=== PATIENT | female | born 1985 | race American Indian/Alaskan Native ===

== ENCOUNTER 2021-08-30 17:06 | Inpatient (IN) | payer OTHER ==
[2021-08-30] MEDS ORDERED: SODIUM CHLORIDE 0.9% 1000 ML 1,000 ML IV ONE (17:28)
[2021-08-30 18:22] LABS: Alanine Aminotransferase 30 units/L (7-56); Albumin 4.8 g/dL (3.9-5); BUN/Creatinine Ratio 15; Blood Urea Nitrogen 34 mg/dL (7-17); Calcium 10.5 mg/dL (8.4-10.2); Hemolysis Index 34
[2021-08-30] MEDS ORDERED: INSULIN REGULAR, HUMAN 100 UNITS/1 ML IV ONE (18:31)
[2021-08-30 19:04] LABS: INR 1.05 (0.87-1.13); Monocytes # (Auto) 1.7 K/mm3 (0.0-0.8); Monocytes % (Auto) 10.2 % (0.0-7.3)
--- NOTE | 2021-08-30 19:10 | Cat Scan Report ---
CT BRAIN: 08/30/2021 INDICATION / CLINICAL INFORMATION: Altered Mental Status. COMPARISON: None available. FINDINGS: BRAIN/INTRACRANIAL STRUCTURES: Unenhanced CT images of the brain were obtained. There is no evidence of acute abnormality. Ventricles and sulci are prominent in size for a patient o f this age, consistent with some diffuse cerebral atrophy. There is no evidence of acute ischemic injury, hemorrhage, or mass. There are no abnormal extra-axial fluid collections. EXTRACRANIAL STRUCTURES: Unremarkable. IMPRESSION: No acute abnormality. Diffuse cerebral atrophy. All CT scans at this location are performed using dose reduction to ALARA by means of automated expos ure control. Signer Name: Gurinder Wyatt MD Signed: 08/30/2021 7:06 PM Workstation Name: [id number]
[2021-08-30 19:11] LABS: Basophils % (Auto) 0.3 % (0.0-1.8); Hematocrit 48.2 % (30.3-42.9); Hemoglobin 12.3 gm/dl (10.1-14.3); Lymphocytes % (Auto) 5.9 % (13.4-35.0); Mean Corpuscular HGB Conc 26 % (30-34); Mean Corpuscular Volume 101 fl (79-97); Platelet Count 386 K/mm3 (140-440); Red Blood Count 4.79 M/mm3 (3.65-5.03); Red Cell Distribution Width 18.2 % (13.2-15.2)
--- NOTE | 2021-08-30 19:34 | Emergency Department Report ---
ED Altered Mental Status HPI - General Chief Complaint: Altered Mental Status Stated Complaint: AMS Time Seen by Provider: 08/30/21 17:22 Source: EMS Mode of arrival: Stretcher Limitations: Altered Mental Status - History of Present Illness Initial Comments: PT ARRIVING FROM HOME, FAMILY CALLED FOR AMS. "BEEN OFF SINCE THIS MORNING". URINATED SELF. BGL READ "HIGH" FOR EMS. 18L [place] Complaint: altered mental status, confusion, decreased responsiveness -: hour(s) Severity: severe Consistency of Symptoms: getting worse Context: diabetes Associated Symptoms: denies other symptoms - Related Data Allergies Allergy/AdvReac Type Severity Reaction Status Date / Time No Known Allergies Allergy Verified 08/30/21 17:10 ED Review of Systems ROS: Stated complaint: AMS Other details as noted in HPI Comment: Unobtainable due to pts medical conditions ED Past Medical Hx - Past Medical History Hx Hypertension: Yes Hx Diabetes: Yes ED Physical Exam - General Limitations: Altered Mental Status General appearance: lethargic, obese - Head Head exam: Present: atraumatic, normocephalic - Eye Eye exam: Present: normal appearance - ENT ENT exam: Present: mucous membranes moist - Neck Neck exam: Present: normal inspection - Respiratory Respiratory exam: Present: normal lung sounds bilaterally. Absent: respiratory distress - Cardiovascular Cardiovascular Exam: Present: normal rhythm, tachycardia. Absent: systolic murmur, diastolic murmur, rubs, gallop - GI/Abdominal GI/Abdominal exam: Present: soft, normal bowel sounds - Extremities Exam Extremities exam: Present: normal inspection - Back Exam Back exam: Present: normal inspection - Neurological Exam Neurological exam: Present: altered - Expanded Neurological Exam Expanded Patient oriented to: Absent: person, place, time - Psychiatric Psychiatric exam: Present: normal affect, normal mood - Skin Skin exam: Present: warm, dry, intact, normal color. Absent: rash ED Course Vital Signs 08/30/21 08/30/21 08/30/21 17:07 17:38 17:42 Temperature 98 F Pulse Rate 104 H 108 H Respiratory 20 30 H Rate Blood Pressure 135/74 [Left] O2 Sat by Pulse 96 97 Oximetry - Reevaluation(s) Reevaluation #1: 08/30/21 19:31 work up showed high BS 1955 , fluids given ct head negative , insulin bolus and drip given DKA protocol - Lab Data Result diagrams: 08/30/21 17:40 08/30/21 18:45 Lab Results 08/30/21 08/30/21 08/30/21 Range/Units 17:26 17:40 17:40 WBC 16.3 H (4.5-11.0) K/mm3 RBC 4.79 (3.65-5.03) M/mm3 Hgb 12.3 (10.1-14.3) gm/dl Hct 48.2 H (30.3-42.9) % MCV 101 H (79-97) fl MCH 26 L (28-32) pg MCHC 26 L (30-34) % RDW 18.2 H (13.2-15.2) % Plt Count 386 (140-440) K/mm3 Lymph % (Auto) 5.9 L (13.4-35.0) % [place] % (Auto) 10.2 H (0.0-7.3) % Eos % (Auto) 0.0 (0.0-4.3) % Baso % (Auto) 0.3 (0.0-1.8) % Lymph # (Auto) 1.0 L (1.2-5.4) K/mm3 [place] # (Auto) 1.7 H (0.0-0.8) K/mm3 Eos # (Auto) 0.0 (0.0-0.4) K/mm3 Baso # (Auto) 0.0 (0.0-0.1) K/mm3 Seg Neutrophils % 83.6 H (40.0-70.0) % Seg Neutrophils # 13.6 H (1.8-7.7) K/mm3 PT 14.9 (12.2-14.9) Sec. INR 1.05 (0.87-1.13) Sodium (137-145) mmol/L Potassium (3.6-5.0) mmol/L Chloride (98-107) mmol/L Carbon Dioxide (22-30) mmol/L Anion Gap mmol/L BUN (7-17) mg/dL Creatinine (0.6-1.2) mg/dL Estimated GFR ml/min BUN/Creatinine Ratio % Glucose (65-100) mg/dL POC Glucose > 600 H (70-105) mg/dL Ketones Quantitative (Negative) Lactic Acid (0.7-2.0) mmol/L Calcium (8.4-10.2) mg/dL Phosphorus (2.5-4.5) mg/dL Magnesium (1.7-2.3) mg/dL Total Bilirubin (0.1-1.2) mg/dL AST (5-40) units/L ALT (7-56) units/L Alkaline Phosphatase (35-129) units/L Ammonia (25-60) umol/L Total Creatine Kinase (30-135) units/L Troponin T (0.00-0.029) ng/mL Total Protein (6.3-8.2) g/dL Albumin (3.9-5) g/dL Albumin/Globulin Ratio % Salicylates (2.8-20.0) mg/dL Acetaminophen (10.0-30.0) ug/mL Plasma/Serum Alcohol (0-0.07) % 08/30/21 08/30/21 08/30/21 Range/Units 17:40 17:40 17:40 WBC (4.5-11.0) K/mm3 RBC (3.65-5.03) M/mm3 Hgb (10.1-14.3) gm/dl Hct (30.3-42.9) % MCV (79-97) fl MCH (28-32) pg MCHC (30-34) % RDW (13.2-15.2) % Plt Count (140-440) K/mm3 Lymph % (Auto) (13.4-35.0) % [place] % (Auto) (0.0-7.3) % Eos % (Auto) (0.0-4.3) % Baso % (Auto) (0.0-1.8) % Lymph # (Auto) (1.2-5.4) K/mm3 [place] # (Auto) (0.0-0.8) K/mm3 Eos # (Auto) (0.0-0.4) K/mm3 Baso # (Auto) (0.0-0.1) K/mm3 Seg Neutrophils % (40.0-70.0) % Seg Neutrophils # (1.8-7.7) K/mm3 PT (12.2-14.9) Sec. INR (0.87-1.13) Sodium 129 L (137-145) mmol/L Potassium 5.5 H (3.6-5.0) mmol/L Chloride 87.6 L (98-107) mmol/L Carbon Dioxide 16 L (22-30) mmol/L Anion Gap 31 mmol/L BUN 34 H (7-17) mg/dL Creatinine 2.3 H (0.6-1.2) mg/dL Estimated GFR 29 ml/min BUN/Creatinine Ratio 15 % Glucose 1955 H* (65-100) mg/dL POC Glucose (70-105) mg/dL Ketones Quantitative (Negative) Lactic Acid 4.20 H* (0.7-2.0) mmol/L Calcium 10.5 H (8.4-10.2) mg/dL Phosphorus (2.5-4.5) mg/dL Magnesium (1.7-2.3) mg/dL Total Bilirubin 0.30 (0.1-1.2) mg/dL AST 17 (5-40) units/L ALT 30 (7-56) units/L Alkaline Phosphatase 274 H (35-129) units/L Ammonia (25-60) umol/L Total Creatine Kinase (30-135) units/L Troponin T < 0.010 (0.00-0.029) ng/mL Total Protein 9.0 H (6.3-8.2) g/dL Albumin 4.8 (3.9-5) g/dL Albumin/Globulin Ratio 1.1 % Salicylates < 0.3 L (2.8-20.0) mg/dL Acetaminophen (10.0-30.0) ug/mL Plasma/Serum Alcohol (0-0.07) % 08/30/21 08/30/21 08/30/21 Range/Units 17:40 17:40 17:40 WBC (4.5-11.0) K/mm3 RBC (3.65-5.03) M/mm3 Hgb (10.1-14.3) gm/dl Hct (30.3-42.9) % MCV (79-97) fl MCH (28-32) pg MCHC (30-34) % RDW (13.2-15.2) % Plt Count (140-440) K/mm3 Lymph % (Auto) (13.4-35.0) % [place] % (Auto) (0.0-7.3) % Eos % (Auto) (0.0-4.3) % Baso % (Auto) (0.0-1.8) % Lymph # (Auto) (1.2-5.4) K/mm3 [place] # (Auto) (0.0-0.8) K/mm3 Eos # (Auto) (0.0-0.4) K/mm3 Baso # (Auto) (0.0-0.1) K/mm3 Seg Neutrophils % (40.0-70.0) % Seg Neutrophils # (1.8-7.7) K/mm3 PT (12.2-14.9) Sec. INR (0.87-1.13) Sodium (137-145) mmol/L Potassium (3.6-5.0) mmol/L Chloride (98-107) mmol/L Carbon Dioxide (22-30) mmol/L Anion Gap mmol/L BUN (7-17) mg/dL Creatinine (0.6-1.2) mg/dL Estimated GFR ml/min BUN/Creatinine Ratio % Glucose (65-100) mg/dL POC Glucose (70-105) mg/dL Ketones Quantitative (Negative) Lactic Acid (0.7-2.0) mmol/L Calcium (8.4-10.2) mg/dL Phosphorus (2.5-4.5) mg/dL Magnesium (1.7-2.3) mg/dL Total Bilirubin (0.1-1.2) mg/dL AST (5-40) units/L ALT (7-56) units/L Alkaline Phosphatase (35-129) units/L Ammonia 18.0 L (25-60) umol/L Total Creatine Kinase (30-135) units/L Troponin T (0.00-0.029) ng/mL Total Protein (6.3-8.2) g/dL Albumin (3.9-5) g/dL Albumin/Globulin Ratio % Salicylates (2.8-20.0) mg/dL Acetaminophen 5.0 L (10.0-30.0) ug/mL Plasma/Serum Alcohol < 0.01 (0-0.07) % 08/30/21 08/30/21 08/30/21 Range/Units 17:40 17:40 18:45 WBC (4.5-11.0) K/mm3 RBC (3.65-5.03) M/mm3 Hgb (10.1-14.3) gm/dl Hct (30.3-42.9) % MCV (79-97) fl MCH (28-32) pg MCHC (30-34) % RDW (13.2-15.2) % Plt Count (140-440) K/mm3 Lymph % (Auto) (13.4-35.0) % [place] % (Auto) (0.0-7.3) % Eos % (Auto) (0.0-4.3) % Baso % (Auto) (0.0-1.8) % Lymph # (Auto) (1.2-5.4) K/mm3 [place] # (Auto) (0.0-0.8) K/mm3 Eos # (Auto) (0.0-0.4) K/mm3 Baso # (Auto) (0.0-0.1) K/mm3 Seg Neutrophils % (40.0-70.0) % Seg Neutrophils # (1.8-7.7) K/mm3 PT (12.2-14.9) Sec. INR (0.87-1.13) Sodium 134 L (137-145) mmol/L Potassium 4.6 (3.6-5.0) mmol/L Chloride 92.3 L (98-107) mmol/L Carbon Dioxide 14 L (22-30) mmol/L Anion Gap 32 mmol/L BUN 34 H (7-17) mg/dL Creatinine 2.0 H (0.6-1.2) mg/dL Estimated GFR 35 ml/min BUN/Creatinine Ratio 17 % Glucose 1848 H* (65-100) mg/dL POC Glucose (70-105) mg/dL Ketones Quantitative Small (Negative) Lactic Acid (0.7-2.0) mmol/L Calcium 10.0 (8.4-10.2) mg/dL Phosphorus 3.30 (2.5-4.5) mg/dL Magnesium 3.60 H (1.7-2.3) mg/dL Total Bilirubin (0.1-1.2) mg/dL AST (5-40) units/L ALT (7-56) units/L Alkaline Phosphatase (35-129) units/L Ammonia (25-60) umol/L Total Creatine Kinase 203 H (30-135) units/L Troponin T (0.00-0.029) ng/mL Total Protein (6.3-8.2) g/dL Albumin (3.9-5) g/dL Albumin/Globulin Ratio % Salicylates (2.8-20.0) mg/dL Acetaminophen (10.0-30.0) ug/mL Plasma/Serum Alcohol (0-0.07) % - EKG Data EKG shows normal: sinus rhythm Rate: tachycardia Critical Care Time: Yes Critical care time in (mins) excluding proc time.: 65 Critical care attestation.: If time is entered above; I have spent that time in minutes in the direct care of this critically ill patient, excluding procedure time. ED Disposition Clinical Impression: Altered mental status, DKA (diabetic ketoacidosis), MARITZA (acute kidney injury), Hyperglycemia Disposition: 09 ADMITTED INPATIENT Is pt being admited?: Yes Does the pt Need Aspirin: No Condition: Critical Instructions: Diabetic Ketoacidosis (ED) Referrals: PRIMARY CARE, [Primary Care Provider] - 3-5 Days
[2021-08-30] MEDS: INSULIN REGULAR, HUMAN 100 UNITS in SODIUM CHLORIDE 0.9% 99 ML IV SCH (19:42)
--- NOTE | 2021-08-30 20:27 | XRay Report ---
CHEST 1 VIEW 08/30/2021 7:08 PM INDICATION / CLINICAL INFORMATION: Dyspnea. COMPARISON: None available. FINDINGS: SUPPORT DEVICES: None. HEART / MEDIASTINUM: No significant abnormality. LUNGS / PLEURA: There is patchy airspace opacity in the medial right lung base which could represent atelectasis or pneumonia. There are low lung volumes bilaterally. No pneumothorax. ADDITIONAL FINDINGS: No significant additional findings. IMPRESSION: 1. There are low lung volumes bilaterally. There is mild airspace opacity in the medial right lung ba se which could represent atelectasis or pneumonia. Signer Name: Rudy Wilcox MD Signed: 08/30/2021 8:23 PM Workstation Name: [email or web address]
[2021-08-30] MEDS ORDERED: oxyCODONE /ACETAMINOPHEN 5-325MG TAB PO PRN (20:51)
[2021-08-30] MEDS ORDERED: HYDROmorphone 1 MG/1 ML INJ IV PRN (20:51)
[2021-08-30] MEDS ORDERED: ONDANSETRON 4 MG/2 ML INJ IV PRN (20:51)
[2021-08-30] MEDS ORDERED: ACETAMINOPHEN 325 MG TAB PO PRN (20:51)
--- NOTE | 2021-08-30 20:51 | History and Physical Report ---
History of Present Illness Date of examination: 08/30/21 Date of admission: August 30, 2021 Chief complaint: Altered sensorium since morning History of present illness: Patient brought in by EMS for altered sensorium since morning. Patient had urinary incontinence at home. Blood glucose level was read as high by EMS. Patient has a history of diabetes but has been very noncompliant and was never on insulin. Patient is lethargic and unable to give more history. Data collected from the family says that patient was never on insulin and was noncompliant about taking any medicine. Patient apparently has diabetes and hypertension but no follow-up with PCPs. Not taking any medications. No fever or chills. Polyuria and polydipsia present. Patient is morbidly obese. ED course: Patient's blood glucose level was around 1840 and patient being admitted for DKA and electrolyte abnormalities - Past Medical History --Hypertension: Yes --Diabetes: Yes -past surgical history --unavailable -social history --unavailable -family history --Htn Review of Systems ROS: Constitutional no weight loss or weight gain no fever or chills HEENT no sore throat no post nasal drip no diplopia Neck no neck stiffness no lymph gland enlargement Chest and lungs no shortness of breath cough or wheezing CVS no chest pain no diaphoresis no palpitations GI no nausea no vomiting no diarrhea Genitourinary system polyuria present Musculoskeletal system no muscle pains no joint pains [employer] altered sensorium and lethargic Skin no rash no itching Psychiatric no depression no homicidal or suicidal tendencies Hematologic no lymphedema or bruising Endocrine polydipsia and polyphagia present, also polyuria present Medications and Allergies Allergies Allergy/AdvReac Type Severity Reaction Status Date / Time No Known Allergies Allergy Verified 08/30/21 17:10 Active Meds: Active Medications Insulin Human Regular 100 (units/ Sodium Chloride) 100 mls @ 1 mls/hr IV TITR SEAN; Protocol Last Admin: 08/30/21 19:42 Dose: 8 units/hr, 8 mls/hr Exam - Constitutional Vitals: Temp Pulse Resp BP Pulse Ox 97.6 F 112 H 30 H 107/72 99 08/30/21 19:15 08/30/21 19:15 08/30/21 19:15 08/30/21 19:15 08/30/21 19:15 General appearance: Present: mild distress, well-nourished, obese (Morbidly obese with BMI of 44.4) - EENT Eyes: Present: PERRL ENT: hearing intact, clear oral mucosa - Neck Neck: Present: supple, normal ROM - Respiratory Respiratory effort: normal Respiratory: bilateral: CTA - Cardiovascular Heart rate: 98 Rhythm: regular Heart Sounds: Present: S1 & S2. Absent: rub, click - Extremities Extremities: no ischemia, pulses intact, pulses symmetrical, No edema Peripheral Pulses: within normal limits - Abdominal General gastrointestinal: Present: soft, non-tender, non-distended, normal bowel sounds Female genitourinary: Present: normal - Rectal Rectal Exam: deferred - Integumentary Integumentary: Present: clear, warm, dry - Musculoskeletal Musculoskeletal: generalized weakness - Psychiatric Psychiatric: other (Patient with altered sensorium and lethargic) - Neurologic Neurologic: moves all extremities, other (Lethargic) - Allied Health Allied health notes reviewed: nursing, social work, case management HEART Score - HEART Score EKG: Normal Age: < 45 Risk factors: 1-2 risk factors Troponin: Troponin T < 0.010 ng/mL (0.00-0.029) 08/30/21 17:40 Troponin: < normal limit - Critical Actions Critical Actions: 0-3 pts:0.9-1.7%risk of adverse cardiac event.Candidate for discharge Results - Labs CBC & Chem 7: 08/30/21 17:40 08/31/21 03:20 Labs: Laboratory Last Values WBC 16.3 K/mm3 (4.5-11.0) H 08/30/21 17:40 RBC 4.79 M/mm3 (3.65-5.03) 08/30/21 17:40 Hgb 12.3 gm/dl (10.1-14.3) 08/30/21 17:40 Hct 48.2 % (30.3-42.9) H 08/30/21 17:40 MCV 101 fl (79-97) H 08/30/21 17:40 MCH 26 pg (28-32) L 08/30/21 17:40 MCHC 26 % (30-34) L 08/30/21 17:40 RDW 18.2 % (13.2-15.2) H 08/30/21 17:40 Plt Count 386 K/mm3 (140-440) 08/30/21 17:40 Lymph % (Auto) 5.9 % (13.4-35.0) L 08/30/21 17:40 [place] % (Auto) 10.2 % (0.0-7.3) H 08/30/21 17:40 Eos % (Auto) 0.0 % (0.0-4.3) 08/30/21 17:40 Baso % (Auto) 0.3 % (0.0-1.8) 08/30/21 17:40 Lymph # (Auto) 1.0 K/mm3 (1.2-5.4) L 08/30/21 17:40 [place] # (Auto) 1.7 K/mm3 (0.0-0.8) H 08/30/21 17:40 Eos # (Auto) 0.0 K/mm3 (0.0-0.4) 08/30/21 17:40 Baso # (Auto) 0.0 K/mm3 (0.0-0.1) 08/30/21 17:40 Seg Neutrophils % 83.6 % (40.0-70.0) H 08/30/21 17:40 Seg Neutrophils # 13.6 K/mm3 (1.8-7.7) H 08/30/21 17:40 PT 14.9 Sec. (12.2-14.9) 08/30/21 17:40 INR 1.05 (0.87-1.13) 08/30/21 17:40 Sodium 134 mmol/L (137-145) L 08/30/21 18:45 Potassium 4.6 mmol/L (3.6-5.0) 08/30/21 18:45 Chloride 92.3 mmol/L (98-107) L 08/30/21 18:45 Carbon Dioxide 14 mmol/L (22-30) L 08/30/21 18:45 Anion Gap 32 mmol/L 08/30/21 18:45 BUN 34 mg/dL (7-17) H 08/30/21 18:45 Creatinine 2.0 mg/dL (0.6-1.2) H 08/30/21 18:45 Estimated GFR 35 ml/min 08/30/21 18:45 BUN/Creatinine Ratio 17 % 08/30/21 18:45 Glucose 1848 mg/dL (65-100) H* 08/30/21 18:45 POC Glucose > 600 mg/dL (70-105) H 08/30/21 17:26 Ketones Quantitative Small (Negative) 08/30/21 17:40 Lactic Acid 4.20 mmol/L (0.7-2.0) H* 08/30/21 17:40 Calcium 10.0 mg/dL (8.4-10.2) 08/30/21 18:45 Phosphorus 3.30 mg/dL (2.5-4.5) 08/30/21 18:45 Magnesium 3.60 mg/dL (1.7-2.3) H 08/30/21 18:45 Total Bilirubin 0.30 mg/dL (0.1-1.2) 08/30/21 17:40 AST 17 units/L (5-40) 08/30/21 17:40 ALT 30 units/L (7-56) 08/30/21 17:40 Alkaline Phosphatase 274 units/L (35-129) H 08/30/21 17:40 Ammonia 18.0 umol/L (25-60) L 08/30/21 17:40 Total Creatine Kinase 203 units/L (30-135) H 08/30/21 17:40 Troponin T < 0.010 ng/mL (0.00-0.029) 08/30/21 17:40 Total Protein 9.0 g/dL (6.3-8.2) H 08/30/21 17:40 Albumin 4.8 g/dL (3.9-5) 08/30/21 17:40 Albumin/Globulin Ratio 1.1 % 08/30/21 17:40 Salicylates < 0.3 mg/dL (2.8-20.0) L 08/30/21 17:40 Acetaminophen 5.0 ug/mL (10.0-30.0) L 08/30/21 17:40 Plasma/Serum Alcohol < 0.01 % (0-0.07) 08/30/21 17:40 Short CBC 08/30/21 Range/Units 17:40 WBC 16.3 H (4.5-11.0) K/mm3 Hgb 12.3 (10.1-14.3) gm/dl Hct 48.2 H (30.3-42.9) % Plt Count 386 (140-440) K/mm3 [facility] 08/30/21 08/30/21 08/30/21 17:40 18:45 20:24 Sodium 129 L 134 L 136 L Potassium 5.5 H 4.6 4.4 Chloride 87.6 L 92.3 L 98.0 Carbon Dioxide 16 L 14 L 10 L BUN 34 H 34 H 35 H Creatinine 2.3 H 2.0 H 2.2 H Glucose 1955 H* 1848 H* 1720 H* Calcium 10.5 H 10.0 9.4 08/30/21 08/31/21 08/31/21 23:45 01:23 03:20 Sodium 142 143 Potassium 3.9 4.1 Chloride 103.7 105.8 Carbon Dioxide 17 L D 17 L BUN 39 H 39 H Creatinine 2.6 H 2.8 H Glucose 1518 H* 1421 H* 1181 H* Calcium 9.8 9.7 Cardiac Enzymes 08/30/21 08/30/21 Range/Units 17:40 17:40 Total Creatine Kinase 203 H (30-135) units/L Troponin T < 0.010 (0.00-0.029) ng/mL Liver Function 08/30/21 Range/Units 17:40 Total Bilirubin 0.30 (0.1-1.2) mg/dL AST 17 (5-40) units/L ALT 30 (7-56) units/L Alkaline Phosphatase 274 H (35-129) units/L Albumin 4.8 (3.9-5) g/dL Urine 08/30/21 Range/Units 22:56 Urine Color Straw (Yellow) Urine pH 6.0 (5.0-7.0) Ur Specific [place] 1.029 (1.003-1.030) Urine Protein 30 mg/dl (Negative) mg/dL Urine Glucose (UA) >=500 (Negative) mg/dL Short CBC 08/30/21 Range/Units 17:40 WBC 16.3 H (4.5-11.0) K/mm3 Hgb 12.3 (10.1-14.3) gm/dl Hct 48.2 H (30.3-42.9) % Plt Count 386 (140-440) K/mm3 [facility] 08/30/21 08/30/21 08/30/21 17:40 18:45 20:24 Sodium 129 L 134 L 136 L Potassium 5.5 H 4.6 4.4 Chloride 87.6 L 92.3 L 98.0 Carbon Dioxide 16 L 14 L 10 L BUN 34 H 34 H 35 H Creatinine 2.3 H 2.0 H 2.2 H Glucose 1955 H* 1848 H* 1720 H* Calcium 10.5 H 10.0 9.4 08/30/21 08/31/21 08/31/21 23:45 01:23 03:20 Sodium 142 143 Potassium 3.9 4.1 Chloride 103.7 105.8 Carbon Dioxide 17 L D 17 L BUN 39 H 39 H Creatinine 2.6 H 2.8 H Glucose 1518 H* 1421 H* 1181 H* Calcium 9.8 9.7 Cardiac Enzymes 08/30/21 08/30/21 Range/Units 17:40 17:40 Total Creatine Kinase 203 H (30-135) units/L Troponin T < 0.010 (0.00-0.029) ng/mL Liver Function 08/30/21 Range/Units 17:40 Total Bilirubin 0.30 (0.1-1.2) mg/dL AST 17 (5-40) units/L ALT 30 (7-56) units/L Alkaline Phosphatase 274 H (35-129) units/L Albumin 4.8 (3.9-5) g/dL Urine 08/30/21 Range/Units 22:56 Urine Color Straw (Yellow) Urine pH 6.0 (5.0-7.0) Ur Specific [place] 1.029 (1.003-1.030) Urine Protein 30 mg/dl (Negative) mg/dL Urine Glucose (UA) >=500 (Negative) mg/dL - Imaging and Cardiology Imaging and Cardiology: Head CT No acute abnormality Diffuse cerebral atrophy Chest x-ray Low lung volumes bilaterally Mild airspace opacity in the medial right lung base which could represent atelectasis or pneumonia Assessment and Plan Assessment and plan: Critical care statement The high probability OF a clinically significant sudden or life-threatening deterioration of the cardiorespiratory system and endocrine system required my full and direct attention, intervention and postoperative management. The aggregate critical care time was 40 minutes. The time is in addition to time spent performing reported procedures but includes the followin: Data review and interpretation 2: Patient assessment and monitoring of vital signs 3: Documentation 4:: Medication orders and management Advance Directives: Yes (Full code) VTE prophylaxis?: Chemical Plan of care discussed with patient/family: Yes - Patient Problems (1) Acute metabolic encephalopathy Current Visit: Yes Status: Acute Plan to address problem: Secondary to hyperosmolar state Patient is lethargic and confused Should improve with correction of blood glucose levels No acute findings on head CT except cerebral atrophy which may be overread (2) Hyperosmolar non-ketotic state in patient with type 2 diabetes mellitus Current Visit: Yes Status: Acute Plan to address problem: Urine ketones only 20 More in favor of hyperosmolar nonketotic state Noncompliant with oral hypoglycemics Not on insulin DKA protocol initiated IV fluids and IV insulin Anion gap is 32 and bicarb is 14 (3) Systemic inflammatory response syndrome Current Visit: Yes Status: Acute Plan to address problem: White count is elevated with 16,300 WBCs and lactic acid of 5.1 In favor of systemic inflammatory response syndrome (4) Pneumonia Current Visit: Yes Status: Acute Qualifiers: Pneumonia type: due to unspecified organism Plan to address problem: Doubtful opacity on the right lower lung Treat empirically with IV ceftriaxone and IV Zithromax White count is elevated (5) Metabolic acidosis Current Visit: Yes Status: Acute Plan to address problem: Secondary to severe hyperglycemia and hyperosmolar state IV insulin and IV fluids for now Anion gap is 32 and bicarb is 14 Sodium bicarb as necessary (6) Hyponatremia Current Visit: Yes Status: Acute Plan to address problem: Should correct with correction of blood glucose levels (7) MARITZA (acute kidney injury) Current Visit: Yes Status: Acute Plan to address problem: Nephrology consult if necessary More in favor of dehydration and volume depletion Vasomotor nephropathy IV fluids for now (8) Morbid obesity due to excess calories Current Visit: Yes Status: Chronic Plan to address problem: Patient to be given referral to bariatric surgery department in the hospital--- Dr. Fine at the time of discharge (9) DVT prophylaxis Current Visit: Yes Status: Acute Plan to address problem: On anticoagulation and GI prophylaxis (10) Advance care planning Current Visit: Yes Status: Acute Plan to address problem: Family counseled regarding noncompliance. Disease education conducted care plan discussion diagnosis discussed prognosis discussed with the family. Patient is full code. Family acknowledges understanding and agreement with care plan. +30 minutes.
[2021-08-30] MEDS ORDERED: DEXTROSE 50% IN WATER (25GM) 50 ML SYRINGE IV PRN (20:57)
[2021-08-30] MEDS ORDERED: D5W/0.45% NACL/KCL 20 MEQ 20 MEQ/1,000 ML BAG IV SCH (21:00)
[2021-08-30 21:12] LABS: Calcium 9.4 mg/dL (8.4-10.2)
[2021-08-30] MEDS: POTASSIUM CHLORIDE 10 MEQ 10 MEQ/100 ML BAG IV SCH (22:54)
[2021-08-30] MEDS: HEPARIN 5,000 UNIT/1 ML VIAL SUB-Q SCH (22:54)
[2021-08-30 23:14] LABS: Bilirubin,Urine NEG (Negative); Blood,Urine LG (Negative); Color,Urine Straw (Yellow); Mucus,Urine FEW /HPF; Urobilinogen,Urine < 2.0 mg/dL (<2.0)
[2021-08-30] MEDS ORDERED: LORazepam 2 MG/ML VIAL IV PRN (23:29)
[2021-08-30] MEDS ORDERED: SODIUM CHLORIDE 0.9% 1000 ML 1,000 ML ONE (23:31)
[2021-08-30 23:34] LABS: Amphetamine Screen,Urine PRESUMPTIVE NEGATIVE; Benzodiazepines Screen,Urine PRESUMPTIVE NEGATIVE; Cannabinoid Screen,Urine PRESUMPTIVE NEGATIVE; Cocaine Screen,Urine PRESUMPTIVE NEGATIVE; Methadone Screen,Urine PRESUMPTIVE NEGATIVE; Opiate Screen,Urine PRESUMPTIVE NEGATIVE
[2021-08-30] MEDS: LORazepam 2 MG/ML VIAL IV PRN (23:38)
[2021-08-31 00:08] LABS: Calcium 9.8 mg/dL (8.4-10.2)
[2021-08-31] MEDS: POTASSIUM CHLORIDE 10 MEQ 10 MEQ/100 ML BAG IV SCH ×3 (00:28→02:32)
[2021-08-31 01:49] LABS: Calcium 9.7 mg/dL (8.4-10.2)
[2021-08-31] MEDS ORDERED: LACTATED RINGERS 1,000 ML IV ONE ×3 (03:29→05:41)
[2021-08-31] MEDS ORDERED: LACTATED RINGERS 1,000 ML ONE (03:30)
[2021-08-31] MEDS: SODIUM CHLORIDE 0.9% 1000 ML 1,000 ML IV SCH ×2 (04:32→16:17)
[2021-08-31] MEDS: INSULIN REGULAR, HUMAN 100 UNITS in SODIUM CHLORIDE 0.9% 99 ML IV SCH ×4 (04:33→16:17)
[2021-08-31 06:50] LABS: Calcium 9.2 mg/dL (8.4-10.2)
[2021-08-31] MEDS ORDERED: cefTRIAXone/NS 2 GM/100 ML 2 GM/100 ML BAG IV SCH ×2 (07:00)
[2021-08-31] MEDS ORDERED: AZITHROMYCIN/NS 500 MG/250 ML 500 MG/250 ML BAG IV SCH (07:00)
[2021-08-31] MEDS: LORazepam 2 MG/ML VIAL IV PRN ×3 (08:35→21:06)
[2021-08-31] MEDS: HEPARIN 5,000 UNIT/1 ML VIAL SUB-Q SCH ×2 (10:49→21:06)
[2021-08-31 11:35] LABS: Calcium 9.9 mg/dL (8.4-10.2)
--- NOTE | 2021-08-31 13:28 | Consultation ---
History of Present Illness - Reason for Consult Consult date: 08/31/21 AMS and DKA - History of Present Illness 35 y/o obese female admitted with altered mental status and found to be in DKA Past History Past Medical History: diabetes Past Surgical History: Other (unable to obtain) Social history: other (unable to obtain) Family history: no significant family history (unable to obtain) Medications and Allergies Allergies Allergy/AdvReac Type Severity Reaction Status Date / Time No Known Allergies Allergy Verified 08/30/21 17:10 Active Meds: Active Medications Acetaminophen (Acetaminophen 325 Mg Tab) 650 mg PO Q4H PRN PRN Reason: Pain MILD(1-3)/Fever >100.5/MUÑOZ Dextrose (Dextrose 50% In Water (25gm) 50 Ml Syringe) 0 ml IV Q30MIN PRN; Protocol PRN Reason: Hypoglycemia Heparin Sodium (Porcine) (Heparin 5,000 Unit/1 Ml Vial) 5,000 unit SUB-Q Q12HR SEAN Last Admin: 08/31/21 10:49 Dose: 5,000 unit Hydromorphone HCl (Hydromorphone 1 Mg/1 Ml Inj) 0.5 mg IV Q3H PRN PRN Reason: Pain , Severe (7-10) Insulin Human Regular 100 (units/ Sodium Chloride) 100 mls @ 1 mls/hr IV TITR SEAN; Protocol Last Titration: 08/31/21 13:10 Dose: 32 units/hr, 32 mls/hr Potassium Chloride/Dextrose/Sod Cl (D5w/0.45% Nacl/Kcl 20 Meq) 20 meq in 1,000 mls @ 125 mls/hr IV DIRECT SEAN Sodium Chloride (Nacl 0.9% 1000 Ml) 1,000 mls @ 125 mls/hr IV DIRECT SEAN Last Admin: 08/31/21 04:32 Dose: 125 mls/hr Lorazepam (Lorazepam 2 Mg/Ml Vial) 2 mg IV Q4H PRN PRN Reason: Agitation Last Admin: 08/31/21 08:35 Dose: 2 mg Lorazepam (Lorazepam 2 Mg/Ml Vial) 1 mg IV Q4H PRN PRN Reason: Agitation Last Admin: 08/31/21 04:20 Dose: 1 mg Ondansetron HCl (Ondansetron 4 Mg/2 Ml Inj) 4 mg IV Q8H PRN PRN Reason: Nausea And Vomiting Oxycodone/Acetaminophen (Oxycodone /Acetaminophen 5-325mg Tab) 1 tab PO Q6H PRN PRN Reason: Pain, Moderate (4-6) Sodium Chloride (Sodium Chloride 0.9% 10 Ml Flush Syringe) 10 ml IV BID SEAN Last Admin: 08/31/21 10:49 Dose: 10 ml Sodium Chloride (Sodium Chloride 0.9% 10 Ml Flush Syringe) 10 ml IV PRN PRN PRN Reason: LINE FLUSH Review of Systems ROS unobtainable: due to mental status Exam - Constitutional Vitals: Temp Pulse Resp BP Pulse Ox 98.2 F 109 H 22 122/79 96 08/31/21 11:40 08/31/21 12:00 08/30/21 22:00 08/30/21 22:00 08/31/21 12:00 General appearance: Present: obese, disheveled - Neck Neck: Present: supple, other (large circumference) - Respiratory Respiratory effort: other (tachypnic) Respiratory: bilateral: CTA - Cardiovascular Rhythm: regular Heart Sounds: Present: S1 & S2 - Extremities Extremities: no ischemia - Abdominal General gastrointestinal: Present: soft, distended Female genitourinary: Present: deferred - Rectal Rectal Exam: deferred - Integumentary Integumentary: Present: warm (with multiple tattoos) Results - Labs CBC & Chem 7: 09/03/21 04:25 09/03/21 04:25 Labs: Abnormal lab results 08/30/21 08/30/21 08/30/21 Range/Units 03:20 17:26 17:40 WBC 16.3 H (4.5-11.0) K/mm3 Hct 48.2 H (30.3-42.9) % MCV 101 H (79-97) fl MCH 26 L (28-32) pg MCHC 26 L (30-34) % RDW 18.2 H (13.2-15.2) % Lymph % (Auto) 5.9 L (13.4-35.0) % [place] % (Auto) 10.2 H (0.0-7.3) % Lymph # (Auto) 1.0 L (1.2-5.4) K/mm3 [place] # (Auto) 1.7 H (0.0-0.8) K/mm3 Seg Neutrophils % 83.6 H (40.0-70.0) % Seg Neutrophils # 13.6 H (1.8-7.7) K/mm3 Sodium (137-145) mmol/L Potassium (3.6-5.0) mmol/L Chloride (98-107) mmol/L Carbon Dioxide (22-30) mmol/L BUN (7-17) mg/dL Creatinine (0.6-1.2) mg/dL Glucose (65-100) mg/dL POC Glucose > 600 H (70-105) mg/dL Lactic Acid 5.10 H* (0.7-2.0) mmol/L Calcium (8.4-10.2) mg/dL Phosphorus (2.5-4.5) mg/dL Magnesium (1.7-2.3) mg/dL Alkaline Phosphatase (35-129) units/L Ammonia (25-60) umol/L Total Creatine Kinase (30-135) units/L Total Protein (6.3-8.2) g/dL Salicylates (2.8-20.0) mg/dL Acetaminophen (10.0-30.0) ug/mL 08/30/21 08/30/21 08/30/21 Range/Units 17:40 17:40 17:40 WBC (4.5-11.0) K/mm3 Hct (30.3-42.9) % MCV (79-97) fl MCH (28-32) pg MCHC (30-34) % RDW (13.2-15.2) % Lymph % (Auto) (13.4-35.0) % [place] % (Auto) (0.0-7.3) % Lymph # (Auto) (1.2-5.4) K/mm3 [place] # (Auto) (0.0-0.8) K/mm3 Seg Neutrophils % (40.0-70.0) % Seg Neutrophils # (1.8-7.7) K/mm3 Sodium 129 L (137-145) mmol/L Potassium 5.5 H (3.6-5.0) mmol/L Chloride 87.6 L (98-107) mmol/L Carbon Dioxide 16 L (22-30) mmol/L BUN 34 H (7-17) mg/dL Creatinine 2.3 H (0.6-1.2) mg/dL Glucose 1955 H* (65-100) mg/dL POC Glucose (70-105) mg/dL Lactic Acid 4.20 H* (0.7-2.0) mmol/L Calcium 10.5 H (8.4-10.2) mg/dL Phosphorus (2.5-4.5) mg/dL Magnesium (1.7-2.3) mg/dL Alkaline Phosphatase 274 H (35-129) units/L Ammonia (25-60) umol/L Total Creatine Kinase (30-135) units/L Total Protein 9.0 H (6.3-8.2) g/dL Salicylates < 0.3 L (2.8-20.0) mg/dL Acetaminophen (10.0-30.0) ug/mL 08/30/21 08/30/21 08/30/21 Range/Units 17:40 17:40 17:40 WBC (4.5-11.0) K/mm3 Hct (30.3-42.9) % MCV (79-97) fl MCH (28-32) pg MCHC (30-34) % RDW (13.2-15.2) % Lymph % (Auto) (13.4-35.0) % [place] % (Auto) (0.0-7.3) % Lymph # (Auto) (1.2-5.4) K/mm3 [place] # (Auto) (0.0-0.8) K/mm3 Seg Neutrophils % (40.0-70.0) % Seg Neutrophils # (1.8-7.7) K/mm3 Sodium (137-145) mmol/L Potassium (3.6-5.0) mmol/L Chloride (98-107) mmol/L Carbon Dioxide (22-30) mmol/L BUN (7-17) mg/dL Creatinine (0.6-1.2) mg/dL Glucose (65-100) mg/dL POC Glucose (70-105) mg/dL Lactic Acid (0.7-2.0) mmol/L Calcium (8.4-10.2) mg/dL Phosphorus (2.5-4.5) mg/dL Magnesium (1.7-2.3) mg/dL Alkaline Phosphatase (35-129) units/L Ammonia 18.0 L (25-60) umol/L Total Creatine Kinase 203 H (30-135) units/L Total Protein (6.3-8.2) g/dL Salicylates (2.8-20.0) mg/dL Acetaminophen 5.0 L (10.0-30.0) ug/mL 08/30/21 08/30/21 08/30/21 Range/Units 18:45 20:24 21:09 WBC (4.5-11.0) K/mm3 Hct (30.3-42.9) % MCV (79-97) fl MCH (28-32) pg MCHC (30-34) % RDW (13.2-15.2) % Lymph % (Auto) (13.4-35.0) % [place] % (Auto) (0.0-7.3) % Lymph # (Auto) (1.2-5.4) K/mm3 [place] # (Auto) (0.0-0.8) K/mm3 Seg Neutrophils % (40.0-70.0) % Seg Neutrophils # (1.8-7.7) K/mm3 Sodium 134 L 136 L (137-145) mmol/L Potassium (3.6-5.0) mmol/L Chloride 92.3 L (98-107) mmol/L Carbon Dioxide 14 L 10 L (22-30) mmol/L BUN 34 H 35 H (7-17) mg/dL Creatinine 2.0 H 2.2 H (0.6-1.2) mg/dL Glucose 1848 H* 1720 H* (65-100) mg/dL POC Glucose > 600 H (70-105) mg/dL Lactic Acid (0.7-2.0) mmol/L Calcium (8.4-10.2) mg/dL Phosphorus (2.5-4.5) mg/dL Magnesium 3.60 H (1.7-2.3) mg/dL Alkaline Phosphatase (35-129) units/L Ammonia (25-60) umol/L Total Creatine Kinase (30-135) units/L Total Protein (6.3-8.2) g/dL Salicylates (2.8-20.0) mg/dL Acetaminophen (10.0-30.0) ug/mL 08/30/21 08/30/21 08/30/21 Range/Units 22:19 23:45 23:45 WBC (4.5-11.0) K/mm3 Hct (30.3-42.9) % MCV (79-97) fl MCH (28-32) pg MCHC (30-34) % RDW (13.2-15.2) % Lymph % (Auto) (13.4-35.0) % [place] % (Auto) (0.0-7.3) % Lymph # (Auto) (1.2-5.4) K/mm3 [place] # (Auto) (0.0-0.8) K/mm3 Seg Neutrophils % (40.0-70.0) % Seg Neutrophils # (1.8-7.7) K/mm3 Sodium (137-145) mmol/L Potassium (3.6-5.0) mmol/L Chloride (98-107) mmol/L Carbon Dioxide 17 L D (22-30) mmol/L BUN 39 H (7-17) mg/dL Creatinine 2.6 H (0.6-1.2) mg/dL Glucose 1518 H* (65-100) mg/dL POC Glucose > 600 H (70-105) mg/dL Lactic Acid (0.7-2.0) mmol/L Calcium (8.4-10.2) mg/dL Phosphorus 1.40 L D (2.5-4.5) mg/dL Magnesium 3.60 H (1.7-2.3) mg/dL Alkaline Phosphatase (35-129) units/L Ammonia (25-60) umol/L Total Creatine Kinase (30-135) units/L Total Protein (6.3-8.2) g/dL Salicylates (2.8-20.0) mg/dL Acetaminophen (10.0-30.0) ug/mL 08/31/21 08/31/21 08/31/21 Range/Units 01:23 03:20 05:40 WBC (4.5-11.0) K/mm3 Hct (30.3-42.9) % MCV (79-97) fl MCH (28-32) pg MCHC (30-34) % RDW (13.2-15.2) % Lymph % (Auto) (13.4-35.0) % [place] % (Auto) (0.0-7.3) % Lymph # (Auto) (1.2-5.4) K/mm3 [place] # (Auto) (0.0-0.8) K/mm3 Seg Neutrophils % (40.0-70.0) % Seg Neutrophils # (1.8-7.7) K/mm3 Sodium 152 H D (137-145) mmol/L Potassium (3.6-5.0) mmol/L Chloride 116.3 H (98-107) mmol/L Carbon Dioxide 17 L 18 L (22-30) mmol/L BUN 39 H 36 H (7-17) mg/dL Creatinine 2.8 H 2.2 H (0.6-1.2) mg/dL Glucose 1421 H* 1181 H* 896 H* (65-100) mg/dL POC Glucose (70-105) mg/dL Lactic Acid (0.7-2.0) mmol/L Calcium (8.4-10.2) mg/dL Phosphorus (2.5-4.5) mg/dL Magnesium (1.7-2.3) mg/dL Alkaline Phosphatase (35-129) units/L Ammonia (25-60) umol/L Total Creatine Kinase (30-135) units/L Total Protein (6.3-8.2) g/dL Salicylates (2.8-20.0) mg/dL Acetaminophen (10.0-30.0) ug/mL 08/31/21 08/31/21 08/31/21 Range/Units 07:44 08:55 09:58 WBC (4.5-11.0) K/mm3 Hct (30.3-42.9) % MCV (79-97) fl MCH (28-32) pg MCHC (30-34) % RDW (13.2-15.2) % Lymph % (Auto) (13.4-35.0) % [place] % (Auto) (0.0-7.3) % Lymph # (Auto) (1.2-5.4) K/mm3 [place] # (Auto) (0.0-0.8) K/mm3 Seg Neutrophils % (40.0-70.0) % Seg Neutrophils # (1.8-7.7) K/mm3 Sodium (137-145) mmol/L Potassium (3.6-5.0) mmol/L Chloride (98-107) mmol/L Carbon Dioxide (22-30) mmol/L BUN (7-17) mg/dL Creatinine (0.6-1.2) mg/dL Glucose (65-100) mg/dL POC Glucose 553 H 468 H 473 H (70-105) mg/dL Lactic Acid (0.7-2.0) mmol/L Calcium (8.4-10.2) mg/dL Phosphorus (2.5-4.5) mg/dL Magnesium (1.7-2.3) mg/dL Alkaline Phosphatase (35-129) units/L Ammonia (25-60) umol/L Total Creatine Kinase (30-135) units/L Total Protein (6.3-8.2) g/dL Salicylates (2.8-20.0) mg/dL Acetaminophen (10.0-30.0) ug/mL 08/31/21 08/31/21 08/31/21 Range/Units 10:59 Unknown Unknown WBC (4.5-11.0) K/mm3 Hct (30.3-42.9) % MCV (79-97) fl MCH (28-32) pg MCHC (30-34) % RDW (13.2-15.2) % Lymph % (Auto) (13.4-35.0) % [place] % (Auto) (0.0-7.3) % Lymph # (Auto) (1.2-5.4) K/mm3 [place] # (Auto) (0.0-0.8) K/mm3 Seg Neutrophils % (40.0-70.0) % Seg Neutrophils # (1.8-7.7) K/mm3 Sodium 157 H (137-145) mmol/L Potassium (3.6-5.0) mmol/L Chloride 122.7 H (98-107) mmol/L Carbon Dioxide (22-30) mmol/L BUN 32 H (7-17) mg/dL Creatinine 1.7 H (0.6-1.2) mg/dL Glucose 508 H* (65-100) mg/dL POC Glucose 456 H (70-105) mg/dL Lactic Acid 3.10 H* (0.7-2.0) mmol/L Calcium (8.4-10.2) mg/dL Phosphorus (2.5-4.5) mg/dL Magnesium (1.7-2.3) mg/dL Alkaline Phosphatase (35-129) units/L Ammonia (25-60) umol/L Total Creatine Kinase (30-135) units/L Total Protein (6.3-8.2) g/dL Salicylates (2.8-20.0) mg/dL Acetaminophen (10.0-30.0) ug/mL - Imaging and Cardiology Chest x-ray: image reviewed (clear) Assessment and Plan 35 y/o obese female admitted with metabolic encephalopathy and DKA Insulin drip NPO Ok with ativan PRN Continue ICU care CCT 31 minutes.
[2021-08-31] MEDS ORDERED: INSULIN REGULAR, HUMAN 100 UNITS/1 ML IV SCH (14:00)
--- NOTE | 2021-08-31 15:29 | Progress Note ---
Assessment and Plan Assessment and plan: This is a 35-year-old female with hypertension, DM, medical noncompliance and morbid obesity admitted with DKA Neuro: Acute metabolic encephalopathy, h/o medical noncompliance -Avoid delirium -Reorientation as needed -Maintain sleep-wake cycle -CT head on admission showed diffuse cerebral atrophy, no evidence of acute ischemic injury, hemorrhage or mass Cardiac: h/o HTN -Blood pressure monitoring per protocol -Resume home antihypertensive regimen if needed once obtained Respiratory: NAD -Pulmonary hygiene -SPO2 monitoring -Supplemental oxygen as needed GI: h/o morbid obesity -24 hours +111 -PPI -N.p.o. while on insulin drip -Start BR once appropriate -Encourage lifestyle and dietary modifications upon discharge : Hypernatremia, hyperchloremia, high anion gap metabolic acidosis, acute kidney injury -Nephrology consulted, appreciate recommendations -MARITZA likely secondary to vasomotor nephropathy as evidenced by improvement with IVF -Strict intake and output -Renally dose medications -Avoid nephrotoxic medications -Daily weights -Consider further work-up if worsening -Trend BMP ID: SIRs -Presented with leukocytosis, acute kidney injury, lactic acidosis -S/p 5 L bolus -Presents with a lactic acid of 5.1 -Monitor WBC and temperature curve Endo: DKA, h/o DM -CCM consulted, appreciate recommendations -DKA protocol -Accu-Cheks per protocol -BMP per protocol -Avoid hypoglycemia -Give IV 5 units insulin x1 -Hemoglobin A1c pending Heme: Leukocytosis -Trend CBC -Transfuse hemoglobin less than 7 -Monitor for signs of bleeding -Heparin subcu -SCDs to BLE while in bed The high probability of a clinically significant, sudden or life threatening deterioration of the [multi] system(s) required my full and direct attention, intervention and personal management. The aggregate critical care time was [60] minutes. This time is in addition to time spent performing reported procedures but includes the following: [x] Data Review and interpretation [x] Patient assessment and monitoring of vital signs [x] Documentation [x] Medication orders and management Disposition Plan: icu Total Time Spent with Patient (Minutes): 60 History Interval history: This is a 35-year-old female with hypertension, DM, medical noncompliance and morbid obesity who presented to emergency department on 08/30 via EMS who found the patient at her home with urinary incontinence blood sugar via Accu-Chek was read as high after being called by family member who arrived to the house after patient failed to pick it up from school. Arrival to the emergency department patient was in the emergency department patient was found to be tachycardic, tachypneic and had leukocytosis and lactic acidosi and lab work was consistent with DKA. Of note patient's blood glucose on arrival was 1955. Patient was admitted to the hospital service with consult to [facility] for DKA on DKA protocol. 08/31: Patient remains hyperglycemic despite being on over 30 units of insulin, given 10 units IV insulin, maintain on IV fluids of normal saline patient has not met criteria to be switched to dextrose containing IV fluids. Given for LR boluses overnight. Will replete potassium with K-Phos and obtain A1c. Antibiotics stopped. Hospitalist Physical - Constitutional Vitals: Temp Pulse Resp BP Pulse Ox 98.2 F 109 H 22 122/79 96 08/31/21 11:40 08/31/21 12:00 08/30/21 22:00 08/30/21 22:00 08/31/21 12:00 General appearance: Present: mild distress, well-nourished, obese (Morbidly obese with BMI of 44.4) - EENT Eyes: Present: PERRL, EOM intact - Neck Neck: Present: normal ROM - Respiratory Respiratory effort: normal Respiratory: bilateral: diminished - Cardiovascular Rhythm: regular Heart Sounds: Present: S1 & S2. Absent: systolic murmur, diastolic murmur - Extremities Extremities: no ischemia, pulses intact, pulses symmetrical, No edema, normal temperature, normal color, Full ROM Peripheral Pulses: within normal limits - Abdominal General gastrointestinal: soft, non-tender, non-distended, normal bowel sounds - Integumentary Integumentary: Present: warm, dry - Psychiatric Psychiatric: other - Neurologic Neurologic: other (not interactive) - Allied Health Allied health notes reviewed: nursing, RT, social work HEART Score - HEART Score EKG: Normal Age: < 45 Risk factors: 1-2 risk factors Troponin: Troponin T < 0.010 ng/mL (0.00-0.029) 08/30/21 17:40 Troponin: < normal limit - Critical Actions Critical Actions: 0-3 pts:0.9-1.7%risk of adverse cardiac event.Candidate for discharge Results - Labs CBC & Chem 7: 08/30/21 17:40 08/31/21 Unknown Labs: Laboratory Last Values WBC 16.3 K/mm3 (4.5-11.0) H 08/30/21 17:40 RBC 4.79 M/mm3 (3.65-5.03) 08/30/21 17:40 Hgb 12.3 gm/dl (10.1-14.3) 08/30/21 17:40 Hct 48.2 % (30.3-42.9) H 08/30/21 17:40 MCV 101 fl (79-97) H 08/30/21 17:40 MCH 26 pg (28-32) L 08/30/21 17:40 MCHC 26 % (30-34) L 08/30/21 17:40 RDW 18.2 % (13.2-15.2) H 08/30/21 17:40 Plt Count 386 K/mm3 (140-440) 08/30/21 17:40 Lymph % (Auto) 5.9 % (13.4-35.0) L 08/30/21 17:40 Coleman % (Auto) 10.2 % (0.0-7.3) H 08/30/21 17:40 Eos % (Auto) 0.0 % (0.0-4.3) 08/30/21 17:40 Baso % (Auto) 0.3 % (0.0-1.8) 08/30/21 17:40 Lymph # (Auto) 1.0 K/mm3 (1.2-5.4) L 08/30/21 17:40 Coleman # (Auto) 1.7 K/mm3 (0.0-0.8) H 08/30/21 17:40 Eos # (Auto) 0.0 K/mm3 (0.0-0.4) 08/30/21 17:40 Baso # (Auto) 0.0 K/mm3 (0.0-0.1) 08/30/21 17:40 Seg Neutrophils % 83.6 % (40.0-70.0) H 08/30/21 17:40 Seg Neutrophils # 13.6 K/mm3 (1.8-7.7) H 08/30/21 17:40 PT 14.9 Sec. (12.2-14.9) 08/30/21 17:40 INR 1.05 (0.87-1.13) 08/30/21 17:40 Sodium 157 mmol/L (137-145) H 08/31/21 Unknown Potassium 4.2 mmol/L (3.6-5.0) 08/31/21 Unknown Chloride 122.7 mmol/L (98-107) H 08/31/21 Unknown Carbon Dioxide 22 mmol/L (22-30) 08/31/21 Unknown Anion Gap 17 mmol/L 08/31/21 Unknown BUN 32 mg/dL (7-17) H 08/31/21 Unknown Creatinine 1.7 mg/dL (0.6-1.2) H 08/31/21 Unknown Estimated GFR 42 ml/min 08/31/21 Unknown BUN/Creatinine Ratio 19 % 08/31/21 Unknown Glucose 508 mg/dL (65-100) H* 08/31/21 Unknown POC Glucose 350 mg/dL (70-105) H 08/31/21 15:15 Ketones Quantitative Small (Negative) 08/30/21 17:40 Lactic Acid 3.10 mmol/L (0.7-2.0) H* 08/31/21 Unknown Calcium 9.9 mg/dL (8.4-10.2) 08/31/21 Unknown Phosphorus 1.40 mg/dL (2.5-4.5) L D 08/30/21 23:45 Magnesium 3.60 mg/dL (1.7-2.3) H 08/30/21 23:45 Total Bilirubin 0.30 mg/dL (0.1-1.2) 08/30/21 17:40 AST 17 units/L (5-40) 08/30/21 17:40 ALT 30 units/L (7-56) 08/30/21 17:40 Alkaline Phosphatase 274 units/L (35-129) H 08/30/21 17:40 Ammonia 18.0 umol/L (25-60) L 08/30/21 17:40 Total Creatine Kinase 203 units/L (30-135) H 08/30/21 17:40 Troponin T < 0.010 ng/mL (0.00-0.029) 08/30/21 17:40 Total Protein 9.0 g/dL (6.3-8.2) H 08/30/21 17:40 Albumin 4.8 g/dL (3.9-5) 08/30/21 17:40 Albumin/Globulin Ratio 1.1 % 08/30/21 17:40 Urine Color Straw (Yellow) 08/30/21 22:56 Urine Turbidity Clear (Clear) 08/30/21 22:56 Urine pH 6.0 (5.0-7.0) 08/30/21 22:56 Ur Specific [place] 1.029 (1.003-1.030) 08/30/21 22:56 Urine Protein 30 mg/dl mg/dL (Negative) 08/30/21 22:56 Urine Glucose (UA) >=500 mg/dL (Negative) 08/30/21 22:56 Urine Ketones 20 mg/dL (Negative) 08/30/21 22:56 Urine Blood Lg (Negative) 08/30/21 22:56 Urine Nitrite Neg (Negative) 08/30/21 22:56 Urine Bilirubin Neg (Negative) 08/30/21 22: Urine Urobilinogen < 2.0 mg/dL (<2.0) 08/30/21 22:56 Ur Leukocyte Esterase Neg (Negative) 08/30/21 22:56 Urine WBC (Auto) 6.0 /HPF (0.0-6.0) 08/30/21 22:56 Urine RBC (Auto) 14.0 /HPF (0.0-6.0) 08/30/21 22:56 U Epithel Cells (Auto) 1.0 /HPF (0-13.0) 08/30/21 22:56 Urine Mucus Few /HPF 08/30/21 22:56 Urine Yeast (Budding) Few /HPF 08/30/21 22:56 Salicylates < 0.3 mg/dL (2.8-20.0) L 08/30/21 17:40 Urine Opiates Screen Presumptive negative 08/30/21 22:56 Urine Methadone Screen Presumptive negative 08/30/21 22:56 Acetaminophen 5.0 ug/mL (10.0-30.0) L 08/30/21 17:40 Ur Barbiturates Screen Presumptive negative 08/30/21 22:56 Ur Phencyclidine Scrn Presumptive negative 08/30/21 22:56 Ur Amphetamines Screen Presumptive negative 08/30/21 22:56 U Benzodiazepines Scrn Presumptive negative 08/30/21 22:56 Urine Cocaine Screen Presumptive negative 08/30/21 22:56 U Marijuana (THC) Screen Presumptive negative 08/30/21 22:56 Drugs of Abuse Note Disclamer 08/30/21 22:56 Plasma/Serum Alcohol < 0.01 % (0-0.07) 08/30/21 17:40 Myers/IV: Voiding Method Indwelling Catheter Active Medications - Current Medications Current Medications: Generic Name Dose Route Start Last Admin Trade Name Freq PRN Reason Stop Dose Admin Acetaminophen 650 mg 08/30/21 20:51 Acetaminophen 325 Mg Tab PO Q4H PRN Pain MILD(1-3)/Fever >100.5/MUÑOZ Dextrose 0 ml 08/30/21 20:57 Dextrose 50% In Water (25gm) 50 Ml Syringe IV Q30MIN PRN Hypoglycemia Protocol Heparin Sodium (Porcine) 5,000 unit 08/30/21 22:00 08/31/21 10:49 Heparin 5,000 Unit/1 Ml Vial SUB-Q 5,000 unit Q12HR SEAN Administration Hydromorphone HCl 0.5 mg 08/30/21 20:51 Hydromorphone 1 Mg/1 Ml Inj IV Q3H PRN Pain , Severe (7-10) Insulin Human Regular 100 100 mls @ 1 mls/hr 08/30/21 19:00 08/31/21 14:05 units/ Sodium Chloride IV 32 units/hr TITR SEAN 32 mls/hr Titration Protocol 1 UNITS/HR Potassium Chloride/Dextrose/Sod Cl 20 meq in 1,000 mls @ 125 mls/hr 08/30/21 21:00 D5w/0.45% Nacl/Kcl 20 Meq IV DIRECT SEAN Sodium Chloride 1,000 mls @ 125 mls/hr 08/31/21 03:15 08/31/21 04:32 Nacl 0.9% 1000 Ml IV 125 mls/hr DIRECT SEAN Administration Insulin Human Regular 10 units 08/31/21 14:00 Insulin Regular, Human 100 Units/1 Ml IV 08/31/21 17:00 ONCE@1400 SEAN Lorazepam 2 mg 08/30/21 23:28 08/31/21 08:35 Lorazepam 2 Mg/Ml Vial IV 2 mg Q4H PRN Administration Agitation Lorazepam 1 mg 08/30/21 23:29 08/31/21 04:20 Lorazepam 2 Mg/Ml Vial IV 1 mg Q4H PRN Administration Agitation Ondansetron HCl 4 mg 08/30/21 20:51 Ondansetron 4 Mg/2 Ml Inj IV Q8H PRN Nausea And Vomiting Oxycodone/Acetaminophen 1 tab 08/30/21 20:51 Oxycodone /Acetaminophen 5-325mg Tab PO Q6H PRN Pain, Moderate (4-6) Sodium Chloride 10 ml 08/30/21 22:00 08/31/21 10:49 Sodium Chloride 0.9% 10 Ml Flush Syringe IV 10 ml BID SEAN Administration Sodium Chloride 10 ml 08/30/21 20:51 Sodium Chloride 0.9% 10 Ml Flush Syringe IV PRN PRN LINE FLUSH
[2021-08-31] MEDS ORDERED: POTASSIUM PHOSPHATE 40 MMOL in SODIUM CHLORIDE 0.9% 500 ML 500 ML IV ONE (17:00)
[2021-08-31 21:10] LABS: Calcium 8.9 mg/dL (8.4-10.2)
[2021-08-31] MEDS ORDERED: POTASSIUM CHLORIDE 20 MEQ in DEXTROSE 5% IN WATER 1,000 ML IV SCH (22:00)
[2021-09-01] MEDS: LORazepam 2 MG/ML VIAL IV PRN ×5 (01:06→19:58)
[2021-09-01 01:22] LABS: Calcium 8.7 mg/dL (8.4-10.2)
[2021-09-01] MEDS: INSULIN REGULAR, HUMAN 100 UNITS in SODIUM CHLORIDE 0.9% 99 ML IV SCH ×3 (02:18→23:19)
[2021-09-01] MEDS: DEXTROSE 5% IN WATER 1,000 ML IV SCH ×6 (02:20→22:46)
[2021-09-01 05:43] LABS: Albumin 3.6 g/dL (3.9-5); Calcium 8.9 mg/dL (8.4-10.2)
[2021-09-01] MEDS ORDERED: DEXTROSE 10% *Hypoglycemia IV PRN (10:01)
[2021-09-01] MEDS: HEPARIN 5,000 UNIT/1 ML VIAL SUB-Q SCH ×2 (10:45→21:58)
[2021-09-01] MEDS ORDERED: HALOPERIDOL LACTATE 5 MG/1 ML INJ IV SCH (11:00)
--- NOTE | 2021-09-01 11:48 | Progress Note ---
Assessment and Plan 35 y/o obese female admitted with metabolic encephalopathy and DKA Ok to feed patient Change to long acting insulin Can add some PRN haldol in addition to ativan May be ready for transfer tomorrow. Subjective Date of service: 09/01/21 Interval history: Much more alert today. Sad as she wants to go home. Getting agitated but calms down some with ativan. Objective - Constitutional Vitals: Vital Signs - 12hr 09/01/21 09/01/21 09/01/21 00:00 01:11 01:21 Temperature 100.5 F H Pulse Rate 111 H 111 H Pulse Rate [ 110 H From Monitor] Respiratory 45 H 45 H Rate Blood Pressure 146/104 146/104 O2 Sat by Pulse 96 96 97 Oximetry 09/01/21 09/01/21 09/01/21 01:30 01:41 01:51 Temperature Pulse Rate 111 H 113 H 112 H Pulse Rate [ From Monitor] Respiratory 43 H 52 H 42 H Rate Blood Pressure 162/99 162/99 162/99 O2 Sat by Pulse 96 97 97 Oximetry 09/01/21 09/01/21 09/01/21 02:00 02:11 02:21 Temperature Pulse Rate 112 H 112 H 112 H Pulse Rate [ From Monitor] Respiratory 46 H 42 H 44 H Rate Blood Pressure 161/102 161/102 161/102 O2 Sat by Pulse 97 97 97 Oximetry 09/01/21 09/01/21 09/01/21 02:30 02:41 02:51 Temperature Pulse Rate 111 H 111 H 111 H Pulse Rate [ From Monitor] Respiratory 43 H 43 H 41 H Rate Blood Pressure 151/95 151/95 151/95 O2 Sat by Pulse 97 96 96 Oximetry 09/01/21 09/01/21 09/01/21 03:00 03:11 03:21 Temperature Pulse Rate 111 H 112 H 112 H Pulse Rate [ From Monitor] Respiratory 40 H 43 H 42 H Rate Blood Pressure 173/92 167/92 167/92 O2 Sat by Pulse 97 96 96 Oximetry 09/01/21 09/01/21 09/01/21 03:30 03:41 03:51 Temperature Pulse Rate 113 H 111 H 109 H Pulse Rate [ From Monitor] Respiratory 43 H 42 H 46 H Rate Blood Pressure 157/84 157/84 157/84 O2 Sat by Pulse 95 96 97 Oximetry 09/01/21 09/01/21 09/01/21 04:00 04:11 04:21 Temperature 101.2 F H Pulse Rate 107 H 107 H 107 H Pulse Rate [ 110 H From Monitor] Respiratory 43 H 24 42 H Rate Blood Pressure 170/92 170/92 170/92 O2 Sat by Pulse 97 99 97 Oximetry 09/01/21 09/01/21 09/01/21 04:30 04:41 04:51 Temperature Pulse Rate 107 H 107 H 105 H Pulse Rate [ From Monitor] Respiratory 42 H 40 H 45 H Rate Blood Pressure 165/95 165/95 165/95 O2 Sat by Pulse 97 98 98 Oximetry 09/01/21 09/01/21 09/01/21 05:00 05:11 05:21 Temperature Pulse Rate 106 H 106 H 106 H Pulse Rate [ From Monitor] Respiratory 41 H 41 H 41 H Rate Blood Pressure 146/91 146/91 146/91 O2 Sat by Pulse 97 97 97 Oximetry 09/01/21 09/01/21 09/01/21 05:30 05:41 05:51 Temperature Pulse Rate 106 H 106 H 107 H Pulse Rate [ From Monitor] Respiratory 43 H 41 H 54 H Rate Blood Pressure 132/90 132/90 132/90 O2 Sat by Pulse 98 98 97 Oximetry 09/01/21 09/01/21 09/01/21 06:00 06:11 06:21 Temperature Pulse Rate 103 H 104 H 104 H Pulse Rate [ From Monitor] Respiratory 30 H 42 H 41 H Rate Blood Pressure 167/95 167/95 167/95 O2 Sat by Pulse 97 97 97 Oximetry 09/01/21 09/01/21 09/01/21 06:30 06:41 06:51 Temperature Pulse Rate 103 H 104 H 104 H Pulse Rate [ From Monitor] Respiratory 40 H 41 H 41 H Rate Blood Pressure 140/102 140/102 140/102 O2 Sat by Pulse 98 98 97 Oximetry 09/01/21 09/01/21 09/01/21 07:00 07:11 07:14 Temperature 100.0 F H Pulse Rate 102 H 101 H Pulse Rate [ From Monitor] Respiratory 44 H 42 H Rate Blood Pressure 143/95 143/95 O2 Sat by Pulse 97 97 Oximetry 09/01/21 09/01/21 09/01/21 07:21 07:30 07:41 Temperature Pulse Rate 101 H 101 H 102 H Pulse Rate [ From Monitor] Respiratory 39 H 39 H 37 H Rate Blood Pressure 143/95 155/86 155/86 O2 Sat by Pulse 97 97 98 Oximetry 09/01/21 09/01/21 09/01/21 07:51 08:00 08:11 Temperature Pulse Rate 102 H 102 H 101 H Pulse Rate [ 99 H From Monitor] Respiratory 37 H 36 H 34 H Rate Blood Pressure 155/86 168/92 168/92 O2 Sat by Pulse 96 95 97 Oximetry 09/01/21 09/01/21 09/01/21 08:21 08:30 08:41 Temperature Pulse Rate 101 H 101 H 100 H Pulse Rate [ From Monitor] Respiratory 38 H 40 H 41 H Rate Blood Pressure 168/92 183/99 183/99 O2 Sat by Pulse 97 98 97 Oximetry 09/01/21 09/01/21 09/01/21 08:51 09:00 09:11 Temperature Pulse Rate 100 H 100 H 98 H Pulse Rate [ From Monitor] Respiratory 38 H 38 H 38 H Rate Blood Pressure 183/99 179/88 179/88 O2 Sat by Pulse 97 97 96 Oximetry 09/01/21 09/01/21 09/01/21 09:21 09:30 09:41 Temperature Pulse Rate 99 H 99 H 99 H Pulse Rate [ From Monitor] Respiratory 37 H 39 H 38 H Rate Blood Pressure 179/88 156/98 156/98 O2 Sat by Pulse 97 97 98 Oximetry 09/01/21 09/01/21 09/01/21 09:51 10:00 10:11 Temperature Pulse Rate 101 H 99 H 101 H Pulse Rate [ From Monitor] Respiratory 33 H 52 H 24 Rate Blood Pressure 156/98 153/99 153/99 O2 Sat by Pulse 98 96 97 Oximetry 09/01/21 09/01/21 09/01/21 10:21 10:30 10:41 Temperature Pulse Rate 104 H 104 H 103 H Pulse Rate [ From Monitor] Respiratory 15 43 H 50 H Rate Blood Pressure 153/99 176/111 176/111 O2 Sat by Pulse 98 98 97 Oximetry 09/01/21 09/01/21 09/01/21 10:51 11:01 11:11 Temperature Pulse Rate 105 H 102 H 101 H Pulse Rate [ From Monitor] Respiratory 41 H 20 33 H Rate Blood Pressure 176/111 176/111 162/91 O2 Sat by Pulse 99 97 97 Oximetry 09/01/21 09/01/21 11:21 11:30 Temperature Pulse Rate 101 H 99 H Pulse Rate [ From Monitor] Respiratory 16 23 Rate Blood Pressure 162/91 187/102 O2 Sat by Pulse 97 97 Oximetry - Labs CBC & Chem 7: 09/03/21 04:25 09/03/21 04:25 Labs: Abnormal lab results 08/31/21 08/31/21 08/31/21 Range/Units 12:05 13:08 13:57 Sodium (137-145) mmol/L Chloride (98-107) mmol/L Carbon Dioxide (22-30) mmol/L BUN (7-17) mg/dL Creatinine (0.6-1.2) mg/dL Glucose (65-100) mg/dL POC Glucose 517 H 437 H 447 H (70-105) mg/dL Hemoglobin A1c (4-6) % Lactic Acid (0.7-2.0) mmol/L Phosphorus (2.5-4.5) mg/dL Alkaline Phosphatase (35-129) units/L Albumin (3.9-5) g/dL 08/31/21 08/31/21 08/31/21 Range/Units 15:15 15:52 17:09 Sodium (137-145) mmol/L Chloride (98-107) mmol/L Carbon Dioxide (22-30) mmol/L BUN (7-17) mg/dL Creatinine (0.6-1.2) mg/dL Glucose (65-100) mg/dL POC Glucose 350 H 325 H 278 H (70-105) mg/dL Hemoglobin A1c (4-6) % Lactic Acid (0.7-2.0) mmol/L Phosphorus (2.5-4.5) mg/dL Alkaline Phosphatase (35-129) units/L Albumin (3.9-5) g/dL 08/31/21 08/31/21 08/31/21 Range/Units 18:08 19:09 19:52 Sodium (137-145) mmol/L Chloride (98-107) mmol/L Carbon Dioxide (22-30) mmol/L BUN (7-17) mg/dL Creatinine (0.6-1.2) mg/dL Glucose (65-100) mg/dL POC Glucose 233 H 162 H 137 H (70-105) mg/dL Hemoglobin A1c (4-6) % Lactic Acid (0.7-2.0) mmol/L Phosphorus (2.5-4.5) mg/dL Alkaline Phosphatase (35-129) units/L Albumin (3.9-5) g/dL 08/31/21 08/31/21 08/31/21 Range/Units 20:44 20:45 20:51 Sodium 165 H* D (137-145) mmol/L Chloride 130.9 H (98-107) mmol/L Carbon Dioxide 20 L (22-30) mmol/L BUN 28 H (7-17) mg/dL Creatinine 1.7 H (0.6-1.2) mg/dL Glucose 139 H (65-100) mg/dL POC Glucose 129 H 136 H (70-105) mg/dL Hemoglobin A1c (4-6) % Lactic Acid (0.7-2.0) mmol/L Phosphorus (2.5-4.5) mg/dL Alkaline Phosphatase (35-129) units/L Albumin (3.9-5) g/dL 08/31/21 08/31/21 08/31/21 Range/Units 21:54 Unknown Unknown Sodium (137-145) mmol/L Chloride (98-107) mmol/L Carbon Dioxide (22-30) mmol/L BUN (7-17) mg/dL Creatinine (0.6-1.2) mg/dL Glucose 508 H* (65-100) mg/dL POC Glucose 115 H (70-105) mg/dL Hemoglobin A1c (4-6) % Lactic Acid 3.10 H* (0.7-2.0) mmol/L Phosphorus (2.5-4.5) mg/dL Alkaline Phosphatase (35-129) units/L Albumin (3.9-5) g/dL 08/31/21 09/01/21 09/01/21 Range/Units Unknown 00:56 03:42 Sodium 167 H* (137-145) mmol/L Chloride 131.4 H (98-107) mmol/L Carbon Dioxide 20 L (22-30) mmol/L BUN 28 H (7-17) mg/dL Creatinine 1.8 H (0.6-1.2) mg/dL Glucose (65-100) mg/dL POC Glucose 116 H (70-105) mg/dL Hemoglobin A1c (4-6) % Lactic Acid (0.7-2.0) mmol/L Phosphorus 1.20 L (2.5-4.5) mg/dL Alkaline Phosphatase (35-129) units/L Albumin (3.9-5) g/dL 09/01/21 09/01/21 09/01/21 Range/Units 04:24 04:24 04:24 Sodium 163 H* (137-145) mmol/L Chloride 127.9 H (98-107) mmol/L Carbon Dioxide (22-30) mmol/L BUN 28 H (7-17) mg/dL Creatinine 1.8 H (0.6-1.2) mg/dL Glucose 153 H (65-100) mg/dL POC Glucose (70-105) mg/dL Hemoglobin A1c 13.1 H (4-6) % Lactic Acid 2.40 H* (0.7-2.0) mmol/L Phosphorus 2.40 L D (2.5-4.5) mg/dL Alkaline Phosphatase 145 H (35-129) units/L Albumin 3.6 L (3.9-5) g/dL 09/01/21 09/01/21 09/01/21 Range/Units 05:12 06:35 07:42 Sodium (137-145) mmol/L Chloride (98-107) mmol/L Carbon Dioxide (22-30) mmol/L BUN (7-17) mg/dL Creatinine (0.6-1.2) mg/dL Glucose (65-100) mg/dL POC Glucose 172 H 175 H 144 H (70-105) mg/dL Hemoglobin A1c (4-6) % Lactic Acid (0.7-2.0) mmol/L Phosphorus (2.5-4.5) mg/dL Alkaline Phosphatase (35-129) units/L Albumin (3.9-5) g/dL 09/01/21 Range/Units 10:28 Sodium (137-145) mmol/L Chloride (98-107) mmol/L Carbon Dioxide (22-30) mmol/L BUN (7-17) mg/dL Creatinine (0.6-1.2) mg/dL Glucose (65-100) mg/dL POC Glucose 135 H (70-105) mg/dL Hemoglobin A1c (4-6) % Lactic Acid (0.7-2.0) mmol/L Phosphorus (2.5-4.5) mg/dL Alkaline Phosphatase (35-129) units/L Albumin (3.9-5) g/dL Medications & Allergies - Medications Allergies/Adverse Reactions: Allergies No Known Allergies Allergy (Verified 08/30/21 17:10) Active Medications: Generic Name Dose Route Start Last Admin Trade Name Freq PRN Reason Stop Dose Admin Acetaminophen 650 mg 08/30/21 20:51 09/01/21 04:13 Acetaminophen 325 Mg Tab PO 650 mg Q4H PRN Administration Pain MILD(1-3)/Fever >100.5/MUÑOZ Dextrose 0 ml 09/01/21 10:01 Dextrose 10% *Hypoglycemia IV PRN PRN Hypoglycemia Haloperidol Lactate 5 mg 09/01/21 11:00 Haloperidol Lactate 5 Mg/1 Ml Inj IV 09/01/21 16:00 ONCE@1100 SEAN Heparin Sodium (Porcine) 5,000 unit 08/30/21 22:00 09/01/21 10:45 Heparin 5,000 Unit/1 Ml Vial SUB-Q 5,000 unit Q12HR SEAN Administration Hydromorphone HCl 0.5 mg 08/30/21 20:51 Hydromorphone 1 Mg/1 Ml Inj IV Q3H PRN Pain , Severe (7-10) Insulin Human Regular 100 100 mls @ 1 mls/hr 08/30/21 19:00 09/01/21 08:00 units/ Sodium Chloride IV 10 units/hr TITR SEAN 10 mls/hr Titration Protocol 1 UNITS/HR Sodium Chloride 1,000 mls @ 125 mls/hr 08/31/21 03:15 08/31/21 19:19 Nacl 0.9% 1000 Ml IV 0 mls/hr DIRECT SEAN Infusion Dextrose 1,000 mls @ 250 mls/hr 09/01/21 03:00 09/01/21 11:25 D5w IV 250 mls/hr DIRECT SEAN Administration Labetalol HCl 10 mg 09/01/21 09:29 Labetalol 20 Mg/4 Ml Inj IV Q6HR PRN Hypertension Lorazepam 2 mg 08/30/21 23:28 09/01/21 10:15 Lorazepam 2 Mg/Ml Vial IV 2 mg Q4H PRN Administration Agitation Lorazepam 1 mg 08/30/21 23:29 08/31/21 04:20 Lorazepam 2 Mg/Ml Vial IV 1 mg Q4H PRN Administration Agitation Ondansetron HCl 4 mg 08/30/21 20:51 Ondansetron 4 Mg/2 Ml Inj IV Q8H PRN Nausea And Vomiting Oxycodone/Acetaminophen 1 tab 08/30/21 20:51 Oxycodone /Acetaminophen 5-325mg Tab PO Q6H PRN Pain, Moderate (4-6) Sodium Chloride 10 ml 08/30/21 22:00 09/01/21 11:26 Sodium Chloride 0.9% 10 Ml Flush Syringe IV 10 ml BID SEAN Administration Sodium Chloride 10 ml 08/30/21 20:51 Sodium Chloride 0.9% 10 Ml Flush Syringe IV PRN PRN LINE FLUSH HEART Score - HEART Score EKG: Normal Age: < 45 Risk factors: 1-2 risk factors Troponin: Troponin T < 0.010 ng/mL (0.00-0.029) 08/30/21 17:40 Troponin: < normal limit - Critical Actions Critical Actions: 0-3 pts:0.9-1.7%risk of adverse cardiac event.Candidate for discharge
--- NOTE | 2021-09-01 13:35 | Progress Note ---
Assessment and Plan Assessment and plan: This is a 35-year-old female with hypertension, DM, medical noncompliance and morbid obesity admitted with DKA Neuro: Acute metabolic encephalopathy, h/o medical noncompliance -Avoid delirium -Reorientation as needed -Maintain sleep-wake cycle -CT head on admission showed diffuse cerebral atrophy, no evidence of acute ischemic injury, hemorrhage or mass Cardiac: h/o HTN -Blood pressure monitoring per protocol -Started on PO BB - no ACEi or ARB in setting of acute renal failure Respiratory: NAD -Pulmonary hygiene -SPO2 monitoring -Supplemental oxygen as needed GI: h/o morbid obesity -24 hours +477 -PPI -N.p.o. while on insulin drip -Start BR once appropriate -Encourage lifestyle and dietary modifications upon discharge : Hypernatremia, hyperchloremia, high anion gap metabolic acidosis, acute kidney injury, hypophosphatemia -MARITZA likely secondary to vasomotor nephropathy as evidenced by improvement with IVF -Strict intake and output -Renally dose medications -Avoid nephrotoxic medications -Daily weights -Consider further work-up if worsening -Replete phosphate -Urine lites pending -Trend BMP ID: SIRs, lactic acidosis -Presented with leukocytosis, acute kidney injury, lactic acidosis -S/p 5 L bolus -Presents with a lactic acid of 5.1 -Monitor WBC and temperature curve Endo: DKA, h/o DM -CCM consulted, appreciate recommendations -DKA protocol -Accu-Cheks per protocol -BMP per protocol -Avoid hypoglycemia -Give IV 5 units insulin x1 -Hemoglobin A1c 13.1 Heme: Leukocytosis, r/o DVT -Trend CBC -Transfuse hemoglobin less than 7 -Monitor for signs of bleeding -Heparin subcu -SCDs to BLE while in bed -right UE tight -obtain dopplar US The high probability of a clinically significant, sudden or life threatening deterioration of the [multi] system(s) required my full and direct attention, intervention and personal management. The aggregate critical care time was [60] minutes. This time is in addition to time spent performing reported procedures but includes the following: [x] Data Review and interpretation [x] Patient assessment and monitoring of vital signs [x] Documentation [x] Medication orders and management Disposition Plan: icu Total Time Spent with Patient (Minutes): 60 History Interval history: This is a 35-year-old female with hypertension, DM, medical noncompliance and morbid obesity who presented to emergency department on 08/30 via EMS who found the patient at her home with urinary incontinence blood sugar via Accu-Chek was read as high after being called by family member who arrived to the house after patient failed to pick it up from school. Arrival to the emergency department patient was in the emergency department patient was found to be tachycardic, tachypneic and had leukocytosis and lactic acidosi and lab work was consistent with DKA. Of note patient's blood glucose on arrival was 1955. Patient was admitted to the hospital service with consult to [facility] for DKA on DKA protocol. 08/31: Patient remains hyperglycemic despite being on over 30 units of insulin, given 10 units IV insulin, maintain on IV fluids of normal saline patient has not met criteria to be switched to dextrose containing IV fluids. Given for LR boluses overnight. Will replete potassium with K-Phos and obtain A1c. Antibiotics stopped. 09/01: remains on insulin gtt, replete phos again today, neuro status better. Hospitalist Physical - Constitutional Vitals: Temp Pulse Resp BP Pulse Ox 100.0 F H 102 H 25 H 181/94 99 09/01/21 07:14 09/01/21 13:11 09/01/21 13:11 09/01/21 13:11 09/01/21 13:11 General appearance: Present: no acute distress, well-nourished, obese (Morbidly obese with BMI of 44.4) - EENT Eyes: Present: PERRL, EOM intact ENT: hearing intact, clear oral mucosa, dentition normal - Neck Neck: Present: normal ROM - Respiratory Respiratory effort: normal Respiratory: bilateral: diminished - Cardiovascular Rhythm: regular Heart Sounds: Present: S1 & S2. Absent: systolic murmur, diastolic murmur - Extremities Extremities: no ischemia, pulses intact, pulses symmetrical, No edema, normal temperature, normal color Peripheral Pulses: within normal limits - Abdominal General gastrointestinal: soft, non-tender, non-distended, normal bowel sounds - Integumentary Integumentary: Present: warm, dry - Psychiatric Psychiatric: cooperative - Neurologic Neurologic: CNII-XII intact, no focal deficits, moves all extremities - Allied Health Allied health notes reviewed: nursing, RT, social work HEART Score - HEART Score EKG: Normal Age: < 45 Risk factors: 1-2 risk factors Troponin: Troponin T < 0.010 ng/mL (0.00-0.029) 08/30/21 17:40 Troponin: < normal limit - Critical Actions Critical Actions: 0-3 pts:0.9-1.7%risk of adverse cardiac event.Candidate for discharge Results - Labs CBC & Chem 7: 09/01/21 16:00 09/01/21 04:24 Labs: Laboratory Last Values WBC 16.3 K/mm3 (4.5-11.0) H 08/30/21 17:40 RBC 4.79 M/mm3 (3.65-5.03) 08/30/21 17:40 Hgb 12.3 gm/dl (10.1-14.3) 08/30/21 17:40 Hct 48.2 % (30.3-42.9) H 08/30/21 17:40 MCV 101 fl (79-97) H 08/30/21 17:40 MCH 26 pg (28-32) L 08/30/21 17:40 MCHC 26 % (30-34) L 08/30/21 17:40 RDW 18.2 % (13.2-15.2) H 08/30/21 17:40 Plt Count 386 K/mm3 (140-440) 08/30/21 17:40 Lymph % (Auto) 5.9 % (13.4-35.0) L 08/30/21 17:40 [place] % (Auto) 10.2 % (0.0-7.3) H 08/30/21 17:40 Eos % (Auto) 0.0 % (0.0-4.3) 08/30/21 17:40 Baso % (Auto) 0.3 % (0.0-1.8) 08/30/21 17:40 Lymph # (Auto) 1.0 K/mm3 (1.2-5.4) L 08/30/21 17:40 [place] # (Auto) 1.7 K/mm3 (0.0-0.8) H 08/30/21 17:40 Eos # (Auto) 0.0 K/mm3 (0.0-0.4) 08/30/21 17:40 Baso # (Auto) 0.0 K/mm3 (0.0-0.1) 08/30/21 17:40 Seg Neutrophils % 83.6 % (40.0-70.0) H 08/30/21 17:40 Seg Neutrophils # 13.6 K/mm3 (1.8-7.7) H 08/30/21 17:40 PT 14.9 Sec. (12.2-14.9) 08/30/21 17:40 INR 1.05 (0.87-1.13) 08/30/21 17:40 Sodium 163 mmol/L (137-145) H* 09/01/21 04:24 Potassium 3.9 mmol/L (3.6-5.0) 09/01/21 04:24 Chloride 127.9 mmol/L (98-107) H 09/01/21 04:24 Carbon Dioxide 22 mmol/L (22-30) 09/01/21 04:24 Anion Gap 17 mmol/L 09/01/21 04:24 BUN 28 mg/dL (7-17) H 09/01/21 04:24 Creatinine 1.8 mg/dL (0.6-1.2) H 09/01/21 04:24 Estimated GFR 39 ml/min 09/01/21 04:24 BUN/Creatinine Ratio 16 % 09/01/21 04:24 Glucose 153 mg/dL (65-100) H 09/01/21 04:24 POC Glucose 133 mg/dL (70-105) H 09/01/21 12:06 Hemoglobin A1c 13.1 % (4-6) H 09/01/21 04:24 Ketones Quantitative Small (Negative) 08/30/21 17:40 Lactic Acid 2.40 mmol/L (0.7-2.0) H* 09/01/21 04:24 Calcium 8.9 mg/dL (8.4-10.2) 09/01/21 04:24 Phosphorus 2.40 mg/dL (2.5-4.5) L D 09/01/21 04:24 Magnesium 2.20 mg/dL (1.7-2.3) 09/01/21 04:24 Total Bilirubin 0.20 mg/dL (0.1-1.2) 09/01/21 04:24 AST 37 units/L (5-40) 09/01/21 04:24 ALT 26 units/L (7-56) 09/01/21 04:24 Alkaline Phosphatase 145 units/L (35-129) H 09/01/21 04:24 Ammonia 18.0 umol/L (25-60) L 08/30/21 17:40 Total Creatine Kinase 203 units/L (30-135) H 08/30/21 17:40 Troponin T < 0.010 ng/mL (0.00-0.029) 08/30/21 17:40 Total Protein 7.1 g/dL (6.3-8.2) D 09/01/21 04:24 Albumin 3.6 g/dL (3.9-5) L 09/01/21 04:24 Albumin/Globulin Ratio 1.0 % 09/01/21 04:24 Urine Color Straw (Yellow) 08/30/21 22:56 Urine Turbidity Clear (Clear) 08/30/21 22:56 Urine pH 6.0 (5.0-7.0) 08/30/21 22:56 Ur Specific [place] 1.029 (1.003-1.030) 08/30/21 22:56 Urine Protein 30 mg/dl mg/dL (Negative) 08/30/21 22:56 Urine Glucose (UA) >=500 mg/dL (Negative) 08/30/21 22:56 Urine Ketones 20 mg/dL (Negative) 08/30/21 22:56 Urine Blood Lg (Negative) 08/30/21 22:56 Urine Nitrite Neg (Negative) 08/30/21 22:56 Urine Bilirubin Neg (Negative) 08/30/21 22:56 Urine Urobilinogen < 2.0 mg/dL (<2.0) 08/30/21 22:56 Ur Leukocyte Esterase Neg (Negative) 08/30/21 22:56 Urine WBC (Auto) 6.0 /HPF (0.0-6.0) 08/30/21 22:56 Urine RBC (Auto) 14.0 /HPF (0.0-6.0) 08/30/21 22:56 U Epithel Cells (Auto) 1.0 /HPF (0-13.0) 08/30/21 22:56 Urine Mucus Few /HPF 08/30/21 22:56 Urine Yeast (Budding) Few /HPF 08/30/21 22:56 Salicylates < 0.3 mg/dL (2.8-20.0) L 08/30/21 17:40 Urine Opiates Screen Presumptive negative 08/30/21 22:56 Urine Methadone Screen Presumptive negative 08/30/21 22:56 Acetaminophen 5.0 ug/mL (10.0-30.0) L 08/30/21 17:40 Ur Barbiturates Screen Presumptive negative 08/30/21 22:56 Ur Phencyclidine Scrn Presumptive negative 08/30/21 22:56 Ur Amphetamines Screen Presumptive negative 08/30/21 22:56 U Benzodiazepines Scrn Presumptive negative 08/30/21 22:56 Urine Cocaine Screen Presumptive negative 08/30/21 22:56 U Marijuana (THC) Screen Presumptive negative 08/30/21 22:56 Drugs of Abuse Note Disclamer 08/30/21 22:56 Plasma/Serum Alcohol < 0.01 % (0-0.07) 08/30/21 17:40 Myers/IV: Voiding Method Indwelling Catheter Active Medications - Current Medications Current Medications: Generic Name Dose Route Start Last Admin Trade Name Freq PRN Reason Stop Dose Admin Acetaminophen 650 mg 08/30/21 20:51 09/01/21 04:13 Acetaminophen 325 Mg Tab PO 650 mg Q4H PRN Administration Pain MILD(1-3)/Fever >100.5/MUÑOZ Dextrose 0 ml 09/01/21 10:01 Dextrose 10% *Hypoglycemia IV PRN PRN Hypoglycemia Haloperidol Lactate 5 mg 09/01/21 11:00 09/01/21 13:16 Haloperidol Lactate 5 Mg/1 Ml Inj IV 09/01/21 16:00 5 mg ONCE@1100 SEAN Administration Heparin Sodium (Porcine) 5,000 unit 08/30/21 22:00 09/01/21 10:45 Heparin 5,000 Unit/1 Ml Vial SUB-Q 5,000 unit Q12HR SEAN Administration Hydromorphone HCl 0.5 mg 08/30/21 20:51 Hydromorphone 1 Mg/1 Ml Inj IV Q3H PRN Pain , Severe (7-10) Insulin Human Regular 100 100 mls @ 1 mls/hr 08/30/21 19:00 09/01/21 08:00 units/ Sodium Chloride IV 10 units/hr TITR SEAN 10 mls/hr Titration Protocol 1 UNITS/HR Sodium Chloride 1,000 mls @ 125 mls/hr 08/31/21 03:15 08/31/21 19:19 Nacl 0.9% 1000 Ml IV 0 mls/hr DIRECT SEAN Infusion Dextrose 1,000 mls @ 250 mls/hr 09/01/21 03:00 09/01/21 11:25 D5w IV 250 mls/hr DIRECT SEAN Administration Labetalol HCl 10 mg 09/01/21 09:29 Labetalol 20 Mg/4 Ml Inj IV Q6HR PRN Hypertension Lorazepam 2 mg 08/30/21 23:28 09/01/21 10:15 Lorazepam 2 Mg/Ml Vial IV 2 mg Q4H PRN Administration Agitation Lorazepam 1 mg 08/30/21 23:29 08/31/21 04:20 Lorazepam 2 Mg/Ml Vial IV 1 mg Q4H PRN Administration Agitation Ondansetron HCl 4 mg 08/30/21 20:51 Ondansetron 4 Mg/2 Ml Inj IV Q8H PRN Nausea And Vomiting Oxycodone/Acetaminophen 1 tab 08/30/21 20:51 Oxycodone /Acetaminophen 5-325mg Tab PO Q6H PRN Pain, Moderate (4-6) Sodium Chloride 10 ml 08/30/21 22:00 09/01/21 11:26 Sodium Chloride 0.9% 10 Ml Flush Syringe IV 10 ml BID SEAN Administration Sodium Chloride 10 ml 08/30/21 20:51 Sodium Chloride 0.9% 10 Ml Flush Syringe IV PRN PRN LINE FLUSH Nutrition/Malnutrition Assess - Dietary Evaluation Nutrition/Malnutrition Findings: Nutrition Notes Start: 08/31/21 16:01 Freq: Status: Active Protocol: Document 08/31/21 16:01 VIVIAN (Rec: 08/31/21 16:09 VIVIAN [id number]) Nutrition Notes Need for Assessment generated from: MD Order,Education Initial or Follow up Brief Note Current Diagnosis Acute Kidney Injury,Diabetes, Hypertension Other Pertinent Diagnosis Metabolic Encelophathy & Acidosis, SIRS, Pneumonia, Hyponatremia. Current Diet NPO (since 08/30 20:52). 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 Weight Status Morbidly Obese Subjective/Other Information RD consult for Nutrition Education. Pt currently on NPO. Pt still on critical conditions, not a candidate for Nutrition Education at the time, will assess feasibility on F/U. Percent of energy/protein needs met: Pt currently on NPO. Nutrition Intervention Follow-Up By: 09/07/21 Additional Comments Nutrition education will be provided on F/U, if feasible. When pertinent, monitor food tolerance, %PO intake of meals , and BM.
[2021-09-01] MEDS ORDERED: POTASSIUM PHOSPHATE 15 MMOL in SODIUM CHLORIDE 0.9% 250ML 250 ML IV ONE (15:00)
[2021-09-01 16:18] LABS: Hematocrit 33.8 % (30.3-42.9); Hemoglobin 10.3 gm/dl (10.1-14.3); Mean Corpuscular HGB Conc 31 % (30-34); Mean Corpuscular Volume 82 fl (79-97); Platelet Count 163 K/mm3 (140-440); Red Blood Count 4.11 M/mm3 (3.65-5.03); Red Cell Distribution Width 17.5 % (13.2-15.2)
[2021-09-01 16:50] LABS: Calcium 8.1 mg/dL (8.4-10.2)
--- NOTE | 2021-09-01 18:16 | Vascular Lab Report ---
DUPLEX DOPPLER UPPER EXTREMITY VENOUS, BILATERAL INDICATION / CLINICAL INFORMATION: r/o dvt. Bilateral arm swelling TECHNIQUE: Duplex doppler imaging was performed through the veins of the right and left upper extremity using ve nous compression and other maneuvers. COMPARISON: None available. FINDINGS: RIGHT INTERNAL JUGULAR VEIN: Negative. RIGHT SUBCLAVIAN VEIN: Negative. RIGHT AXILLARY VEIN: Negative. RIGHT BRACHIAL VEIN: Negative. RIGHT FOREARM VEINS: Negative. RIGHT BASILIC VEIN (SUPERFICIAL): Negative. LEFT INTERNAL JUGULAR VEIN: Negative. LEFT SUBCLAVIAN VEIN: Negative. LEFT AXILLARY VEIN: Negative. LEFT BRACHIAL VEIN: Negative. LEFT FOREARM VEINS: Negative. LEFT BASILIC VEIN (SUPERFICIAL): Negative. ADDITIONAL FINDINGS: Thrombophlebitis with clot in both cephalic veins. IMPRESSION: 1. No sonographic evidence for DVT in the right or left upper extremity. 2. Bilateral cephalic vein superficial thrombophlebitis Signer Name: Vicente Justice MD Signed: 09/01/2021 6:12 PM Workstation Name: [id number]
[2021-09-01 18:49] LABS: Creatinine,Urine 136.6 mg/dL (0.1-20.0)
[2021-09-02] MEDS: LORazepam 2 MG/ML VIAL IV PRN ×4 (00:46→19:50)
[2021-09-02] MEDS: DEXTROSE 5% IN WATER 1,000 ML IV SCH ×2 (05:41→09:57)
[2021-09-02 05:48] LABS: BUN/Creatinine Ratio 14; Blood Urea Nitrogen 15 mg/dL (7-17); Calcium 7.4 mg/dL (8.4-10.2); Hemolysis Index 19
[2021-09-02] MEDS ORDERED: LACTATED RINGERS 1,000 ML IV ONE ×2 (08:00→09:00)
[2021-09-02] MEDS: INSULIN REGULAR, HUMAN 100 UNITS in SODIUM CHLORIDE 0.9% 99 ML IV SCH (08:25)
[2021-09-02] MEDS: POTASSIUM CHLORIDE 10 MEQ 10 MEQ/100 ML BAG IV SCH ×4 (09:02→12:08)
[2021-09-02] MEDS: HEPARIN 5,000 UNIT/1 ML VIAL SUB-Q SCH ×2 (09:05→21:40)
[2021-09-02 12:49] LABS: BUN/Creatinine Ratio 13; Blood Urea Nitrogen 12 mg/dL (7-17); Calcium 7.3 mg/dL (8.4-10.2); Hemolysis Index 49
[2021-09-02] MEDS: INSULIN REGULAR, HUMAN 100 UNITS/1 ML SUB-Q SCH ×4 (13:21→21:39)
[2021-09-02] MEDS ORDERED: INSULIN GLARGINE 100 UNITS/ML SUB-Q SCH ×2 (13:30→22:00)
--- NOTE | 2021-09-02 15:45 | Progress Note ---
<LAUREN BERGMAN - Last Filed: 09/02/21 15:52> Assessment and Plan Assessment and plan: This is a 35-year-old female with hypertension, DM, medical noncompliance and morbid obesity admitted with DKA Neuro: Acute metabolic encephalopathy (resolved), h/o medical noncompliance -Avoid delirium -Reorientation as needed -Maintain sleep-wake cycle -CT head on admission showed diffuse cerebral atrophy, no evidence of acute ischemic injury, hemorrhage or mass Cardiac: h/o HTN -Blood pressure monitoring per protocol -As needed IV labetalol -Start p.o. beta-kira in the a.m. Respiratory: NAD -Pulmonary hygiene -SPO2 monitoring -Supplemental oxygen as needed GI: h/o morbid obesity -24 hours + [id number] -PPI -N.p.o. while on insulin drip -Start BR once appropriate -Encourage lifestyle and dietary modifications upon discharge : Hypernatremia, hyperchloremia, acute kidney injury (resolved) -MARITZA likely secondary to vasomotor nephropathy as evidenced by improvement with IVF -Strict intake and output -Renally dose medications -Avoid nephrotoxic medications -Daily weights -Consider further work-up if worsening -Replete phosphate -FeNa 0.3% -Trend BMP ID: SIRs, lactic acidosis -Presented with leukocytosis, acute kidney injury, lactic acidosis -S/p 5 L bolus -Presents with a lactic acid of 5.1 -Monitor WBC and temperature curve Endo: DKA, h/o DM -CCM consulted, appreciate recommendations -s/p insulin gtt -Accu-Cheks ACHS -Avoid hypoglycemia -SSI -Long acting insulin, titrate as needed -Hemoglobin A1c 13.1 Heme: Leukocytosis, r/o DVT -Trend CBC -Transfuse hemoglobin less than 7 -Monitor for signs of bleeding -Heparin subcu -SCDs to BLE while in bed -right UE tight -RUE dopplar US shows SVT in cephalic vein The high probability of a clinically significant, sudden or life threatening deterioration of the [multi] system(s) required my full and direct attention, intervention and personal management. The aggregate critical care time was [60] minutes. This time is in addition to time spent performing reported procedures but includes the following: [x] Data Review and interpretation [x] Patient assessment and monitoring of vital signs [x] Documentation [x] Medication orders and management Disposition Plan: icu Total Time Spent with Patient (Minutes): 60 History Interval history: This is a 35-year-old female with hypertension, DM, medical noncompliance and morbid obesity who presented to emergency department on 08/30 via EMS who found the patient at her home with urinary incontinence blood sugar via Accu-Chek was read as high after being called by family member who arrived to the house after patient failed to pick it up from school. Arrival to the emergency department patient was in the emergency department patient was found to be tachycardic, tachypneic and had leukocytosis and lactic acidosi and lab work was consistent with DKA. Of note patient's blood glucose on arrival was 1955. Patient was admitted to the hospital service with consult to CCM for DKA on DKA protocol. 08/31: Patient remains hyperglycemic despite being on over 30 units of insulin, given 10 units IV insulin, maintain on IV fluids of normal saline patient has not met criteria to be switched to dextrose containing IV fluids. Given for LR boluses overnight. Will replete potassium with K-Phos and obtain A1c. Antibiotics stopped. 09/01: remains on insulin gtt, replete phos again today, neuro status better. 09/02: Patient was transitioned off insulin drip to SSI, long-acting insulin and started on a CC diet. Hyponatremia improving. Potassium repleted. Given to LR bolus. Hospitalist Physical - Constitutional Vitals: Temp Pulse Resp BP Pulse Ox 99.1 F 93 H 46 H 141/78 100 09/02/21 15:24 09/02/21 15:01 09/02/21 15:01 09/02/21 15:01 09/02/21 15:01 General appearance: Present: no acute distress, well-nourished, obese (Morbidly obese with BMI of 44.4) - EENT Eyes: Present: PERRL, EOM intact ENT: hearing intact, clear oral mucosa, dentition normal - Neck Neck: Present: normal ROM - Respiratory Respiratory effort: normal Respiratory: bilateral: diminished - Cardiovascular Rhythm: regular Heart Sounds: Present: S1 & S2. Absent: systolic murmur, diastolic murmur - Extremities Extremities: no ischemia, pulses intact, pulses symmetrical, No edema, normal temperature, normal color Peripheral Pulses: within normal limits - Abdominal General gastrointestinal: soft, non-tender, normal bowel sounds - Integumentary Integumentary: Present: warm, dry - Psychiatric Psychiatric: cooperative - Neurologic Neurologic: CNII-XII intact, no focal deficits, moves all extremities - Allied Health Allied health notes reviewed: nursing, RT, social work HEART Score - HEART Score EKG: Normal Age: < 45 Risk factors: 1-2 risk factors Troponin: Troponin T < 0.010 ng/mL (0.00-0.029) 08/30/21 17:40 Troponin: < normal limit - Critical Actions Critical Actions: 0-3 pts:0.9-1.7%risk of adverse cardiac event.Candidate for discharge Results - Labs CBC & Chem 7: 09/01/21 16:00 09/02/21 12:03 Labs: Laboratory Last Values WBC 13.6 K/mm3 (4.5-11.0) H 09/01/21 16:00 RBC 4.11 M/mm3 (3.65-5.03) 09/01/21 16:00 Hgb 10.3 gm/dl (10.1-14.3) 09/01/21 16:00 Hct 33.8 % (30.3-42.9) D 09/01/21 16:00 MCV 82 fl (79-97) 09/01/21 16:00 MCH 25 pg (28-32) L 09/01/21 16:00 MCHC 31 % (30-34) 09/01/21 16:00 RDW 17.5 % (13.2-15.2) H 09/01/21 16:00 Plt Count 163 K/mm3 (140-440) 09/01/21 16:00 Lymph % (Auto) 5.9 % (13.4-35.0) L 08/30/21 17:40 [place] % (Auto) 10.2 % (0.0-7.3) H 08/30/21 17:40 Eos % (Auto) 0.0 % (0.0-4.3) 08/30/21 17:40 Baso % (Auto) 0.3 % (0.0-1.8) 08/30/21 17:40 Lymph # (Auto) 1.0 K/mm3 (1.2-5.4) L 08/30/21 17:40 [place] # (Auto) 1.7 K/mm3 (0.0-0.8) H 08/30/21 17:40 Eos # (Auto) 0.0 K/mm3 (0.0-0.4) 08/30/21 17:40 Baso # (Auto) 0.0 K/mm3 (0.0-0.1) 08/30/21 17:40 Seg Neutrophils % 83.6 % (40.0-70.0) H 08/30/21 17:40 Seg Neutrophils # 13.6 K/mm3 (1.8-7.7) H 08/30/21 17:40 PT 14.9 Sec. (12.2-14.9) 08/30/21 17:40 INR 1.05 (0.87-1.13) 08/30/21 17:40 Sodium 150 mmol/L (137-145) H 09/02/21 12:03 Potassium 3.9 mmol/L (3.6-5.0) 09/02/21 12:03 Chloride 114.8 mmol/L (98-107) H 09/02/21 12:03 Carbon Dioxide 19 mmol/L (22-30) L 09/02/21 12:03 Anion Gap 20 mmol/L 09/02/21 12:03 BUN 12 mg/dL (7-17) 09/02/21 12:03 Creatinine 0.9 mg/dL (0.6-1.2) 09/02/21 12:03 Estimated GFR > 60 ml/min 09/02/21 12:03 BUN/Creatinine Ratio 13 % 09/02/21 12:03 Glucose 214 mg/dL (65-100) H 09/02/21 12:03 POC Glucose 313 mg/dL (70-105) H 09/02/21 15:01 Hemoglobin A1c 13.1 % (4-6) H 09/01/21 04:24 Ketones Quantitative Small (Negative) 08/30/21 17:40 Lactic Acid 2.60 mmol/L (0.7-2.0) H* 09/02/21 04:29 Calcium 7.3 mg/dL (8.4-10.2) L 09/02/21 12:03 Phosphorus 4.30 mg/dL (2.5-4.5) D 09/02/21 04:29 Magnesium 2.00 mg/dL (1.7-2.3) 09/02/21 04:29 Total Bilirubin 0.20 mg/dL (0.1-1.2) 09/01/21 04:24 AST 37 units/L (5-40) 09/01/21 04:24 ALT 26 units/L (7-56) 09/01/21 04:24 Alkaline Phosphatase 145 units/L (35-129) H 09/01/21 04:24 Ammonia 18.0 umol/L (25-60) L 08/30/21 17:40 Total Creatine Kinase 203 units/L (30-135) H 08/30/21 17:40 Troponin T < 0.010 ng/mL (0.00-0.029) 08/30/21 17:40 Total Protein 7.1 g/dL (6.3-8.2) D 09/01/21 04:24 Albumin 3.6 g/dL (3.9-5) L 09/01/21 04:24 Albumin/Globulin Ratio 1.0 % 09/01/21 04:24 Urine Color Straw (Yellow) 08/30/21 22:56 Urine Turbidity Clear (Clear) 08/30/21 22:56 Urine pH 6.0 (5.0-7.0) 08/30/21 22:56 Ur Specific [place] 1.029 (1.003-1.030) 08/30/21 22:56 Urine Protein 30 mg/dl mg/dL (Negative) 08/30/21 22:56 Urine Glucose (UA) >=500 mg/dL (Negative) 08/30/21 22:56 Urine Ketones 20 mg/dL (Negative) 08/30/21 22:56 Urine Blood Lg (Negative) 08/30/21 22:56 Urine Nitrite Neg (Negative) 08/30/21 22:56 Urine Bilirubin Neg (Negative) 08/30/21 22:56 Urine Urobilinogen < 2.0 mg/dL (<2.0) 08/30/21 22:56 Ur Leukocyte Esterase Neg (Negative) 08/30/21 22:56 Urine WBC (Auto) 6.0 /HPF (0.0-6.0) 08/30/21 22:56 Urine RBC (Auto) 14.0 /HPF (0.0-6.0) 08/30/21 22:56 U Epithel Cells (Auto) 1.0 /HPF (0-13.0) 08/30/21 22:56 Urine Mucus Few /HPF 08/30/21 22:56 Urine Yeast (Budding) Few /HPF 08/30/21 22:56 Urine Creatinine 136.6 mg/dL (0.1-20.0) H 09/01/21 17:40 Urine Sodium 52 mmol/L 09/01/21 17:40 Urine Total Protein 60 mg/dL (5-11.8) H 09/01/21 17:40 Salicylates < 0.3 mg/dL (2.8-20.0) L 08/30/21 17:40 Urine Opiates Screen Presumptive negative 08/30/21 22:56 Urine Methadone Screen Presumptive negative 08/30/21 22:56 Acetaminophen 5.0 ug/mL (10.0-30.0) L 08/30/21 17:40 Ur Barbiturates Screen Presumptive negative 08/30/21 22:56 Ur Phencyclidine Scrn Presumptive negative 08/30/21 22:56 Ur Amphetamines Screen Presumptive negative 08/30/21 22:56 U Benzodiazepines Scrn Presumptive negative 08/30/21 22:56 Urine Cocaine Screen Presumptive negative 08/30/21 22:56 U Marijuana (THC) Screen Presumptive negative 08/30/21 22:56 Drugs of Abuse Note Disclamer 08/30/21 22:56 Plasma/Serum Alcohol < 0.01 % (0-0.07) 08/30/21 17:40 Myers/IV: Voiding Method Indwelling Catheter Active Medications - Current Medications Current Medications: Generic Name Dose Route Start Last Admin Trade Name Sebasq PRN Reason Stop Dose Admin Acetaminophen 650 mg 08/30/21 20:51 09/01/21 04:13 Acetaminophen 325 Mg Tab PO 650 mg Q4H PRN Administration Pain MILD(1-3)/Fever >100.5/MUÑOZ Dextrose 0 ml 09/01/21 10:01 Dextrose 10% *Hypoglycemia IV PRN PRN Hypoglycemia Heparin Sodium (Porcine) 5,000 unit 08/30/21 22:00 09/02/21 09:05 Heparin 5,000 Unit/1 Ml Vial SUB-Q 5,000 unit Q12HR SEAN Administration Hydromorphone HCl 0.5 mg 08/30/21 20:51 09/01/21 19:58 Hydromorphone 1 Mg/1 Ml Inj IV 0.5 mg Q3H PRN Administration Pain , Severe (7-10) Insulin Glargine 15 units 09/02/21 22:00 Insulin Glargine 100 Units/Ml SUB-Q QHS SEAN Insulin Human Regular 0 units 09/02/21 13:30 09/02/21 15:08 Insulin Regular, Human 100 Units/1 Ml SUB-Q 8 units ACHS SEAN Administration Protocol Lorazepam 2 mg 08/30/21 23:28 09/02/21 08:59 Lorazepam 2 Mg/Ml Vial IV 2 mg Q4H PRN Administration Agitation Lorazepam 1 mg 08/30/21 23:29 08/31/21 04:20 Lorazepam 2 Mg/Ml Vial IV 1 mg Q4H PRN Administration Agitation Metoprolol Tartrate 25 mg 09/03/21 10:00 Metoprolol Tartrate 25 Mg Tab PO BID SEAN Ondansetron HCl 4 mg 08/30/21 20:51 Ondansetron 4 Mg/2 Ml Inj IV Q8H PRN Nausea And Vomiting Oxycodone/Acetaminophen 1 tab 08/30/21 20:51 Oxycodone /Acetaminophen 5-325mg Tab PO Q6H PRN Pain, Moderate (4-6) Sodium Chloride 10 ml 08/30/21 22:00 09/02/21 09:06 Sodium Chloride 0.9% 10 Ml Flush Syringe IV 10 ml BID SEAN Administration Sodium Chloride 10 ml 08/30/21 20:51 Sodium Chloride 0.9% 10 Ml Flush Syringe IV PRN PRN LINE FLUSH Nutrition/Malnutrition Assess - Dietary Evaluation Nutrition/Malnutrition Findings: Nutrition Notes Start: 08/31/21 16:01 Freq: Status: Active Protocol: Document 08/31/21 16:01 VIVIAN (Rec: 08/31/21 16:09 VIVIAN [email or web address]) Nutrition Notes Need for Assessment generated from: MD Order,Education Initial or Follow up Brief Note Current Diagnosis Acute Kidney Injury,Diabetes, Hypertension Other Pertinent Diagnosis Metabolic Encelophathy & Acidosis, SIRS, Pneumonia, Hyponatremia. Current Diet NPO (since 08/30 20:52). 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 Weight Status Morbidly Obese Subjective/Other Information RD consult for Nutrition Education. Pt currently on NPO. Pt still on critical conditions, not a candidate for Nutrition Education at the time, will assess feasibility on F/U. Percent of energy/protein needs met: Pt currently on NPO. Nutrition Intervention Follow-Up By: 09/07/21 Additional Comments Nutrition education will be provided on F/U, if feasible. When pertinent, monitor food tolerance, %PO intake of meals , and BM. <ELEAZAR MORLEY - Last Filed: 09/02/21 20:35> Assessment and Plan Assessment and plan: I saw and evaluated the patient. I agree with the findings and the plan of care as documented in the Nurse Practitioner's~note, with the following corrections and additions. Hospitalist Physical - Constitutional Vitals: Temp Pulse Resp BP Pulse Ox 99.1 F 95 H 45 H 128/77 94 09/02/21 15:24 09/02/21 18:00 09/02/21 18:00 09/02/21 18:00 09/02/21 18:00 HEART Score - HEART Score Troponin: Troponin T < 0.010 ng/mL (0.00-0.029) 08/30/21 17:40 Results - Labs CBC & Chem 7: 09/01/21 16:00 09/02/21 12:03 Labs: Laboratory Last Values WBC 13.6 K/mm3 (4.5-11.0) H 09/01/21 16:00 RBC 4.11 M/mm3 (3.65-5.03) 09/01/21 16:00 Hgb 10.3 gm/dl (10.1-14.3) 09/01/21 16:00 Hct 33.8 % (30.3-42.9) D 09/01/21 16:00 MCV 82 fl (79-97) 09/01/21 16:00 MCH 25 pg (28-32) L 09/01/21 16:00 MCHC 31 % (30-34) 09/01/21 16:00 RDW 17.5 % (13.2-15.2) H 09/01/21 16:00 Plt Count 163 K/mm3 (140-440) 09/01/21 16:00 Lymph % (Auto) 5.9 % (13.4-35.0) L 08/30/21 17:40 [place] % (Auto) 10.2 % (0.0-7.3) H 08/30/21 17:40 Eos % (Auto) 0.0 % (0.0-4.3) 08/30/21 17:40 Baso % (Auto) 0.3 % (0.0-1.8) 08/30/21 17:40 Lymph # (Auto) 1.0 K/mm3 (1.2-5.4) L 08/30/21 17:40 [place] # (Auto) 1.7 K/mm3 (0.0-0.8) H 08/30/21 17:40 Eos # (Auto) 0.0 K/mm3 (0.0-0.4) 08/30/21 17:40 Baso # (Auto) 0.0 K/mm3 (0.0-0.1) 08/30/21 17:40 Seg Neutrophils % 83.6 % (40.0-70.0) H 08/30/21 17:40 Seg Neutrophils # 13.6 K/mm3 (1.8-7.7) H 08/30/21 17:40 PT 14.9 Sec. (12.2-14.9) 08/30/21 17:40 INR 1.05 (0.87-1.13) 08/30/21 17:40 Sodium 150 mmol/L (137-145) H 09/02/21 12:03 Potassium 3.9 mmol/L (3.6-5.0) 09/02/21 12:03 Chloride 114.8 mmol/L (98-107) H 09/02/21 12:03 Carbon Dioxide 19 mmol/L (22-30) L 09/02/21 12:03 Anion Gap 20 mmol/L 09/02/21 12:03 BUN 12 mg/dL (7-17) 09/02/21 12:03 Creatinine 0.9 mg/dL (0.6-1.2) 09/02/21 12:03 Estimated GFR > 60 ml/min 09/02/21 12:03 BUN/Creatinine Ratio 13 % 09/02/21 12:03 Glucose 214 mg/dL (65-100) H 09/02/21 12:03 POC Glucose 277 mg/dL (70-105) H 09/02/21 16:19 Hemoglobin A1c 13.1 % (4-6) H 09/01/21 04:24 Ketones Quantitative Small (Negative) 08/30/21 17:40 Lactic Acid 2.60 mmol/L (0.7-2.0) H* 09/02/21 04:29 Calcium 7.3 mg/dL (8.4-10.2) L 09/02/21 12:03 Phosphorus 4.30 mg/dL (2.5-4.5) D 09/02/21 04:29 Magnesium 2.00 mg/dL (1.7-2.3) 09/02/21 04:29 Total Bilirubin 0.20 mg/dL (0.1-1.2) 09/01/21 04:24 AST 37 units/L (5-40) 09/01/21 04:24 ALT 26 units/L (7-56) 09/01/21 04:24 Alkaline Phosphatase 145 units/L (35-129) H 09/01/21 04:24 Ammonia 18.0 umol/L (25-60) L 08/30/21 17:40 Total Creatine Kinase 203 units/L (30-135) H 08/30/21 17:40 Troponin T < 0.010 ng/mL (0.00-0.029) 08/30/21 17:40 Total Protein 7.1 g/dL (6.3-8.2) D 09/01/21 04:24 Albumin 3.6 g/dL (3.9-5) L 09/01/21 04:24 Albumin/Globulin Ratio 1.0 % 09/01/21 04:24 Urine Color Straw (Yellow) 08/30/21 22:56 Urine Turbidity Clear (Clear) 08/30/21 22:56 Urine pH 6.0 (5.0-7.0) 08/30/21 22:56 Ur Specific [place] 1.029 (1.003-1.030) 08/30/21 22:56 Urine Protein 30 mg/dl mg/dL (Negative) 08/30/21 22:56 Urine Glucose (UA) >=500 mg/dL (Negative) 08/30/21 22:56 Urine Ketones 20 mg/dL (Negative) 08/30/21 22:56 Urine Blood Lg (Negative) 08/30/21 22:56 Urine Nitrite Neg (Negative) 08/30/21 22:56 Urine Bilirubin Neg (Negative) 08/30/21 22:56 Urine Urobilinogen < 2.0 mg/dL (<2.0) 08/30/21 22:56 Ur Leukocyte Esterase Neg (Negative) 08/30/21 22:56 Urine WBC (Auto) 6.0 /HPF (0.0-6.0) 08/30/21 22:56 Urine RBC (Auto) 14.0 /HPF (0.0-6.0) 08/30/21 22:56 U Epithel Cells (Auto) 1.0 /HPF (0-13.0) 08/30/21 22:56 Urine Mucus Few /HPF 08/30/21 22:56 Urine Yeast (Budding) Few /HPF 08/30/21 22:56 Urine Creatinine 136.6 mg/dL (0.1-20.0) H 09/01/21 17:40 Urine Sodium 52 mmol/L 09/01/21 17:40 Urine Total Protein 60 mg/dL (5-11.8) H 09/01/21 17:40 Salicylates < 0.3 mg/dL (2.8-20.0) L 08/30/21 17:40 Urine Opiates Screen Presumptive negative 08/30/21 22:56 Urine Methadone Screen Presumptive negative 08/30/21 22:56 Acetaminophen 5.0 ug/mL (10.0-30.0) L 08/30/21 17:40 Ur Barbiturates Screen Presumptive negative 08/30/21 22:56 Ur Phencyclidine Scrn Presumptive negative 08/30/21 22:56 Ur Amphetamines Screen Presumptive negative 08/30/21 22:56 U Benzodiazepines Scrn Presumptive negative 08/30/21 22:56 Urine Cocaine Screen Presumptive negative 08/30/21 22:56 U Marijuana (THC) Screen Presumptive negative 08/30/21 22:56 Drugs of Abuse Note Disclamer 08/30/21 22:56 Plasma/Serum Alcohol < 0.01 % (0-0.07) 08/30/21 17:40 Myers/IV: Voiding Method Indwelling Catheter Active Medications - Current Medications Current Medications: Generic Name Dose Route Start Last Admin Trade Name Freq PRN Reason Stop Dose Admin Acetaminophen 650 mg 08/30/21 20:51 09/01/21 04:13 Acetaminophen 325 Mg Tab PO 650 mg Q4H PRN Administration Pain MILD(1-3)/Fever >100.5/MUÑOZ Dextrose 0 ml 09/01/21 10:01 Dextrose 10% *Hypoglycemia IV PRN PRN Hypoglycemia Heparin Sodium (Porcine) 5,000 unit 08/30/21 22:00 09/02/21 09:05 Heparin 5,000 Unit/1 Ml Vial SUB-Q 5,000 unit Q12HR SEAN Administration Hydromorphone HCl 0.5 mg 08/30/21 20:51 09/01/21 19:58 Hydromorphone 1 Mg/1 Ml Inj IV 0.5 mg Q3H PRN Administration Pain , Severe (7-10) Insulin Glargine 15 units 09/02/21 22:00 Insulin Glargine 100 Units/Ml SUB-Q QHS SEAN Insulin Human Regular 0 units 09/02/21 13:30 09/02/21 16:59 Insulin Regular, Human 100 Units/1 Ml SUB-Q 6 units ACHS SEAN Administration Protocol Lorazepam 2 mg 08/30/21 23:28 09/02/21 08:59 Lorazepam 2 Mg/Ml Vial IV 2 mg Q4H PRN Administration Agitation Lorazepam 1 mg 08/30/21 23:29 08/31/21 04:20 Lorazepam 2 Mg/Ml Vial IV 1 mg Q4H PRN Administration Agitation Metoprolol Tartrate 25 mg 09/03/21 10:00 Metoprolol Tartrate 25 Mg Tab PO BID [facility] Ondansetron HCl 4 mg 08/30/21 20:51 Ondansetron 4 Mg/2 Ml Inj IV Q8H PRN Nausea And Vomiting Oxycodone/Acetaminophen 1 tab 08/30/21 20:51 Oxycodone /Acetaminophen 5-325mg Tab PO Q6H PRN Pain, Moderate (4-6) Sodium Chloride 10 ml 08/30/21 22:00 09/02/21 09:06 Sodium Chloride 0.9% 10 Ml Flush Syringe IV 10 ml BID SEAN Administration Sodium Chloride 10 ml 08/30/21 20:51 Sodium Chloride 0.9% 10 Ml Flush Syringe IV PRN PRN LINE FLUSH Nutrition/Malnutrition Assess - Dietary Evaluation Nutrition/Malnutrition Findings: Nutrition Notes Start: 08/31/21 16:01 Freq: Status: Active Protocol: Document 08/31/21 16:01 VIVIAN (Rec: 08/31/21 16:09 VIVIAN [email or web address]) Nutrition Notes Need for Assessment generated from: MD Order,Education Initial or Follow up Brief Note Current Diagnosis Acute Kidney Injury,Diabetes, Hypertension Other Pertinent Diagnosis Metabolic Encelophathy & Acidosis, SIRS, Pneumonia, Hyponatremia. Current Diet NPO (since 08/30 20:52). 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 Weight Status Morbidly Obese Subjective/Other Information RD consult for Nutrition Education. Pt currently on NPO. Pt still on critical conditions, not a candidate for Nutrition Education at the time, will assess feasibility on F/U. Percent of energy/protein needs met: Pt currently on NPO. Nutrition Intervention Follow-Up By: 09/07/21 Additional Comments Nutrition education will be provided on F/U, if feasible. When pertinent, monitor food tolerance, %PO intake of meals , and BM.
[2021-09-02] MEDS ORDERED: METOPROLOL TARTRATE 25 MG TAB PO SCH (16:00)
--- NOTE | 2021-09-02 17:39 | Progress Note ---
Assessment and Plan 35 y/o obese female admitted with metabolic encephalopathy and DKA Ok to feed patient, this will happen today. Change to long acting insulin, discussed with pharmacy Can add some PRN haldol in addition to ativan May be ready for transfer tomorrow. Subjective Date of service: 09/02/21 Interval history: Still on insulin. not transitioned. More awake today than yesterday. Remains stable on room air. Objective - Constitutional Vitals: Vital Signs - 12hr 09/02/21 09/02/21 09/02/21 06:00 06:30 07:00 Temperature Pulse Rate 85 87 88 Pulse Rate [ From Monitor] Respiratory 31 H 36 H 39 H Rate Blood Pressure 135/78 144/81 142/78 O2 Sat by Pulse 97 97 97 Oximetry 09/02/21 09/02/21 09/02/21 07:30 07:59 08:00 Temperature 98.5 F Pulse Rate 87 88 88 Pulse Rate [ 89 From Monitor] Respiratory 38 H 36 H Rate Blood Pressure 139/75 148/94 O2 Sat by Pulse 98 98 Oximetry 09/02/21 09/02/21 09/02/21 08:30 09:01 09:30 Temperature Pulse Rate 88 88 88 Pulse Rate [ From Monitor] Respiratory 25 H 33 H 41 H Rate Blood Pressure 138/95 158/93 168/98 O2 Sat by Pulse 99 98 100 Oximetry 09/02/21 09/02/21 09/02/21 10:00 10:31 11:01 Temperature Pulse Rate 86 86 86 Pulse Rate [ From Monitor] Respiratory 39 H 34 H 31 H Rate Blood Pressure 154/88 164/93 141/90 O2 Sat by Pulse 100 98 97 Oximetry 09/02/21 09/02/21 09/02/21 11:13 11:14 11:31 Temperature Pulse Rate 86 89 Pulse Rate [ 86 From Monitor] Respiratory 34 H 19 Rate Blood Pressure 141/90 O2 Sat by Pulse 97 99 Oximetry 09/02/21 09/02/21 09/02/21 12:01 12:31 13:00 Temperature Pulse Rate 87 90 90 Pulse Rate [ From Monitor] Respiratory 20 Rate Blood Pressure 122/89 180/134 165/83 O2 Sat by Pulse 99 99 100 Oximetry 09/02/21 09/02/21 09/02/21 13:31 14:01 14:31 Temperature Pulse Rate 91 H 98 H 90 Pulse Rate [ From Monitor] Respiratory 16 12 37 H Rate Blood Pressure 165/83 165/83 165/83 O2 Sat by Pulse 99 97 99 Oximetry 09/02/21 09/02/21 09/02/21 15:01 15:24 15:46 Temperature 99.1 F Pulse Rate 93 H 94 H Pulse Rate [ 94 H From Monitor] Respiratory 46 H 41 H Rate Blood Pressure 141/78 O2 Sat by Pulse 100 99 Oximetry - Labs CBC & Chem 7: 09/03/21 04:25 09/03/21 04:25 Labs: Abnormal lab results 09/01/21 09/01/21 09/01/21 Range/Units 17:40 18:08 18:55 Sodium (137-145) mmol/L Potassium (3.6-5.0) mmol/L Chloride (98-107) mmol/L Carbon Dioxide (22-30) mmol/L Glucose (65-100) mg/dL POC Glucose 218 H 221 H (70-105) mg/dL Lactic Acid (0.7-2.0) mmol/L Calcium (8.4-10.2) mg/dL Urine Creatinine 136.6 H (0.1-20.0) mg/dL Urine Total Protein 60 H (5-11.8) mg/dL 09/01/21 09/01/21 09/01/21 Range/Units 20:04 20:57 21:30 Sodium (137-145) mmol/L Potassium (3.6-5.0) mmol/L Chloride (98-107) mmol/L Carbon Dioxide (22-30) mmol/L Glucose (65-100) mg/dL POC Glucose 227 H 222 H 224 H (70-105) mg/dL Lactic Acid (0.7-2.0) mmol/L Calcium (8.4-10.2) mg/dL Urine Creatinine (0.1-20.0) mg/dL Urine Total Protein (5-11.8) mg/dL 09/01/21 09/01/21 09/02/21 Range/Units 21:56 23:52 01:52 Sodium (137-145) mmol/L Potassium (3.6-5.0) mmol/L Chloride (98-107) mmol/L Carbon Dioxide (22-30) mmol/L Glucose (65-100) mg/dL POC Glucose 221 H 201 H 158 H (70-105) mg/dL Lactic Acid (0.7-2.0) mmol/L Calcium (8.4-10.2) mg/dL Urine Creatinine (0.1-20.0) mg/dL Urine Total Protein (5-11.8) mg/dL 09/02/21 09/02/21 09/02/21 Range/Units 03:32 04:29 04:29 Sodium 151 H (137-145) mmol/L Potassium 3.3 L (3.6-5.0) mmol/L Chloride 118.9 H (98-107) mmol/L Carbon Dioxide 17 L (22-30) mmol/L Glucose 173 H (65-100) mg/dL POC Glucose 179 H (70-105) mg/dL Lactic Acid 2.60 H* (0.7-2.0) mmol/L Calcium 7.4 L (8.4-10.2) mg/dL Urine Creatinine (0.1-20.0) mg/dL Urine Total Protein (5-11.8) mg/dL 09/02/21 09/02/21 09/02/21 Range/Units 04:38 05:22 07:10 Sodium (137-145) mmol/L Potassium (3.6-5.0) mmol/L Chloride (98-107) mmol/L Carbon Dioxide (22-30) mmol/L Glucose (65-100) mg/dL POC Glucose 167 H 174 H 245 H (70-105) mg/dL Lactic Acid (0.7-2.0) mmol/L Calcium (8.4-10.2) mg/dL Urine Creatinine (0.1-20.0) mg/dL Urine Total Protein (5-11.8) mg/dL 09/02/21 09/02/21 09/02/21 Range/Units 08:23 09:23 10:22 Sodium (137-145) mmol/L Potassium (3.6-5.0) mmol/L Chloride (98-107) mmol/L Carbon Dioxide (22-30) mmol/L Glucose (65-100) mg/dL POC Glucose 223 H 210 H 198 H (70-105) mg/dL Lactic Acid (0.7-2.0) mmol/L Calcium (8.4-10.2) mg/dL Urine Creatinine (0.1-20.0) mg/dL Urine Total Protein (5-11.8) mg/dL 09/02/21 09/02/21 09/02/21 Range/Units 11:19 12:03 12:11 Sodium 150 H (137-145) mmol/L Potassium (3.6-5.0) mmol/L Chloride 114.8 H (98-107) mmol/L Carbon Dioxide 19 L (22-30) mmol/L Glucose 214 H (65-100) mg/dL POC Glucose 304 H 201 H (70-105) mg/dL Lactic Acid (0.7-2.0) mmol/L Calcium 7.3 L (8.4-10.2) mg/dL Urine Creatinine (0.1-20.0) mg/dL Urine Total Protein (5-11.8) mg/dL 09/02/21 09/02/21 09/02/21 Range/Units 13:15 14:05 15:01 Sodium (137-145) mmol/L Potassium (3.6-5.0) mmol/L Chloride (98-107) mmol/L Carbon Dioxide (22-30) mmol/L Glucose (65-100) mg/dL POC Glucose 177 H 189 H 313 H (70-105) mg/dL Lactic Acid (0.7-2.0) mmol/L Calcium (8.4-10.2) mg/dL Urine Creatinine (0.1-20.0) mg/dL Urine Total Protein (5-11.8) mg/dL 09/02/21 Range/Units 16:19 Sodium (137-145) mmol/L Potassium (3.6-5.0) mmol/L Chloride (98-107) mmol/L Carbon Dioxide (22-30) mmol/L Glucose (65-100) mg/dL POC Glucose 277 H (70-105) mg/dL Lactic Acid (0.7-2.0) mmol/L Calcium (8.4-10.2) mg/dL Urine Creatinine (0.1-20.0) mg/dL Urine Total Protein (5-11.8) mg/dL Medications & Allergies - Medications Allergies/Adverse Reactions: Allergies No Known Allergies Allergy (Verified 08/30/21 17:10) Active Medications: Generic Name Dose Route Start Last Admin Trade Name Freq PRN Reason Stop Dose Admin Acetaminophen 650 mg 08/30/21 20:51 09/01/21 04:13 Acetaminophen 325 Mg Tab PO 650 mg Q4H PRN Administration Pain MILD(1-3)/Fever >100.5/MUÑOZ Dextrose 0 ml 09/01/21 10:01 Dextrose 10% *Hypoglycemia IV PRN PRN Hypoglycemia Heparin Sodium (Porcine) 5,000 unit 08/30/21 22:00 09/02/21 09:05 Heparin 5,000 Unit/1 Ml Vial SUB-Q 5,000 unit Q12HR SEAN Administration Hydromorphone HCl 0.5 mg 08/30/21 20:51 09/01/21 19:58 Hydromorphone 1 Mg/1 Ml Inj IV 0.5 mg Q3H PRN Administration Pain , Severe (7-10) Insulin Glargine 15 units 09/02/21 22:00 Insulin Glargine 100 Units/Ml SUB-Q QHS SEAN Insulin Human Regular 0 units 09/02/21 13:30 09/02/21 16:59 Insulin Regular, Human 100 Units/1 Ml SUB-Q 6 units ACHS SEAN Administration Protocol Lorazepam 2 mg 08/30/21 23:28 09/02/21 08:59 Lorazepam 2 Mg/Ml Vial IV 2 mg Q4H PRN Administration Agitation Lorazepam 1 mg 08/30/21 23:29 08/31/21 04:20 Lorazepam 2 Mg/Ml Vial IV 1 mg Q4H PRN Administration Agitation Metoprolol Tartrate 25 mg 09/03/21 10:00 Metoprolol Tartrate 25 Mg Tab PO BID [facility] Ondansetron HCl 4 mg 08/30/21 20:51 Ondansetron 4 Mg/2 Ml Inj IV Q8H PRN Nausea And Vomiting Oxycodone/Acetaminophen 1 tab 08/30/21 20:51 Oxycodone /Acetaminophen 5-325mg Tab PO Q6H PRN Pain, Moderate (4-6) Sodium Chloride 10 ml 08/30/21 22:00 09/02/21 09:06 Sodium Chloride 0.9% 10 Ml Flush Syringe IV 10 ml BID SEAN Administration Sodium Chloride 10 ml 08/30/21 20:51 Sodium Chloride 0.9% 10 Ml Flush Syringe IV PRN PRN LINE FLUSH HEART Score - HEART Score EKG: Normal Age: < 45 Risk factors: 1-2 risk factors Troponin: Troponin T < 0.010 ng/mL (0.00-0.029) 08/30/21 17:40 Troponin: < normal limit - Critical Actions Critical Actions: 0-3 pts:0.9-1.7%risk of adverse cardiac event.Candidate for discharge
[2021-09-03 05:03] LABS: Hematocrit 32.3 % (30.3-42.9); Mean Corpuscular HGB Conc 31 % (30-34); Mean Corpuscular Volume 83 fl (79-97); Red Blood Count 3.89 M/mm3 (3.65-5.03); Red Cell Distribution Width 17.6 % (13.2-15.2)
[2021-09-03 05:08] LABS: Platelet Count 95 K/mm3 (140-440)
[2021-09-03 05:13] LABS: BUN/Creatinine Ratio 14; Blood Urea Nitrogen 13 mg/dL (7-17); Hemolysis Index 15
[2021-09-03] MEDS ORDERED: INSULIN GLARGINE 100 UNITS/ML SUB-Q SCH (05:40)
[2021-09-03] MEDS ORDERED: INSULIN REGULAR, HUMAN 100 UNITS/1 ML SUB-Q SCH (05:40)
[2021-09-03] MEDS: INSULIN REGULAR, HUMAN 100 UNITS/1 ML SUB-Q SCH ×4 (08:18→21:46)
[2021-09-03] MEDS: LOSARTAN 50 MG TAB PO SCH (09:34)
[2021-09-03] MEDS: hydroCHLOROthiazide 12.5 MG CAP PO SCH (09:34)
[2021-09-03] MEDS ORDERED: METOPROLOL TARTRATE 25 MG TAB PO SCH (10:00)
[2021-09-03] MEDS: INSULIN NPH/REGULAR 70/30 INJ SUB-Q SCH ×2 (10:28→16:58)
[2021-09-03 10:54] LABS: BUN/Creatinine Ratio 16; Blood Urea Nitrogen 14 mg/dL (7-17); Calcium 8.3 mg/dL (8.4-10.2); Hemolysis Index 8
--- NOTE | 2021-09-03 10:54 | Progress Note ---
Assessment and Plan 35 y/o obese female admitted with metabolic encephalopathy and DKA Increase basal insulin. Agree with BID dosing. May need more as we are using 70/30 Diet and exercise Stable for transfer. Will sign off. Subjective Date of service: 09/03/21 Interval history: Awake and alert. Tolerating PO. Off insulin drip. Sugars are still high Objective - Constitutional Vitals: Vital Signs - 12hr 09/02/21 09/02/21 09/02/21 23:01 23:23 23:30 Temperature Pulse Rate 96 H 95 H 98 H Pulse Rate [ From Monitor] Respiratory 49 H 46 H 34 H Rate Blood Pressure 132/85 132/85 141/83 O2 Sat by Pulse 96 96 97 Oximetry 09/02/21 09/03/21 09/03/21 23:59 00:00 00:30 Temperature 100.4 F H Pulse Rate 99 H 98 H Pulse Rate [ 98 H From Monitor] Respiratory 47 H Rate Blood Pressure 147/89 130/104 O2 Sat by Pulse 97 99 Oximetry 09/03/21 09/03/21 09/03/21 01:00 01:30 02:01 Temperature Pulse Rate 94 H 96 H Pulse Rate [ From Monitor] Respiratory 41 H 51 H Rate Blood Pressure 154/84 132/66 132/66 O2 Sat by Pulse 98 99 98 Oximetry 09/03/21 09/03/21 09/03/21 02:30 03:01 03:30 Temperature Pulse Rate 97 H 104 H 97 H Pulse Rate [ From Monitor] Respiratory 16 27 H Rate Blood Pressure 141/78 115/78 125/86 O2 Sat by Pulse 98 98 96 Oximetry 09/03/21 09/03/21 09/03/21 03:37 04:00 04:30 Temperature 99.1 F Pulse Rate 95 H 95 H Pulse Rate [ 95 H From Monitor] Respiratory 35 H 31 H Rate Blood Pressure 137/74 160/84 O2 Sat by Pulse 99 97 Oximetry 09/03/21 09/03/21 09/03/21 05:00 05:30 06:00 Temperature Pulse Rate 96 H 99 H 98 H Pulse Rate [ From Monitor] Respiratory 32 H 31 H 39 H Rate Blood Pressure 140/69 143/79 163/93 O2 Sat by Pulse 94 98 97 Oximetry 09/03/21 09/03/21 09/03/21 06:30 07:01 09:33 Temperature Pulse Rate 95 H 99 H Pulse Rate [ From Monitor] Respiratory 17 30 H Rate Blood Pressure 167/90 167/90 O2 Sat by Pulse 98 97 96 Oximetry 09/03/21 09:34 Temperature Pulse Rate 97 H Pulse Rate [ From Monitor] Respiratory Rate Blood Pressure 166/96 O2 Sat by Pulse Oximetry - Labs CBC & Chem 7: 09/03/21 04:25 09/03/21 04:25 Labs: Abnormal lab results 09/02/21 09/02/21 09/02/21 Range/Units 11:19 12:03 12:11 Hgb (10.1-14.3) gm/dl MCH (28-32) pg RDW (13.2-15.2) % Plt Count (140-440) K/mm3 Sodium 150 H (137-145) mmol/L Chloride 114.8 H (98-107) mmol/L Carbon Dioxide 19 L (22-30) mmol/L Glucose 214 H (65-100) mg/dL POC Glucose 304 H 201 H (70-105) mg/dL Calcium 7.3 L (8.4-10.2) mg/dL 09/02/21 09/02/21 09/02/21 Range/Units 13:15 14:05 15:01 Hgb (10.1-14.3) gm/dl MCH (28-32) pg RDW (13.2-15.2) % Plt Count (140-440) K/mm3 Sodium (137-145) mmol/L Chloride (98-107) mmol/L Carbon Dioxide (22-30) mmol/L Glucose (65-100) mg/dL POC Glucose 177 H 189 H 313 H (70-105) mg/dL Calcium (8.4-10.2) mg/dL 09/02/21 09/02/21 09/03/21 Range/Units 16:19 21:25 04:25 Hgb (10.1-14.3) gm/dl MCH (28-32) pg RDW (13.2-15.2) % Plt Count (140-440) K/mm3 Sodium 147 H (137-145) mmol/L Chloride 111.4 H (98-107) mmol/L Carbon Dioxide 19 L (22-30) mmol/L Glucose 453 H (65-100) mg/dL POC Glucose 277 H 400 H (70-105) mg/dL Calcium 8.0 L (8.4-10.2) mg/dL 09/03/21 09/03/21 Range/Units 04:25 07:34 Hgb 10.0 L (10.1-14.3) gm/dl MCH 26 L (28-32) pg RDW 17.6 H (13.2-15.2) % Plt Count 95 L (140-440) K/mm3 Sodium (137-145) mmol/L Chloride (98-107) mmol/L Carbon Dioxide (22-30) mmol/L Glucose (65-100) mg/dL POC Glucose 381 H (70-105) mg/dL Calcium (8.4-10.2) mg/dL Medications & Allergies - Medications Allergies/Adverse Reactions: Allergies No Known Allergies Allergy (Verified 08/30/21 17:10) Active Medications: Generic Name Dose Route Start Last Admin Trade Name Freq PRN Reason Stop Dose Admin Acetaminophen 650 mg 08/30/21 20:51 09/01/21 04:13 Acetaminophen 325 Mg Tab PO 650 mg Q4H PRN Administration Pain MILD(1-3)/Fever >100.5/MUÑOZ Dextrose 0 ml 09/01/21 10:01 Dextrose 10% *Hypoglycemia IV PRN PRN Hypoglycemia Hydrochlorothiazide 12.5 mg 09/03/21 10:00 09/03/21 09:34 Hydrochlorothiazide 12.5 Mg Cap PO 12.5 mg QDAY SEAN Administration Insulin Human Isoph/Insulin Regular 30 unit 09/03/21 10:00 09/03/21 10:28 Insulin Nph/Regular 70/30 Inj SUB-Q 30 unit BIDDIAB SEAN Administration Insulin Human Regular 0 units 09/03/21 08:00 09/03/21 08:18 Insulin Regular, Human 100 Units/1 Ml SUB-Q 10 units ACHS SEAN Administration Protocol Lorazepam 2 mg 08/30/21 23:28 09/02/21 19:50 Lorazepam 2 Mg/Ml Vial IV 2 mg Q4H PRN Administration Agitation Lorazepam 1 mg 08/30/21 23:29 08/31/21 04:20 Lorazepam 2 Mg/Ml Vial IV 1 mg Q4H PRN Administration Agitation Losartan Potassium 50 mg 09/03/21 10:00 09/03/21 09:34 Losartan 50 Mg Tab PO 50 mg QDAY SEAN Administration Ondansetron HCl 4 mg 08/30/21 20:51 Ondansetron 4 Mg/2 Ml Inj IV Q8H PRN Nausea And Vomiting Oxycodone/Acetaminophen 1 tab 08/30/21 20:51 Oxycodone /Acetaminophen 5-325mg Tab PO Q6H PRN Pain, Moderate (4-6) Sodium Chloride 10 ml 08/30/21 22:00 09/02/21 21:40 Sodium Chloride 0.9% 10 Ml Flush Syringe IV 10 ml BID SEAN Administration Sodium Chloride 10 ml 08/30/21 20:51 Sodium Chloride 0.9% 10 Ml Flush Syringe IV PRN PRN LINE FLUSH HEART Score - HEART Score EKG: Normal Age: < 45 Risk factors: 1-2 risk factors Troponin: Troponin T < 0.010 ng/mL (0.00-0.029) 08/30/21 17:40 Troponin: < normal limit - Critical Actions Critical Actions: 0-3 pts:0.9-1.7%risk of adverse cardiac event.Candidate for discharge
--- NOTE | 2021-09-03 11:09 | Progress Note ---
<LAUREN BERGMAN - Last Filed: 09/03/21 11:06> Assessment and Plan Assessment and plan: This is a 35-year-old female with hypertension, DM, medical noncompliance and morbid obesity admitted with DKA Neuro: Acute metabolic encephalopathy (resolved), h/o medical noncompliance -Avoid delirium -Reorientation as needed -Maintain sleep-wake cycle -CT head on admission showed diffuse cerebral atrophy, no evidence of acute ischemic injury, hemorrhage or mass Cardiac: h/o HTN -Blood pressure monitoring per protocol -As needed IV labetalol -Start p.o. beta-kira in the a.m. Respiratory: NAD -Pulmonary hygiene -SPO2 monitoring -Supplemental oxygen as needed GI: h/o morbid obesity -24 hours + [id number] -PPI -N.p.o. while on insulin drip -Start BR once appropriate -Encourage lifestyle and dietary modifications upon discharge : Hypernatremia, hyperchloremia, acute kidney injury (resolved) -MARITZA likely secondary to vasomotor nephropathy as evidenced by improvement with IVF -Strict intake and output -Renally dose medications -Avoid nephrotoxic medications -Daily weights -Consider further work-up if worsening -Replete phosphate -FeNa 0.3% -Trend BMP ID: SIRs, lactic acidosis -Presented with leukocytosis, acute kidney injury, lactic acidosis -S/p 7 L bolus -Presents with a lactic acid of 5.1 -Monitor WBC and temperature curve Endo: DKA, h/o DM -CCM consulted, appreciate recommendations -s/p insulin gtt -Accu-Cheks ACHS -Avoid hypoglycemia -SSI -Long acting insulin, titrate as needed -Hemoglobin A1c 13.1 Heme: Leukocytosis, ruled out DVT, thrombocytopenia -Trend CBC -Transfuse hemoglobin less than 7 -Monitor for signs of bleeding -Heparin subcu -DC -Hep panel pending -SCDs to BLE while in bed -right UE tight -RUE dopplar US shows SVT in cephalic vein The high probability of a clinically significant, sudden or life threatening deterioration of the [multi] system(s) required my full and direct attention, intervention and personal management. The aggregate critical care time was [60] minutes. This time is in addition to time spent performing reported procedures but includes the following: [x] Data Review and interpretation [x] Patient assessment and monitoring of vital signs [x] Documentation [x] Medication orders and management History Interval history: This is a 35-year-old female with hypertension, DM, medical noncompliance and morbid obesity who presented to emergency department on 08/30 via EMS who found the patient at her home with urinary incontinence blood sugar via Accu-Chek was read as high after being called by family member who arrived to the house after patient failed to pick it up from school. Arrival to the emergency department patient was in the emergency department patient was found to be tachycardic, tachypneic and had leukocytosis and lactic acidosi and lab work was consistent with DKA. Of note patient's blood glucose on arrival was 1955. Patient was admitted to the hospital service with consult to [facility] for DKA on DKA protocol. 08/31: Patient remains hyperglycemic despite being on over 30 units of insulin, given 10 units IV insulin, maintain on IV fluids of normal saline patient has not met criteria to be switched to dextrose containing IV fluids. Given for LR boluses overnight. Will replete potassium with K-Phos and obtain A1c. Antibiotics stopped. 09/01: remains on insulin gtt, replete phos again today, neuro status better. 09/02: Patient was transitioned off insulin drip to SSI, long-acting insulin and started on a CC diet. Hyponatremia improving. Potassium repleted. Given to LR bolus. 09/03: Patient remains hyperglycemic, tolerating p.o. Increase in long-acting insulin to 70/30 twice daily. Patient will be transferred to the floor today. Hypernatremia slightly worsened we will continue to encourage p.o. intake and monitor BMP. Leukocytosis resolved patient has thrombocytopenia today. Send off hit Hospitalist Physical - Constitutional Vitals: Temp Pulse Resp BP Pulse Ox 99.1 F 97 H 30 H 166/96 96 09/03/21 03:37 09/03/21 09:34 09/03/21 07:01 09/03/21 09:34 09/03/21 09:33 General appearance: Present: no acute distress, obese - EENT Eyes: Present: PERRL, EOM intact ENT: hearing intact, clear oral mucosa, dentition normal - Neck Neck: Present: normal ROM - Respiratory Respiratory effort: normal - Cardiovascular Rhythm: regular Heart Sounds: Present: S1 & S2. Absent: systolic murmur, diastolic murmur - Extremities Extremities: no ischemia, pulses intact, pulses symmetrical, No edema, normal temperature, normal color Peripheral Pulses: within normal limits - Abdominal General gastrointestinal: soft, non-tender, non-distended, normal bowel sounds - Integumentary Integumentary: Present: warm, dry - Psychiatric Psychiatric: cooperative - Neurologic Neurologic: CNII-XII intact, no focal deficits, moves all extremities - Allied Health Allied health notes reviewed: nursing, RT, social work HEART Score - HEART Score EKG: Normal Age: < 45 Risk factors: 1-2 risk factors Troponin: Troponin T < 0.010 ng/mL (0.00-0.029) 08/30/21 17:40 Troponin: < normal limit - Critical Actions Critical Actions: 0-3 pts:0.9-1.7%risk of adverse cardiac event.Candidate for discharge Results - Labs CBC & Chem 7: 09/03/21 04:25 09/03/21 09:24 Labs: Laboratory Last Values WBC 9.4 K/mm3 (4.5-11.0) 09/03/21 04:25 RBC 3.89 M/mm3 (3.65-5.03) 09/03/21 04:25 Hgb 10.0 gm/dl (10.1-14.3) L 09/03/21 04:25 Hct 32.3 % (30.3-42.9) 09/03/21 04:25 MCV 83 fl (79-97) 09/03/21 04:25 MCH 26 pg (28-32) L 09/03/21 04:25 MCHC 31 % (30-34) 09/03/21 04:25 RDW 17.6 % (13.2-15.2) H 09/03/21 04:25 Plt Count 95 K/mm3 (140-440) L 09/03/21 04:25 Lymph % (Auto) 5.9 % (13.4-35.0) L 08/30/21 17:40 [place] % (Auto) 10.2 % (0.0-7.3) H 08/30/21 17:40 Eos % (Auto) 0.0 % (0.0-4.3) 08/30/21 17:40 Baso % (Auto) 0.3 % (0.0-1.8) 08/30/21 17:40 Lymph # (Auto) 1.0 K/mm3 (1.2-5.4) L 08/30/21 17:40 [place] # (Auto) 1.7 K/mm3 (0.0-0.8) H 08/30/21 17:40 Eos # (Auto) 0.0 K/mm3 (0.0-0.4) 08/30/21 17:40 Baso # (Auto) 0.0 K/mm3 (0.0-0.1) 08/30/21 17:40 Seg Neutrophils % 83.6 % (40.0-70.0) H 08/30/21 17:40 Seg Neutrophils # 13.6 K/mm3 (1.8-7.7) H 08/30/21 17:40 PT 14.9 Sec. (12.2-14.9) 08/30/21 17:40 INR 1.05 (0.87-1.13) 08/30/21 17:40 Sodium 148 mmol/L (137-145) H 09/03/21 09:24 Potassium 4.4 mmol/L (3.6-5.0) 09/03/21 09:24 Chloride 111.7 mmol/L (98-107) H 09/03/21 09:24 Carbon Dioxide 21 mmol/L (22-30) L 09/03/21 09:24 Anion Gap 20 mmol/L 09/03/21 09:24 BUN 14 mg/dL (7-17) 09/03/21 09:24 Creatinine 0.9 mg/dL (0.6-1.2) 09/03/21 09:24 Estimated GFR > 60 ml/min 09/03/21 09:24 BUN/Creatinine Ratio 16 % 09/03/21 09:24 Glucose 439 mg/dL (65-100) H 09/03/21 09:24 POC Glucose 381 mg/dL (70-105) H 09/03/21 07:34 Hemoglobin A1c 13.1 % (4-6) H 09/01/21 04:24 Ketones Quantitative Small (Negative) 08/30/21 17:40 Lactic Acid 2.60 mmol/L (0.7-2.0) H* 09/02/21 04:29 Calcium 8.3 mg/dL (8.4-10.2) L 09/03/21 09:24 Phosphorus 4.30 mg/dL (2.5-4.5) D 09/02/21 04:29 Magnesium 2.00 mg/dL (1.7-2.3) 09/02/21 04:29 Total Bilirubin 0.20 mg/dL (0.1-1.2) 09/01/21 04:24 AST 37 units/L (5-40) 09/01/21 04:24 ALT 26 units/L (7-56) 09/01/21 04:24 Alkaline Phosphatase 145 units/L (35-129) H 09/01/21 04:24 Ammonia 18.0 umol/L (25-60) L 08/30/21 17:40 Total Creatine Kinase 203 units/L (30-135) H 08/30/21 17:40 Troponin T < 0.010 ng/mL (0.00-0.029) 08/30/21 17:40 Total Protein 7.1 g/dL (6.3-8.2) D 09/01/21 04:24 Albumin 3.6 g/dL (3.9-5) L 09/01/21 04:24 Albumin/Globulin Ratio 1.0 % 09/01/21 04:24 Urine Color Straw (Yellow) 08/30/21 22:56 Urine Turbidity Clear (Clear) 08/30/21 22:56 Urine pH 6.0 (5.0-7.0) 08/30/21 22:56 Ur Specific [place] 1.029 (1.003-1.030) 08/30/21 22:56 Urine Protein 30 mg/dl mg/dL (Negative) 08/30/21 22:56 Urine Glucose (UA) >=500 mg/dL (Negative) 08/30/21 22:56 Urine Ketones 20 mg/dL (Negative) 08/30/21 22:56 Urine Blood Lg (Negative) 08/30/21 22:56 Urine Nitrite Neg (Negative) 08/30/21 22:56 Urine Bilirubin Neg (Negative) 08/30/21 22:56 Urine Urobilinogen < 2.0 mg/dL (<2.0) 08/30/21 22:56 Ur Leukocyte Esterase Neg (Negative) 08/30/21 22:56 Urine WBC (Auto) 6.0 /HPF (0.0-6.0) 08/30/21 22:56 Urine RBC (Auto) 14.0 /HPF (0.0-6.0) 08/30/21 22:56 U Epithel Cells (Auto) 1.0 /HPF (0-13.0) 08/30/21 22:56 Urine Mucus Few /HPF 08/30/21 22:56 Urine Yeast (Budding) Few /HPF 08/30/21 22:56 Urine Creatinine 136.6 mg/dL (0.1-20.0) H 09/01/21 17:40 Urine Sodium 52 mmol/L 09/01/21 17:40 Urine Total Protein 60 mg/dL (5-11.8) H 09/01/21 17:40 Salicylates < 0.3 mg/dL (2.8-20.0) L 08/30/21 17:40 Urine Opiates Screen Presumptive negative 08/30/21 22:56 Urine Methadone Screen Presumptive negative 08/30/21 22:56 Acetaminophen 5.0 ug/mL (10.0-30.0) L 08/30/21 17:40 Ur Barbiturates Screen Presumptive negative 08/30/21 22:56 Ur Phencyclidine Scrn Presumptive negative 08/30/21 22:56 Ur Amphetamines Screen Presumptive negative 08/30/21 22:56 U Benzodiazepines Scrn Presumptive negative 08/30/21 22:56 Urine Cocaine Screen Presumptive negative 08/30/21 22:56 U Marijuana (THC) Screen Presumptive negative 08/30/21 22:56 Drugs of Abuse Note Disclamer 08/30/21 22:56 Plasma/Serum Alcohol < 0.01 % (0-0.07) 08/30/21 17:40 Myers/IV: Voiding Method Indwelling Catheter Active Medications - Current Medications Current Medications: Generic Name Dose Route Start Last Admin Trade Name Freq PRN Reason Stop Dose Admin Acetaminophen 650 mg 08/30/21 20:51 09/01/21 04:13 Acetaminophen 325 Mg Tab PO 650 mg Q4H PRN Administration Pain MILD(1-3)/Fever >100.5/MUÑOZ Dextrose 0 ml 09/01/21 10:01 Dextrose 10% *Hypoglycemia IV PRN PRN Hypoglycemia Hydrochlorothiazide 12.5 mg 09/03/21 10:00 09/03/21 09:34 Hydrochlorothiazide 12.5 Mg Cap PO 12.5 mg QDAY SEAN Administration Insulin Human Isoph/Insulin Regular 30 unit 09/03/21 10:00 09/03/21 10:28 Insulin Nph/Regular 70/30 Inj SUB-Q 30 unit BIDDIAB SEAN Administration Insulin Human Regular 0 units 09/03/21 08:00 09/03/21 08:18 Insulin Regular, Human 100 Units/1 Ml SUB-Q 10 units ACHS SEAN Administration Protocol Lorazepam 2 mg 08/30/21 23:28 09/02/21 19:50 Lorazepam 2 Mg/Ml Vial IV 2 mg Q4H PRN Administration Agitation Lorazepam 1 mg 08/30/21 23:29 08/31/21 04:20 Lorazepam 2 Mg/Ml Vial IV 1 mg Q4H PRN Administration Agitation Losartan Potassium 50 mg 09/03/21 10:00 09/03/21 09:34 Losartan 50 Mg Tab PO 50 mg QDAY SEAN Administration Ondansetron HCl 4 mg 08/30/21 20:51 Ondansetron 4 Mg/2 Ml Inj IV Q8H PRN Nausea And Vomiting Oxycodone/Acetaminophen 1 tab 08/30/21 20:51 Oxycodone /Acetaminophen 5-325mg Tab PO Q6H PRN Pain, Moderate (4-6) Sodium Chloride 10 ml 08/30/21 22:00 09/02/21 21:40 Sodium Chloride 0.9% 10 Ml Flush Syringe IV 10 ml BID SEAN Administration Sodium Chloride 10 ml 08/30/21 20:51 Sodium Chloride 0.9% 10 Ml Flush Syringe IV PRN PRN LINE FLUSH Nutrition/Malnutrition Assess - Dietary Evaluation Nutrition/Malnutrition Findings: Nutrition Notes Start: 08/31/21 16:01 Freq: Status: Active Protocol: Document 08/31/21 16:01 VIVIAN (Rec: 08/31/21 16:09 VIVIAN [id number]) Nutrition Notes Need for Assessment generated from: MD Order,Education Initial or Follow up Brief Note Current Diagnosis Acute Kidney Injury,Diabetes, Hypertension Other Pertinent Diagnosis Metabolic Encelophathy & Acidosis, SIRS, Pneumonia, Hyponatremia. Current Diet NPO (since 08/30 20:52). Height 5 ft 6 in Weight 124.8 kg [place] Body Weight (kg) 59.09 BMI 44.4 Intake Prior to Admission Good Weight change and time frame Pt denies having loss body weight [employer]. Weight Status Morbidly Obese Subjective/Other Information RD consult for Nutrition Education. Pt currently on NPO. Pt still on critical conditions, not a candidate for Nutrition Education at the time, will assess feasibility on F/U. Percent of energy/protein needs met: Pt currently on NPO. Nutrition Intervention Follow-Up By: 09/07/21 Additional Comments Nutrition education will be provided on F/U, if feasible. When pertinent, monitor food tolerance, %PO intake of meals , and BM. <ELEAZAR MORLEY - Last Filed: 09/04/21 07:15> Assessment and Plan Assessment and plan: I saw and evaluated the patient. I agree with the findings and the plan of care as documented in the Nurse Practitioner's~note, with the following corrections and additions. New onset dm, Adjust insulin for better control of BG and discharge in am Hospitalist Physical - Constitutional Vitals: Temp Pulse Resp BP Pulse Ox 98.0 F 98 H 16 106/68 100 09/04/21 05:16 09/04/21 05:16 09/04/21 05:16 09/04/21 05:16 09/04/21 05:16 HEART Score - HEART Score Troponin: Troponin T < 0.010 ng/mL (0.00-0.029) 08/30/21 17:40 Results - Labs CBC & Chem 7: 09/04/21 05:41 09/04/21 05:41 Labs: Laboratory Last Values WBC 9.2 K/mm3 (4.5-11.0) 09/04/21 05:41 RBC 4.43 M/mm3 (3.65-5.03) 09/04/21 05:41 Hgb 11.9 gm/dl (10.1-14.3) 09/04/21 05:41 Hct 35.8 % (30.3-42.9) 09/04/21 05:41 MCV 81 fl (79-97) 09/04/21 05:41 MCH 27 pg (28-32) L 09/04/21 05:41 MCHC 33 % (30-34) 09/04/21 05:41 RDW 18.0 % (13.2-15.2) H 09/04/21 05:41 Plt Count 95 K/mm3 (140-440) L 09/03/21 04:25 Lymph % (Auto) 5.9 % (13.4-35.0) L 08/30/21 17:40 [place] % (Auto) 10.2 % (0.0-7.3) H 08/30/21 17:40 Eos % (Auto) 0.0 % (0.0-4.3) 08/30/21 17:40 Baso % (Auto) 0.3 % (0.0-1.8) 08/30/21 17:40 Lymph # (Auto) 1.0 K/mm3 (1.2-5.4) L 08/30/21 17:40 [place] # (Auto) 1.7 K/mm3 (0.0-0.8) H 08/30/21 17:40 Eos # (Auto) 0.0 K/mm3 (0.0-0.4) 08/30/21 17:40 Baso # (Auto) 0.0 K/mm3 (0.0-0.1) 08/30/21 17:40 Seg Neutrophils % 83.6 % (40.0-70.0) H 08/30/21 17:40 Seg Neutrophils # 13.6 K/mm3 (1.8-7.7) H 08/30/21 17:40 PT 14.9 Sec. (12.2-14.9) 08/30/21 17:40 INR 1.05 (0.87-1.13) 08/30/21 17:40 Sodium 145 mmol/L (137-145) 09/04/21 05:41 Potassium 4.5 mmol/L (3.6-5.0) 09/04/21 05:41 Chloride 109.1 mmol/L (98-107) H 09/04/21 05:41 Carbon Dioxide 19 mmol/L (22-30) L 09/04/21 05:41 Anion Gap 21 mmol/L 09/04/21 05:41 BUN 20 mg/dL (7-17) H 09/04/21 05:41 Creatinine 1.1 mg/dL (0.6-1.2) 09/04/21 05:41 Estimated GFR > 60 ml/min 09/04/21 05:41 BUN/Creatinine Ratio 18 % 09/04/21 05:41 Glucose 449 mg/dL (65-100) H 09/04/21 05:41 POC Glucose 314 mg/dL (70-105) H 09/03/21 21:17 Hemoglobin A1c 13.1 % (4-6) H 09/01/21 04:24 Ketones Quantitative Small (Negative) 08/30/21 17:40 Lactic Acid 2.60 mmol/L (0.7-2.0) H* 09/02/21 04:29 Calcium 8.4 mg/dL (8.4-10.2) 09/04/21 05:41 Phosphorus 4.30 mg/dL (2.5-4.5) D 09/02/21 04:29 Magnesium 2.00 mg/dL (1.7-2.3) 09/02/21 04:29 Total Bilirubin 0.20 mg/dL (0.1-1.2) 09/01/21 04:24 AST 37 units/L (5-40) 09/01/21 04:24 ALT 26 units/L (7-56) 09/01/21 04:24 Alkaline Phosphatase 145 units/L (35-129) H 09/01/21 04:24 Ammonia 18.0 umol/L (25-60) L 08/30/21 17:40 Total Creatine Kinase 203 units/L (30-135) H 08/30/21 17:40 Troponin T < 0.010 ng/mL (0.00-0.029) 08/30/21 17:40 Total Protein 7.1 g/dL (6.3-8.2) D 09/01/21 04:24 Albumin 3.6 g/dL (3.9-5) L 09/01/21 04:24 Albumin/Globulin Ratio 1.0 % 09/01/21 04:24 Urine Color Straw (Yellow) 08/30/21 22:56 Urine Turbidity Clear (Clear) 08/30/21 22:56 Urine pH 6.0 (5.0-7.0) 08/30/21 22:56 Ur Specific [place] 1.029 (1.003-1.030) 08/30/21 22:56 Urine Protein 30 mg/dl mg/dL (Negative) 08/30/21 22:56 Urine Glucose (UA) >=500 mg/dL (Negative) 08/30/21 22:56 Urine Ketones 20 mg/dL (Negative) 08/30/21 22:56 Urine Blood Lg (Negative) 08/30/21 22:56 Urine Nitrite Neg (Negative) 08/30/21 22:56 Urine Bilirubin Neg (Negative) 08/30/21 22:56 Urine Urobilinogen < 2.0 mg/dL (<2.0) 08/30/21 22:56 Ur Leukocyte Esterase Neg (Negative) 08/30/21 22:56 Urine WBC (Auto) 6.0 /HPF (0.0-6.0) 08/30/21 22:56 Urine RBC (Auto) 14.0 /HPF (0.0-6.0) 08/30/21 22:56 U Epithel Cells (Auto) 1.0 /HPF (0-13.0) 08/30/21 22:56 Urine Mucus Few /HPF 08/30/21 22:56 Urine Yeast (Budding) Few /HPF 08/30/21 22:56 Urine Creatinine 136.6 mg/dL (0.1-20.0) H 09/01/21 17:40 Urine Sodium 52 mmol/L 09/01/21 17:40 Urine Total Protein 60 mg/dL (5-11.8) H 09/01/21 17:40 Salicylates < 0.3 mg/dL (2.8-20.0) L 08/30/21 17:40 Urine Opiates Screen Presumptive negative 08/30/21 22:56 Urine Methadone Screen Presumptive negative 08/30/21 22:56 Acetaminophen 5.0 ug/mL (10.0-30.0) L 08/30/21 17:40 Ur Barbiturates Screen Presumptive negative 08/30/21 22:56 Ur Phencyclidine Scrn Presumptive negative 08/30/21 22:56 Ur Amphetamines Screen Presumptive negative 08/30/21 22:56 U Benzodiazepines Scrn Presumptive negative 08/30/21 22:56 Urine Cocaine Screen Presumptive negative 08/30/21 22:56 U Marijuana (THC) Screen Presumptive negative 08/30/21 22:56 Drugs of Abuse Note Disclamer 08/30/21 22:56 Plasma/Serum Alcohol < 0.01 % (0-0.07) 08/30/21 17:40 Myers/IV: Voiding Method Toilet Active Medications - Current Medications Current Medications: Generic Name Dose Route Start Last Admin Trade Name Freq PRN Reason Stop Dose Admin Acetaminophen 650 mg 08/30/21 20:51 09/01/21 04:13 Acetaminophen 325 Mg Tab PO 650 mg Q4H PRN Administration Pain MILD(1-3)/Fever >100.5/MUÑOZ Dextrose 0 ml 09/01/21 10:01 Dextrose 10% *Hypoglycemia IV PRN PRN Hypoglycemia Hydrochlorothiazide 12.5 mg 09/03/21 10:00 09/03/21 09:34 Hydrochlorothiazide 12.5 Mg Cap PO 12.5 mg QDAY SEAN Administration Insulin Human Isoph/Insulin Regular 30 unit 09/03/21 10:00 09/03/21 16:58 Insulin Nph/Regular 70/30 Inj SUB-Q 30 unit BIDDIAB SEAN Administration Insulin Human Regular 0 units 09/03/21 08:00 09/03/21 21:46 Insulin Regular, Human 100 Units/1 Ml SUB-Q 8 units ACHS SEAN Administration Protocol Lorazepam 2 mg 08/30/21 23:28 09/02/21 19:50 Lorazepam 2 Mg/Ml Vial IV 2 mg Q4H PRN Administration Agitation Lorazepam 1 mg 08/30/21 23:29 08/31/21 04:20 Lorazepam 2 Mg/Ml Vial IV 1 mg Q4H PRN Administration Agitation Losartan Potassium 50 mg 09/03/21 10:00 09/03/21 09:34 Losartan 50 Mg Tab PO 50 mg QDAY SEAN Administration Ondansetron HCl 4 mg 08/30/21 20:51 Ondansetron 4 Mg/2 Ml Inj IV Q8H PRN Nausea And Vomiting Oxycodone/Acetaminophen 1 tab 08/30/21 20:51 Oxycodone /Acetaminophen 5-325mg Tab PO Q6H PRN Pain, Moderate (4-6) Sodium Chloride 10 ml 08/30/21 22:00 09/03/21 21:47 Sodium Chloride 0.9% 10 Ml Flush Syringe IV 10 ml BID SEAN Administration Sodium Chloride 10 ml 08/30/21 20:51 Sodium Chloride 0.9% 10 Ml Flush Syringe IV PRN PRN LINE FLUSH Nutrition/Malnutrition Assess - Dietary Evaluation Nutrition/Malnutrition Findings: Nutrition Notes Start: 08/31/21 16:01 Freq: Status: Active Protocol: Document 08/31/21 16:01 VIVIAN (Rec: 08/31/21 16:09 VIVIAN [id number]) Nutrition Notes Need for Assessment generated from: MD Order,Education Initial or Follow up Brief Note Current Diagnosis Acute Kidney Injury,Diabetes, Hypertension Other Pertinent Diagnosis Metabolic Encelophathy & Acidosis, SIRS, Pneumonia, Hyponatremia. Current Diet NPO (since 08/30 20:52). Height 5 ft 6 in Weight 124.8 kg [place] Body Weight (kg) 59.09 BMI 44.4 Intake Prior to Admission Good Weight change and time frame Pt denies having loss body weight [employer]. Weight Status Morbidly Obese Subjective/Other Information RD consult for Nutrition Education. Pt currently on NPO. Pt still on critical conditions, not a candidate for Nutrition Education at the time, will assess feasibility on F/U. Percent of energy/protein needs met: Pt currently on NPO. Nutrition Intervention Follow-Up By: 09/07/21 Additional Comments Nutrition education will be provided on F/U, if feasible. When pertinent, monitor food tolerance, %PO intake of meals , and BM.
[2021-09-04 05:40] VITALS: BP 106/68
[2021-09-04 06:43] LABS: Hematocrit 35.8 % (30.3-42.9); Hemoglobin 11.9 gm/dl (10.1-14.3); Mean Corpuscular HGB Conc 33 % (30-34); Mean Corpuscular Volume 81 fl (79-97); Red Blood Count 4.43 M/mm3 (3.65-5.03)
[2021-09-04 06:44] LABS: BUN/Creatinine Ratio 18; Blood Urea Nitrogen 20 mg/dL (7-17); Calcium 8.4 mg/dL (8.4-10.2); Hemolysis Index 37
[2021-09-04] MEDS ORDERED: INSULIN REGULAR, HUMAN 100 UNITS/1 ML SUB-Q SCH (08:30)
[2021-09-04] MEDS ORDERED: INSULIN NPH/REGULAR 70/30 INJ SUB-Q SCH (09:00)
--- NOTE | 2021-09-04 09:16 | Discharge Summary ---
Providers - Providers Date of Admission: 08/30/21 20:51 Attending physician: ELEAZAR MORLEY MD 08/30/21 20:57 Consult to Dietitian/Nutrition [CONS] Routine Physician Instructions: Reason For Exam: DKA Reason for Consult: Nutrition Recommendations Reason for Consult: Diet education Primary care physician: DIRECTOR OF CARDIAC REHABILITATION Hospitalization Condition: Critical Hospital course: This is a 35-year-old female with hypertension, DM, medical noncompliance and morbid obesity admitted with DKA Neuro: Acute metabolic encephalopathy (resolved), h/o medical noncompliance -Avoid delirium -Reorientation as needed -Maintain sleep-wake cycle -CT head on admission showed diffuse cerebral atrophy, no evidence of acute ischemic injury, hemorrhage or mass Cardiac: h/o HTN -Blood pressure monitoring per protocol -As needed IV labetalol -Start p.o. beta-kira in the a.m. Respiratory: NAD -Pulmonary hygiene -SPO2 monitoring -Supplemental oxygen as needed GI: h/o morbid obesity -24 hours + [id number] -PPI -N.p.o. while on insulin drip -Start BR once appropriate -Encourage lifestyle and dietary modifications upon discharge : Hypernatremia, hyperchloremia, acute kidney injury (resolved) -MARITZA likely secondary to vasomotor nephropathy as evidenced by improvement with IVF -Strict intake and output -Renally dose medications -Avoid nephrotoxic medications -Daily weights -Consider further work-up if worsening -Replete phosphate -FeNa 0.3% -Trend BMP ID: SIRs, lactic acidosis -Presented with leukocytosis, acute kidney injury, lactic acidosis -S/p 7 L bolus -Presents with a lactic acid of 5.1 -Monitor WBC and temperature curve Endo: DKA, h/o DM -CCM consulted, appreciate recommendations -s/p insulin gtt -Accu-Cheks ACHS -Avoid hypoglycemia -SSI -Long acting insulin, titrate as needed -Hemoglobin A1c 13.1 Heme: Leukocytosis, ruled out DVT, thrombocytopenia -Trend CBC -Transfuse hemoglobin less than 7 -Monitor for signs of bleeding -Heparin subcu -DC -Hep panel pending -SCDs to BLE while in bed -right UE tight -RUE dopplar US shows SVT in cephalic vein The high probability of a clinically significant, sudden or life threatening deterioration of the [multi] system(s) required my full and direct attention, intervention and personal management. The aggregate critical care time was [60] minutes. This time is in addition to time spent performing reported procedures but includes the following: [x] Data Review and interpretation [x] Patient assessment and monitoring of vital signs [x] Documentation [x] Medication orders and management History Interval history: This is a 35-year-old female with hypertension, DM, medical noncompliance and morbid obesity who presented to emergency department on 08/30 via EMS who found the patient at her home with urinary incontinence blood sugar via Accu-Chek was read as high after being called by family member who arrived to the house after patient failed to pick it up from school. Arrival to the emergency department patient was in the emergency department patient was found to be tachycardic, tachypneic and had leukocytosis and lactic acidosi and lab work was consistent with DKA. Of note patient's blood glucose on arrival was 1955. Patient was admitted to the hospital service with consult to [facility] for DKA on DKA protocol. 08/31: Patient remains hyperglycemic despite being on over 30 units of insulin, given 10 units IV insulin, maintain on IV fluids of normal saline patient has not met criteria to be switched to dextrose containing IV fluids. Given for LR boluses overnight. Will replete potassium with K-Phos and obtain A1c. Antibiotics stopped. 09/01: remains on insulin gtt, replete phos again today, neuro status better. 09/02: Patient was transitioned off insulin drip to SSI, long-acting insulin and started on a CC diet. Hyponatremia improving. Potassium repleted. Given to LR bolus. 09/03: Patient remains hyperglycemic, tolerating p.o. Increase in long-acting insulin to 70/30 twice daily. Patient will be transferred to the floor today. Hypernatremia slightly worsened we will continue to encourage p.o. intake and monitor BMP. Leukocytosis resolved patient has thrombocytopenia today. Send off hit Disposition: HOME / SELF CARE / HOMELESS Exam - Constitutional Vitals: Temp Pulse Resp BP Pulse Ox 98.0 F 98 H 16 106/68 100 09/04/21 05:16 09/04/21 05:16 09/04/21 05:16 09/04/21 05:16 09/04/21 05:16 Plan Activity: advance as tolerated, fall precautions Diet: low fat Special Instructions: record daily weights, record daily BP diary, record blood sugar diary Care Plan Goals: must be complaint with meds, Lose weight Have yearly eye and feet exam Follow up with: PRIMARY CARE,MD [Primary Care Provider] - 3-5 Days Prescriptions: Losartan [Cozaar] 50 mg PO QDAY #30 tablet Insulin NPH/Regular [NovoLIN 70/30] 50 unit SUB-Q BIDDIAB #10 ml Other Discharge Orders: Glucometer (Amb) Location: None Selected Glucometer supplies[Amb] Location: None Selected
[2021-09-04] MEDS: hydroCHLOROthiazide 12.5 MG CAP PO SCH (09:30)
[2021-09-04] MEDS: LOSARTAN 50 MG TAB PO SCH (09:30)
[2021-09-04] MEDS: INSULIN REGULAR, HUMAN 100 UNITS/1 ML SUB-Q SCH (09:35)
[2021-09-04 10:35] LABS: Platelet Count 49 K/mm3 (140-440)
== END 2021-09-04 10:15 | disposition home or self-care (01) | DRG 637 ==
LOC: ED 17:06 → CC1 20:51 → 3A 09-03 10:45
PROVIDERS: ADMIT Internal Medicine; ATTEND Internal Medicine
DX: E11.10 Type 2 diabetes mellitus with ketoacidosis without coma (principal); G93.41 Metabolic encephalopathy; J18.9 Pneumonia, unspecified organism; N17.9 Acute kidney failure, unspecified; R65.10 Systemic inflammatory response syndrome (SIRS) of non-infectious origin without acute organ dysfunction; E87.1 Hypo-osmolality and hyponatremia; E11.65 Type 2 diabetes mellitus with hyperglycemia; E11.00 Type 2 diabetes mellitus with hyperosmolarity without nonketotic hyperglycemic-hyperosmolar coma (NKHHC); E66.01 Morbid (severe) obesity due to excess calories; Z91.14 Patient's other noncompliance with medication regimen; E87.8 Other disorders of electrolyte and fluid balance, not elsewhere classified; I10 Essential (primary) hypertension; Z20.822 Contact with and (suspected) exposure to COVID-19; D69.6 Thrombocytopenia, unspecified
CPT/HCPCS: 36415; 70450; 71045; 80048; 80053; 80307; 80320; 81001; 82010; 82140; 82550; 82570; 82947; 82962; 83036; 83735; 84100; 84156; 84300; 84484; 85025; 85027; 85610; 93970; G0378; J3480; J3490; J7510; Q0162; Q0177; Q9967; G0480; J0456; J0696; J1170; J1630; J1644; J1815; J2060; J7030; J7040; J7050; J7070; J7120

== ENCOUNTER 2021-09-05 16:31 | Inpatient (IN) | payer OTHER ==
[2021-09-05] MEDS ORDERED: SODIUM CHLORIDE 0.9% 1000 ML 1,000 ML IV ONE ×2 (16:54→16:57)
[2021-09-05] MEDS ORDERED: DEXTROSE 50% IN WATER (25GM) 50 ML SYRINGE IV PRN (16:54)
--- NOTE | 2021-09-05 17:03 | Emergency Department Report ---
ED Altered Mental Status HPI - General Chief Complaint: Hyperglycemia Stated Complaint: HYPERGLYCEMIA Time Seen by Provider: 09/05/21 16:50 Source: EMS, old records reviewed Mode of arrival: Stretcher Limitations: Altered Mental Status - History of Present Illness Initial Comments: 35-year-old female the past medical history of hypertension, morbid obesity, and diabetes with history noncompliance presents to the hospital with alteration mental status. As per medical record review patient was admitted here August 30 until September 04 for DKA and just discharged yesterday afternoon. Exact onset of alteration in mental status unclear. As per EMS she was found by either a family member or neighbor to be altered at 9 AM and presented to the ER at 4:30 PM. Patient is extremely altered and unable to provide any history of present illness As per medical record review of last admission is also notes that patient had a leukocytosis (thought to be due to SIRS) which improved. She did spike a fever during admission. And also was having progressively worsening thrombocytopenia (HIT panel sent as per d/c summary). - Related Data Previous Rx's Medication Instructions Recorded Last Taken Type Insulin NPH/Regular [NovoLIN 70/30] 50 unit SUB-Q BIDDIAB #10 ml 09/04/21 Unknown Rx Insulin Regular, Human [HumuLIN R] 0 unit SQ AC #1 vial 09/04/21 Unknown Rx Losartan [Cozaar] 50 mg PO QDAY #30 tablet 09/04/21 Unknown Rx Allergies Allergy/AdvReac Type Severity Reaction Status Date / Time No Known Allergies Allergy Verified 08/30/21 17:10 ED Review of Systems ROS: Stated complaint: HYPERGLYCEMIA Other details as noted in HPI Comment: All other systems reviewed and negative ED Past Medical Hx - Past Medical History Hx Hypertension: Yes Hx Diabetes: Yes - Social History Smoking Status: Unknown if ever smoked - Medications Home Medications: Home Medications Medication Instructions Recorded Confirmed Last Taken Type Insulin NPH/Regular [NovoLIN 70/30] 50 unit SUB-Q BIDDIAB #10 ml 09/04/21 Unknown Rx Insulin Regular, Human [HumuLIN R] 0 unit SQ AC #1 vial 09/04/21 Unknown Rx Losartan [Cozaar] 50 mg PO QDAY #30 tablet 09/04/21 Unknown Rx ED Physical Exam - General Limitations: Altered Mental Status - Other Other exam information: General: Altered Head: Atraumatic Eyes: normal appearance ENT: Dry mucous members Neck: Normal appearance Chest: Clear to auscultation bilaterally CV: Regular rate and rhythm Abdomen: Soft, obese Back: Normal inspection Extremity: Normal inspection, full range of motion Neuro: Patient moans make incomprehensible sounds, does move extremities in resp onse to deep painful stimuli. GCS E 2, M 5, V 2: 9 Psych: altered Skin: Mild bruising to arms likely from recent IV sticks during recent admission ED Course Vital Signs 09/05/21 09/05/21 09/05/21 16:34 17:30 17:53 Temperature 97.3 F L Pulse Rate 91 H 89 Respiratory 30 H 36 H 36 H Rate Blood Pressure Blood Pressure 114/91 100/43 [Left] O2 Sat by Pulse 97 100 90 Oximetry 09/05/21 09/05/21 09/05/21 18:03 18:29 18:30 Temperature 96.2 F L Pulse Rate 89 89 Respiratory 22 24 Rate Blood Pressure 106/50 Blood Pressure [Left] O2 Sat by Pulse 100 100 Oximetry 09/05/21 09/05/21 09/05/21 18:45 19:01 19:15 Temperature Pulse Rate 90 89 88 Respiratory 34 H 34 H 30 H Rate Blood Pressure 106/50 106/50 106/50 Blood Pressure [Left] O2 Sat by Pulse 100 100 100 Oximetry - Reevaluation(s) Reevaluation #1: 09/05/21 18:54 lab results release initially with a potassium 3.1 therefore IV potassium ordered. All labs were then canceled with requested redraw given that results showed a glucose greater than 2500. Repeat blood draw pending. Patient ABG also revealed significant hypoxia on room air. Questionable venous stick. Repeat ABG also requested. Patient was placed on a 50% Ventimask - Consultations Consultation #1: 09/05/21 20:25 dr Hernandez informed of admission (critical care MD) - Lab Data Result diagrams: 09/05/21 17:10 09/05/21 18:56 Lab Results 09/05/21 09/05/21 09/05/21 Range/Units 16:49 17:10 17:10 WBC (4.5-11.0) K/mm3 RBC (3.65-5.03) M/mm3 Hgb (10.1-14.3) gm/dl Hct (30.3-42.9) % MCV (79-97) fl MCH (28-32) pg MCHC (30-34) % RDW (13.2-15.2) % Plt Count (140-440) K/mm3 Lymph % (Auto) (13.4-35.0) % Donley % (Auto) (0.0-7.3) % Eos % (Auto) (0.0-4.3) % Baso % (Auto) (0.0-1.8) % Lymph # (Auto) (1.2-5.4) K/mm3 Donley # (Auto) (0.0-0.8) K/mm3 Eos # (Auto) (0.0-0.4) K/mm3 Baso # (Auto) (0.0-0.1) K/mm3 Seg Neutrophils % (40.0-70.0) % Seg Neutrophils # (1.8-7.7) K/mm3 ABG pH (7.350-7.450) pH Units POC ABG pCO2 (32.0-48.0) mmHg ABG pCO2 mm Hg POC ABG pO2 (83-108) mmHg ABG pO2 (80.0-90.0) mm Hg POC ABG HCO3 ABG HCO3 (20.0-26.0) mmol/L ABG O2 Saturation (95.0-99.0) % ABG O2 Content (0.0-44) POC ABG Base Excess ABG Base Excess (-2.0-3.0) mmol/L ABG Hemoglobin (12.0-16.0) gm/dl ABG Oxyhemoglobin (94-98) ABG Carboxyhemoglobin (0.0-5.0) % ABG Methemoglobin (0.0-1.5) % VBG pH (7.320-7.420) Oxyhemoglobin (95.0-99.0) % Carboxyhemoglobin (0.5-1.5) FiO2 % FiO2 % Sodium Potassium Chloride Carbon Dioxide Anion Gap BUN Creatinine Estimated GFR BUN/Creatinine Ratio Glucose POC Glucose > 600 H (70-105) mg/dL Calcium Phosphorus 5.10 H (2.5-4.5) mg/dL Magnesium 3.10 H (1.7-2.3) mg/dL Total Bilirubin AST ALT Alkaline Phosphatase Total Creatine Kinase (30-135) units/L CK-MB (CK-2) (0.0-4.0) ng/mL CK-MB (CK-2) Rel Index (0-4) Troponin T (0.00-0.029) ng/mL Total Protein Albumin Albumin/Globulin Ratio HCG, Quant < 2 (0-4) mIU/mL Plasma/Serum Alcohol (0-0.07) % 09/05/21 09/05/21 09/05/21 Range/Units 17:10 17:10 17:10 WBC 10.2 (4.5-11.0) K/mm3 RBC 3.33 L (3.65-5.03) M/mm3 Hgb 9.0 L (10.1-14.3) gm/dl Hct 40.7 (30.3-42.9) % MCV 122 H (79-97) fl MCH 27 L (28-32) pg MCHC 22 L (30-34) % RDW 19.1 H (13.2-15.2) % Plt Count 163 D (140-440) K/mm3 Lymph % (Auto) 4.8 L (13.4-35.0) % Donley % (Auto) 13.5 H (0.0-7.3) % Eos % (Auto) 0.0 (0.0-4.3) % Baso % (Auto) 0.5 (0.0-1.8) % Lymph # (Auto) 0.5 L (1.2-5.4) K/mm3 Donley # (Auto) 1.4 H (0.0-0.8) K/mm3 Eos # (Auto) 0.0 (0.0-0.4) K/mm3 Baso # (Auto) 0.1 (0.0-0.1) K/mm3 Seg Neutrophils % 81.2 H (40.0-70.0) % Seg Neutrophils # 8.3 H (1.8-7.7) K/mm3 ABG pH 7.135 L* (7.350-7.450) pH Units POC ABG pCO2 (32.0-48.0) mmHg ABG pCO2 50.8 mm Hg POC ABG pO2 (83-108) mmHg ABG pO2 50.4 L (80.0-90.0) mm Hg POC ABG HCO3 ABG HCO3 16.4 L (20.0-26.0) mmol/L ABG O2 Saturation 68.2 L (95.0-99.0) % ABG O2 Content 8.7 (0.0-44) POC ABG Base Excess ABG Base Excess -12.3 L (-2.0-3.0) mmol/L ABG Hemoglobin 9.4 L (12.0-16.0) gm/dl ABG Oxyhemoglobin (94-98) ABG Carboxyhemoglobin 3.8 (0.0-5.0) % ABG Methemoglobin 0.6 (0.0-1.5) % VBG pH 7.126 L* (7.320-7.420) Oxyhemoglobin 65.2 L (95.0-99.0) % Carboxyhemoglobin (0.5-1.5) FiO2 21 % FiO2 % Sodium TNR Potassium TNR Chloride TNR Carbon Dioxide TNR Anion Gap TNR BUN TNR Creatinine TNR Estimated GFR TNR BUN/Creatinine Ratio TNR Glucose TNR POC Glucose (70-105) mg/dL Calcium TNR Phosphorus (2.5-4.5) mg/dL Magnesium (1.7-2.3) mg/dL Total Bilirubin TNR AST TNR ALT TNR Alkaline Phosphatase TNR Total Creatine Kinase (30-135) units/L CK-MB (CK-2) (0.0-4.0) ng/mL CK-MB (CK-2) Rel Index (0-4) Troponin T (0.00-0.029) ng/mL Total Protein TNR Albumin TNR Albumin/Globulin Ratio TNR HCG, Quant (0-4) mIU/mL Plasma/Serum Alcohol (0-0.07) % 09/05/21 09/05/21 09/05/21 Range/Units 17:10 18:00 18:18 WBC (4.5-11.0) K/mm3 RBC (3.65-5.03) M/mm3 Hgb (10.1-14.3) gm/dl Hct (30.3-42.9) % MCV (79-97) fl MCH (28-32) pg MCHC (30-34) % RDW (13.2-15.2) % Plt Count (140-440) K/mm3 Lymph % (Auto) (13.4-35.0) % Donley % (Auto) (0.0-7.3) % Eos % (Auto) (0.0-4.3) % Baso % (Auto) (0.0-1.8) % Lymph # (Auto) (1.2-5.4) K/mm3 Donley # (Auto) (0.0-0.8) K/mm3 Eos # (Auto) (0.0-0.4) K/mm3 Baso # (Auto) (0.0-0.1) K/mm3 Seg Neutrophils % (40.0-70.0) % Seg Neutrophils # (1.8-7.7) K/mm3 ABG pH (7.350-7.450) pH Units POC ABG pCO2 (32.0-48.0) mmHg ABG pCO2 mm Hg POC ABG pO2 (83-108) mmHg ABG pO2 (80.0-90.0) mm Hg POC ABG HCO3 ABG HCO3 (20.0-26.0) mmol/L ABG O2 Saturation (95.0-99.0) % ABG O2 Content (0.0-44) POC ABG Base Excess ABG Base Excess (-2.0-3.0) mmol/L ABG Hemoglobin (12.0-16.0) gm/dl ABG Oxyhemoglobin (94-98) ABG Carboxyhemoglobin (0.0-5.0) % ABG Methemoglobin (0.0-1.5) % VBG pH (7.320-7.420) Oxyhemoglobin (95.0-99.0) % Carboxyhemoglobin (0.5-1.5) FiO2 % FiO2 % Sodium Potassium Chloride Carbon Dioxide Anion Gap BUN Creatinine Estimated GFR BUN/Creatinine Ratio Glucose POC Glucose > 600 H (70-105) mg/dL Calcium Phosphorus (2.5-4.5) mg/dL Magnesium (1.7-2.3) mg/dL Total Bilirubin AST ALT Alkaline Phosphatase Total Creatine Kinase 1772 H (30-135) units/L CK-MB (CK-2) 18.7 H (0.0-4.0) ng/mL CK-MB (CK-2) Rel Index 1.0 (0-4) Troponin T < 0.010 (0.00-0.029) ng/mL Total Protein Albumin Albumin/Globulin Ratio HCG, Quant (0-4) mIU/mL Plasma/Serum Alcohol < 0.01 (0-0.07) % 09/05/21 09/05/21 09/05/21 Range/Units 18:56 18:56 19:30 WBC (4.5-11.0) K/mm3 RBC (3.65-5.03) M/mm3 Hgb (10.1-14.3) gm/dl Hct (30.3-42.9) % MCV (79-97) fl MCH (28-32) pg MCHC (30-34) % RDW (13.2-15.2) % Plt Count (140-440) K/mm3 Lymph % (Auto) (13.4-35.0) % Donley % (Auto) (0.0-7.3) % Eos % (Auto) (0.0-4.3) % Baso % (Auto) (0.0-1.8) % Lymph # (Auto) (1.2-5.4) K/mm3 Donley # (Auto) (0.0-0.8) K/mm3 Eos # (Auto) (0.0-0.4) K/mm3 Baso # (Auto) (0.0-0.1) K/mm3 Seg Neutrophils % (40.0-70.0) % Seg Neutrophils # (1.8-7.7) K/mm3 ABG pH 7.104 L (7.350-7.450) pH Units POC ABG pCO2 48.1 H (32.0-48.0) mmHg ABG pCO2 mm Hg POC ABG pO2 142.6 H (83-108) mmHg ABG pO2 (80.0-90.0) mm Hg POC ABG HCO3 14.7 ABG HCO3 (20.0-26.0) mmol/L ABG O2 Saturation 98.3 (95.0-99.0) % ABG O2 Content (0.0-44) POC ABG Base Excess -14.2 ABG Base Excess (-2.0-3.0) mmol/L ABG Hemoglobin 9.4 L (12.0-16.0) gm/dl ABG Oxyhemoglobin 97.3 (94-98) ABG Carboxyhemoglobin (0.0-5.0) % ABG Methemoglobin 0.3 (0.0-1.5) % VBG pH (7.320-7.420) Oxyhemoglobin (95.0-99.0) % Carboxyhemoglobin 0.7 (0.5-1.5) FiO2 % FiO2 % 50 Sodium 129 L D 130 L Potassium 3.0 L D 3.1 L Chloride 96.7 L 97.6 L Carbon Dioxide 14 L 14 L Anion Gap 21 22 BUN 35 H 36 H Creatinine 2.9 H D 2.9 H Estimated GFR 22 22 BUN/Creatinine Ratio 12 12 Glucose 2321 H* 2304 H* POC Glucose (70-105) mg/dL Calcium 7.2 L 7.2 L Phosphorus (2.5-4.5) mg/dL Magnesium (1.7-2.3) mg/dL Total Bilirubin 0.20 AST 65 H ALT 73 H Alkaline Phosphatase 182 H Total Creatine Kinase (30-135) units/L CK-MB (CK-2) (0.0-4.0) ng/mL CK-MB (CK-2) Rel Index (0-4) Troponin T (0.00-0.029) ng/mL Total Protein 5.4 L D Albumin 2.9 L Albumin/Globulin Ratio 1.2 HCG, Quant (0-4) mIU/mL Plasma/Serum Alcohol (0-0.07) % - EKG Data -: EKG Interpreted by [facility] EKG shows normal: sinus rhythm, intervals (qtc 540), QRS complexes (qrsd 108), ST-T waves Rate: normal - Radiology Data Radiology results: report reviewed CT head/brain wo con INDICATION / CLINICAL INFORMATION: 35 years Female; ams. TECHNIQUE: Routine CT head without contrast. All CT scans at this location are performed using CT dose reduction for ALARA by means of automated exposure control. Suboptimal patient positioning. COMPARISON: 08/30/2021 FINDINGS: BRAIN / INTRACRANIAL CONTENTS: No acute hemorrhage, mass effect, midline shift, hydrocephalus, or acute, large territorial infarct. No signs of significant atrophy or chronic infarct. No significant white matter abnormality seen. CRANIOCERVICAL JUNCTION: No significant abnormality. ORBITS: No significant abnormality of visualized orbits. SINUSES / MASTOIDS: Visualized paranasal sinuses and mastoid air cells are essentially clear. ADDITIONAL FINDINGS: There may been prior surgery in the region of the right parotid gland. Please clinically correlate. IMPRESSION: 1. No focal mass, hemorrhage, hydrocephalus, or acute, large territorial infarct. CHEST 1 VIEW 09/05/2021 4:59 PM INDICATION / CLINICAL INFORMATION: ams. COMPARISON: 08/30/2019 FINDINGS: SUPPORT DEVICES: None. HEART / MEDIASTINUM: No significant abnormality. LUNGS / PLEURA: There are low lung volumes bilaterally. Airspace opacity in the medial right lung base has improved. No pneumothorax. ADDITIONAL FINDINGS: No significant additional findings. IMPRESSION: 1. There are low lung volumes bilaterally. There has been interval improvement in airspace opacity in the right lung base. - Medical Decision Making 35-year-old female presents to the hospital once again with alteration mental status, severe hyperglycemia and acidosis secondary to DKA. Insulin drip initiated once potassium level released. Patient required supplemental potassium infusion. Acute renal insufficiency noted. Patient also has hypoxia with acute respiratory failure requiring 50% Ventimask. ABG results revealed hypoxia with metabolic acidosis. Insulin drip delayed due to me for repeat blood draw. Patient was just discharged yesterday with similar presentation with history of noncompliance. IVF initiated for elevated ck and dka. Critical Care Time: Yes Critical care time in (mins) excluding proc time.: 35 Critical care attestation.: If time is entered above; I have spent that time in minutes in the direct care of this critically ill patient, excluding procedure time. Critical Care Time: 35 Minutes of critical care time excluding procedures were used in the care of the patient. I came immediately to the bedside upon patient's arrival. I obtained history from EMS at the bedside. I discussed treatment plan with the nursing team members. I reviewed electronic record. . Patient required multiple interventions and reassessments. Spoke with hospitalist and critical care attending. ED Disposition Clinical Impression: DKA (diabetic ketoacidosis), MARITZA (acute kidney injury), Hypokalemia, Acute respiratory failure with hypoxemia, Rhabdomyolysis Disposition: ADMITTED INPATIENT Is pt being admited?: Yes Condition: Stable Time of Disposition: 19:43
--- NOTE | 2021-09-05 17:26 | XRay Report ---
CHEST 1 VIEW 09/05/2021 4:59 PM INDICATION / CLINICAL INFORMATION: ams. COMPARISON: 08/30/2019 FINDINGS: SUPPORT DEVICES: None. HEART / MEDIASTINUM: No significant abnormality. LUNGS / PLEURA: There are low lung volumes bilaterally. Airspace opacity in the medial right lung bas e has improved. No pneumothorax. ADDITIONAL FINDINGS: No significant additional findings. IMPRESSION: 1. There are low lung volumes bilaterally. There has been interval improvement in airspace opacity in the right lung base. Signer Name: Rudy Wilcox MD Signed: 09/05/2021 5:21 PM Workstation Name: [id number]
[2021-09-05 17:44] LABS: Basophils # (Auto) 0.1 K/mm3 (0.0-0.1); Basophils % (Auto) 0.5 % (0.0-1.8); Hematocrit 40.7 % (30.3-42.9); Lymphocytes # (Auto) 0.5 K/mm3 (1.2-5.4); Lymphocytes % (Auto) 4.8 % (13.4-35.0); Mean Corpuscular HGB Conc 22 % (30-34); Mean Corpuscular Volume 122 fl (79-97); Monocytes # (Auto) 1.4 K/mm3 (0.0-0.8); Monocytes % (Auto) 13.5 % (0.0-7.3); Platelet Count 163 K/mm3 (140-440); Red Blood Count 3.33 M/mm3 (3.65-5.03); Red Cell Distribution Width 19.1 % (13.2-15.2)
--- NOTE | 2021-09-05 17:55 | Cat Scan Report ---
CT head/brain wo con INDICATION / CLINICAL INFORMATION: 35 years Female; ams. TECHNIQUE: Routine CT head without contrast. All CT scans at this location are performed using CT dos e reduction for ALARA by means of automated exposure control. Suboptimal patient positioning. COMPARISON: 08/30/2021 FINDINGS: BRAIN / INTRACRANIAL CONTENTS: No acute hemorrhage, mass effect, midline shift, hydrocephalus, or acu te, large territorial infarct. No signs of significant atrophy or chronic infarct. No significant whi te matter abnormality seen. CRANIOCERVICAL JUNCTION: No significant abnormality. ORBITS: No significant abnormality of visualized orbits. SINUSES / MASTOIDS: Visualized paranasal sinuses and mastoid air cells are essentially clear. ADDITIONAL FINDINGS: There may been prior surgery in the region of the right parotid gland. Please cl inically correlate. IMPRESSION: 1. No focal mass, hemorrhage, hydrocephalus, or acute, large territorial infarct. Signer Name: Roman Panda MD, III Signed: 09/05/2021 5:51 PM Workstation Name: [id number]
[2021-09-05 17:58] LABS: ABG Base Excess -12.3 mmol/L (-2.0-3.0); ABG HCO3 16.4 mmol/L (20.0-26.0); ABG Methemoglobin 0.6 % (0.0-1.5); ABG Oxygen Saturation 68.2 % (95.0-99.0); ABG PCO2 50.8 mm Hg; ABG PO2 50.4 mm Hg (80.0-90.0)
[2021-09-05] MEDS ORDERED: INSULIN REGULAR, HUMAN 100 UNITS in SODIUM CHLORIDE 0.9% 99 ML IV SCH (18:00)
[2021-09-05 18:16] LABS: ABG PH 7.135 pH Units (7.350-7.450)
[2021-09-05 18:18] LABS: VEN PH 7.126 (7.320-7.420)
[2021-09-05 18:34] LABS: BUN/Creatinine Ratio TNR; Blood Urea Nitrogen TNR mg/dL (7-17); Calcium TNR mg/dL (8.4-10.2)
[2021-09-05 18:35] LABS: Alanine Aminotransferase TNR units/L (7-56); Albumin TNR g/dL (3.9-5); Hemolysis Index TNR
[2021-09-05] MEDS: POTASSIUM CHLORIDE 10 MEQ 10 MEQ/100 ML BAG IV SCH ×4 (19:00→22:00)
[2021-09-05 19:08] LABS: Creatine Kinase MB 18.7 ng/mL (0.0-4.0)
[2021-09-05 19:17] LABS: Calcium 7.2 mg/dL (8.4-10.2)
[2021-09-05 19:22] LABS: Albumin 2.9 g/dL (3.9-5); Calcium 7.2 mg/dL (8.4-10.2)
[2021-09-05] MEDS ORDERED: SODIUM CHLORIDE 0.9% 1000 ML 3,000 ML IV ONE (19:44)
[2021-09-05] MEDS ORDERED: oxyCODONE /ACETAMINOPHEN 5-325MG TAB PO PRN (19:44)
[2021-09-05] MEDS ORDERED: HYDROmorphone 1 MG/1 ML INJ IV PRN (19:44)
[2021-09-05] MEDS ORDERED: ALBUTEROL 2.5 MG/3 ML NEBU IH PRN (19:44)
[2021-09-05] MEDS ORDERED: ACETAMINOPHEN 325 MG TAB PO PRN (19:44)
--- NOTE | 2021-09-05 19:48 | History and Physical Report ---
History of Present Illness Chief complaint: Confused History of present illness: 35 YO Female with SMO, Obesity Hypoventilation Syndrome, DM, Medication Noncompliance, HTN presents ED for evaluation. Patient is confused with diminished cognition is unable to provide history at the time my evaluation. Patient history brought in by EMS staff, ED staff, as well as the patient family who was made available by telephone for interview. As per family the patient was found to be confused with decreased responsiveness at 0900 hrs. this morning. EMS was notified and upon arrival the patient was found to be in distress and subsequent transported to [facility] for further care and evaluation of the aforementioned symptoms. The patient was seen and evaluated in the emergency department. All lab and imaging studies reviewed. Patient found to have DKA complicated by metabolic encephalopathy, acute kidney injury, rhabdomy olysis, and hyponatremia. Patient symptoms suspected secondary to medication noncompliance and dietary noncompliance. Patient admitted to ICU and initiated on DKA protocol. Patient is confused with diminished cognition but has a positive gag reflex and is able to protect her airway without difficulty. Prior admission on 08/30/2021 reviewed. All medication listed at time of admission has been reconciled. Advanced care planning conducted in ED. Past History Past Medical History: diabetes, hypertension, other (See HPI) Past Surgical History: No surgical history, Other (Reviewed) Social history: single. denies: smoking, alcohol abuse, prescription drug abuse Family history: diabetes, hypertension Medications and Allergies Allergies Allergy/AdvReac Type Severity Reaction Status Date / Time No Known Allergies Allergy Verified 08/30/21 17:10 Home Medications Medication Instructions Recorded Confirmed Last Taken Type Insulin NPH/Regular [NovoLIN 70/30] 50 unit SUB-Q BIDDIAB #10 ml 09/04/21 Unknown Rx Insulin Regular, Human [HumuLIN R] 0 unit SQ AC #1 vial 09/04/21 Unknown Rx Losartan [Cozaar] 50 mg PO QDAY #30 tablet 09/04/21 Unknown Rx Active Meds: Active Medications Dextrose (Dextrose 50% In Water (25gm) 50 Ml Syringe) 0 ml IV Q30MIN PRN; Protocol PRN Reason: Hypoglycemia Insulin Human Regular 100 (units/ Sodium Chloride) 100 mls @ 1 mls/hr IV TITR SEAN; Protocol Potassium Chloride (Kcl 10meq/100ml) 10 meq in 100 mls @ 100 mls/hr IV Q1H SEAN Stop: 09/05/21 22:59 Review of Systems ROS unobtainable: due to mental status Exam - Constitutional Vitals: Temp Pulse Resp BP Pulse Ox 96.2 F L 88 30 H 106/50 100 09/05/21 18:03 09/05/21 19:15 09/05/21 19:15 09/05/21 19:15 09/05/21 19:15 General appearance: Present: mild distress, obese - EENT Eyes: Present: PERRL ENT: clear oral mucosa, hearing decreased - Neck Neck: Present: supple, normal ROM - Respiratory Respiratory effort: normal Respiratory: bilateral: CTA - Cardiovascular Rhythm: other (Tachycardia) - Extremities Extremities: pulses symmetrical, No edema Peripheral Pulses: within normal limits - Abdominal General gastrointestinal: Present: soft, non-tender, non-distended, normal bowel sounds Female genitourinary: Present: normal - Musculoskeletal Musculoskeletal: generalized weakness - Psychiatric Psychiatric: no appropriate mood/affect, no intact judgment & insight, no memory intact - Neurologic Neurologic: CNII-XII intact, no focal deficits, moves all extremities, no gait normal HEART Score - HEART Score Troponin: Troponin T < 0.010 ng/mL (0.00-0.029) 09/05/21 18:00 Results - Labs CBC & Chem 7: 09/05/21 17:10 09/05/21 20:02 Labs: Abnormal lab results 09/05/21 09/05/21 09/05/21 Range/Units 16:49 17:10 17:10 RBC 3.33 L (3.65-5.03) M/mm3 Hgb 9.0 L (10.1-14.3) gm/dl MCV 122 H (79-97) fl MCH 27 L (28-32) pg MCHC 22 L (30-34) % RDW 19.1 H (13.2-15.2) % Lymph % (Auto) 4.8 L (13.4-35.0) % [place] % (Auto) 13.5 H (0.0-7.3) % Lymph # (Auto) 0.5 L (1.2-5.4) K/mm3 [place] # (Auto) 1.4 H (0.0-0.8) K/mm3 Seg Neutrophils % 81.2 H (40.0-70.0) % Seg Neutrophils # 8.3 H (1.8-7.7) K/mm3 ABG pH (7.350-7.450) pH Units POC ABG pCO2 (32.0-48.0) mmHg POC ABG pO2 (83-108) mmHg ABG pO2 (80.0-90.0) mm Hg ABG HCO3 (20.0-26.0) mmol/L ABG O2 Saturation (95.0-99.0) % ABG Base Excess (-2.0-3.0) mmol/L ABG Hemoglobin (12.0-16.0) gm/dl VBG pH (7.320-7.420) Oxyhemoglobin (95.0-99.0) % Sodium (137-145) mmol/L Potassium (3.6-5.0) mmol/L Chloride (98-107) mmol/L Carbon Dioxide (22-30) mmol/L BUN (7-17) mg/dL Creatinine (0.6-1.2) mg/dL Glucose (65-100) mg/dL POC Glucose > 600 H (70-105) mg/dL Calcium (8.4-10.2) mg/dL Phosphorus 5.10 H (2.5-4.5) mg/dL Magnesium 3.10 H (1.7-2.3) mg/dL AST (5-40) units/L ALT (7-56) units/L Alkaline Phosphatase (35-129) units/L Total Creatine Kinase (30-135) units/L CK-MB (CK-2) (0.0-4.0) ng/mL Total Protein (6.3-8.2) g/dL Albumin (3.9-5) g/dL 09/05/21 09/05/21 09/05/21 Range/Units 17:10 18:00 18:18 RBC (3.65-5.03) M/mm3 Hgb (10.1-14.3) gm/dl MCV (79-97) fl MCH (28-32) pg MCHC (30-34) % RDW (13.2-15.2) % Lymph % (Auto) (13.4-35.0) % [place] % (Auto) (0.0-7.3) % Lymph # (Auto) (1.2-5.4) K/mm3 [place] # (Auto) (0.0-0.8) K/mm3 Seg Neutrophils % (40.0-70.0) % Seg Neutrophils # (1.8-7.7) K/mm3 ABG pH 7.135 L* (7.350-7.450) pH Units POC ABG pCO2 (32.0-48.0) mmHg POC ABG pO2 (83-108) mmHg ABG pO2 50.4 L (80.0-90.0) mm Hg ABG HCO3 16.4 L (20.0-26.0) mmol/L ABG O2 Saturation 68.2 L (95.0-99.0) % ABG Base Excess -12.3 L (-2.0-3.0) mmol/L ABG Hemoglobin 9.4 L (12.0-16.0) gm/dl VBG pH 7.126 L* (7.320-7.420) Oxyhemoglobin 65.2 L (95.0-99.0) % Sodium (137-145) mmol/L Potassium (3.6-5.0) mmol/L Chloride (98-107) mmol/L Carbon Dioxide (22-30) mmol/L BUN (7-17) mg/dL Creatinine (0.6-1.2) mg/dL Glucose (65-100) mg/dL POC Glucose > 600 H (70-105) mg/dL Calcium (8.4-10.2) mg/dL Phosphorus (2.5-4.5) mg/dL Magnesium (1.7-2.3) mg/dL AST (5-40) units/L ALT (7-56) units/L Alkaline Phosphatase (35-129) units/L Total Creatine Kinase 1772 H (30-135) units/L CK-MB (CK-2) 18.7 H (0.0-4.0) ng/mL Total Protein (6.3-8.2) g/dL Albumin (3.9-5) g/dL 09/05/21 09/05/21 09/05/21 Range/Units 18:56 18:56 19:30 RBC (3.65-5.03) M/mm3 Hgb (10.1-14.3) gm/dl MCV (79-97) fl MCH (28-32) pg MCHC (30-34) % RDW (13.2-15.2) % Lymph % (Auto) (13.4-35.0) % [place] % (Auto) (0.0-7.3) % Lymph # (Auto) (1.2-5.4) K/mm3 [place] # (Auto) (0.0-0.8) K/mm3 Seg Neutrophils % (40.0-70.0) % Seg Neutrophils # (1.8-7.7) K/mm3 ABG pH 7.104 L (7.350-7.450) pH Units POC ABG pCO2 48.1 H (32.0-48.0) mmHg POC ABG pO2 142.6 H (83-108) mmHg ABG pO2 (80.0-90.0) mm Hg ABG HCO3 (20.0-26.0) mmol/L ABG O2 Saturation (95.0-99.0) % ABG Base Excess (-2.0-3.0) mmol/L ABG Hemoglobin 9.4 L (12.0-16.0) gm/dl VBG pH (7.320-7.420) Oxyhemoglobin (95.0-99.0) % Sodium 129 L D 130 L (137-145) mmol/L Potassium 3.0 L D 3.1 L (3.6-5.0) mmol/L Chloride 96.7 L 97.6 L (98-107) mmol/L Carbon Dioxide 14 L 14 L (22-30) mmol/L BUN 35 H 36 H (7-17) mg/dL Creatinine 2.9 H D 2.9 H (0.6-1.2) mg/dL Glucose 2321 H* 2304 H* (65-100) mg/dL POC Glucose (70-105) mg/dL Calcium 7.2 L 7.2 L (8.4-10.2) mg/dL Phosphorus (2.5-4.5) mg/dL Magnesium (1.7-2.3) mg/dL AST 65 H (5-40) units/L ALT 73 H (7-56) units/L Alkaline Phosphatase 182 H (35-129) units/L Total Creatine Kinase (30-135) units/L CK-MB (CK-2) (0.0-4.0) ng/mL Total Protein 5.4 L D (6.3-8.2) g/dL Albumin 2.9 L (3.9-5) g/dL Assessment and Plan - Patient Problems (1) DKA (diabetic ketoacidosis) Current Visit: Yes Status: Acute Qualifiers: Diabetes mellitus type: type 1 Plan to address problem: DKA protocol: Admit to ICU, IV fluid resuscitation therapy, serial BMP, monitor anion gap, insulin drip, potassium repletion as per protocol, monitor fluid balance, critical care team consulted in ED. The high probability of a clinically significant, sudden or life threatening deterioration of the [endocrine, pulmonary, renal, neuro] system(s) required my full and direct attention, intervention and personal management. The aggregate critical care time was [95] minutes. This time is in addition to time spent performing reported procedures but includes the following: [x] Data Review and interpretation [x] Patient assessment and monitoring of vital signs [x] Documentation [x] Medication orders and management (2) Obesity hypoventilation syndrome Current Visit: Yes Status: Acute Plan to address problem: Balanced diet, increase physical activity discharge, outpatient pulmonary follow-up for sleep study. Outpatient bariatric surgery evaluation. (3) Hyponatremia syndrome Current Visit: Yes Status: Acute Plan to address problem: BMP, IV fluid resuscitation therapy, repeat BMP in a.m. (4) MARITZA (acute kidney injury) Current Visit: Yes Status: Acute Plan to address problem: IV fluid resuscitation therapy, BMP, repeat BMP to monitor serum creatinine as well as GFR. Monitor fluid balance. (5) Rhabdomyolysis Current Visit: Yes Status: Acute Qualifiers: Encounter type: initial encounter Plan to address problem: IV fluid resuscitation therapy, CK level, repeat CK level in a.m. IV fluid resuscitation therapy. IV bicarbonate therapy. (6) Acute metabolic encephalopathy Current Visit: No Status: Acute Plan to address problem: CT head, neuro check, seizure precaution, aspiration precaution. (7) DVT prophylaxis Current Visit: Yes Status: Acute Plan to address problem: SCD to bilateral lower extremities while in bed, prophylactic anticoagulation (8) Advance care planning Current Visit: No Status: Acute Plan to address problem: Disease education conducted, care plan discussed, diagnoses discussed, prognosis discussed, patient is full code. Patient family knowledges understanding and agreement with care plan, +30 minutes.
[2021-09-05] MEDS: INSULIN REGULAR, HUMAN 100 UNITS in SODIUM CHLORIDE 0.9% 99 ML IV SCH (20:01)
[2021-09-05 20:22] LABS: BUN/Creatinine Ratio 11
[2021-09-05 20:37] LABS: Blood Urea Nitrogen 37 mg/dL (7-17)
[2021-09-05 20:38] LABS: Calcium 7.2 mg/dL (8.4-10.2)
--- NOTE | 2021-09-05 20:39 | Procedure Note ---
Date of procedure: 09/05/21 Pre-op diagnosis: DKA Post-op diagnosis: same Procedure: Right internal jugular vein triple-lumen catheter placement ultrasound guidance The patient was prepped and draped in the usual sterile fashion. A timeout was taken with the patient's nurse at bedside to verify the correct patient, correct procedure and the correct operative site. Local anesthesia was obtained with 1% lidocaine. The Seldinger technique was utilized to access the right internal jugular vein without difficulty. Ultrasound was used to insert a seeker needle into the right internal jugular vein without difficulty. A guidewire was then advanced through the seeker needle into the right internal jugular vein and the seeker needle was subsequently removed over the guidewire. A scalpel was used to incise the skin. A dilator was then passed over the guidewire into the right internal jugular vein without difficulty. A preflushed triple-lumen catheter was then advanced into the right internal jugular vein and the guidewire subsequently removed. All 3 ports flush and draw with ease. A Biopatch was placed at the insertion site. 3o silk suture was utilized to secure the triple-lumen catheter in place. Estimated blood loss minimal, specimens none. Postoperative chest x-ray reviewed triple-lumen catheter in good position in the SVC. No evidence of pneumothorax. Anesthesia: local Estimated blood loss: minimal Pathology: none Condition: critical Disposition: ICU
--- NOTE | 2021-09-05 21:10 | XRay Report ---
CHEST 1 VIEW 09/05/2021 8:46 PM INDICATION / CLINICAL INFORMATION: central line placement. COMPARISON: Radiograph performed earlier in the day FINDINGS: SUPPORT DEVICES: Right IJ central line catheter tip projects over the SVC. HEART / MEDIASTINUM: Stable. LUNGS / PLEURA: Lung volumes remain low with bilateral interstitial opacities. No pneumothorax. ADDITIONAL FINDINGS: No significant additional findings. IMPRESSION: 1. Central line in expected position. Signer Name: Fredy Haile MD Signed: 09/05/2021 9:05 PM Workstation Name: [id number]
[2021-09-05 22:41] LABS: Bilirubin,Urine NEG (Negative); Blood,Urine LG (Negative); Color,Urine Yellow (Yellow); Mucus,Urine FEW /HPF; Urobilinogen,Urine < 2.0 mg/dL (<2.0)
[2021-09-05 22:58] LABS: Amphetamine Screen,Urine PRESUMPTIVE NEGATIVE; Benzodiazepines Screen,Urine PRESUMPTIVE NEGATIVE; Cannabinoid Screen,Urine PRESUMPTIVE NEGATIVE; Cocaine Screen,Urine PRESUMPTIVE NEGATIVE; Methadone Screen,Urine PRESUMPTIVE NEGATIVE; Opiate Screen,Urine PRESUMPTIVE NEGATIVE
[2021-09-05] MEDS ORDERED: SODIUM CHLORIDE 0.9% 1000 ML 1,000 ML IV SCH (23:00)
[2021-09-05] MEDS: HEPARIN 5,000 UNIT/1 ML VIAL SUB-Q SCH (23:32)
[2021-09-05] MEDS ORDERED: NACL 0.9%/KCL 20 MEQ 20 MEQ/1,000 ML BAG IV SCH (23:45)
[2021-09-05] MEDS ORDERED: NACL 0.45%/KCL 20 MEQ 20 MEQ/1,000 ML BAG IV SCH (23:45)
[2021-09-06 00:37] LABS: Calcium 7.5 mg/dL (8.4-10.2)
[2021-09-06] MEDS: POTASSIUM CHLORIDE 20 MEQ 20 MEQ/100 ML BAG IV SCH ×4 (01:02→04:12)
[2021-09-06 03:26] LABS: Calcium 7.7 mg/dL (8.4-10.2)
[2021-09-06] MEDS ORDERED: NACL 0.45%/KCL 20 MEQ 20 MEQ/1,000 ML BAG IV SCH (05:00)
[2021-09-06 05:43] LABS: Calcium 7.7 mg/dL (8.4-10.2)
[2021-09-06] MEDS: INSULIN REGULAR, HUMAN 100 UNITS in SODIUM CHLORIDE 0.9% 99 ML IV SCH ×4 (06:28→18:44)
[2021-09-06] MEDS ORDERED: SODIUM CHLORIDE 0.9% 1000 ML 3,000 ML IV ONE ×2 (07:45→11:40)
--- NOTE | 2021-09-06 09:00 | Consultation ---
History of Present Illness - Reason for Consult Consult date: 09/06/21 acute renal failure, metabolic acidosis - History of Present Illness The patient is 35 YO female with with history notable for Morbid Obesity, DM, Hypertension and Medication Noncompliance who presented to [facility] ED with confu monica and diminished cognition. Patient was not able to provide any history and there was no family members at the bedside. As per family the patient was found to be confused with decreased responsiveness yesterday morning. In the ED she was found to have DKA with bl glucose of 2321. Treatment started per protocol and patient was admitted to ICU. BP is low. Creatinine level continue to increase. Nephrology consulted for further evaluation and treatment. Past History Past Medical History: diabetes, hypertension, other (See HPI) Past Surgical History: No surgical history, Other (Reviewed) Social history: single. denies: smoking, alcohol abuse, prescription drug abuse Family history: diabetes, hypertension Medications and Allergies Allergies Allergy/AdvReac Type Severity Reaction Status Date / Time No Known Allergies Allergy Verified 08/30/21 17:10 Home Medications Medication Instructions Recorded Confirmed Last Taken Type Insulin NPH/Regular [NovoLIN 70/30] 50 unit SUB-Q BIDDIAB #10 ml 09/04/21 Unknown Rx Insulin Regular, Human [HumuLIN R] 0 unit SQ AC #1 vial 09/04/21 Unknown Rx Losartan [Cozaar] 50 mg PO QDAY #30 tablet 09/04/21 Unknown Rx Active Meds: Active Medications Acetaminophen (Acetaminophen 325 Mg Tab) 650 mg PO Q6H PRN PRN Reason: Pain MILD(1-3)/Fever >100.5/MUÑOZ Albuterol (Albuterol 2.5 Mg/3 Ml Nebu) 2.5 mg IH Q3HRT PRN PRN Reason: Shortness Of Breath Dextrose (Dextrose 50% In Water (25gm) 50 Ml Syringe) 0 ml IV Q30MIN PRN; Protocol PRN Reason: Hypoglycemia Heparin Sodium (Porcine) (Heparin 5,000 Unit/1 Ml Vial) 5,000 unit SUB-Q Q12HR SEAN Last Admin: 09/05/21 23:32 Dose: 5,000 unit Hydromorphone HCl (Hydromorphone 1 Mg/1 Ml Inj) 0.5 mg IV Q23H PRN PRN Reason: Pain , Severe (7-10) Insulin Human Regular 100 (units/ Sodium Chloride) 100 mls @ 1 mls/hr IV TITR SEAN; Protocol Last Admin: 09/06/21 06:28 Dose: 16 units/hr, 16 mls/hr Potassium Chloride/Sodium Chloride (Ns 0.45/Kcl 20meq) 20 meq in 1,000 mls @ 125 mls/hr IV DIRECT SEAN Last Admin: 09/06/21 05:30 Dose: 125 mls/hr Sodium Chloride (Nacl 0.9% 1000 Ml) 3,000 mls @ 999 mls/hr IV BOLUS ONE Stop: 09/06/21 10:45 Last Admin: 09/06/21 07:55 Dose: 999 mls/hr Oxycodone/Acetaminophen (Oxycodone /Acetaminophen 5-325mg Tab) 1 tab PO Q16H PRN PRN Reason: Pain, Moderate (4-6) Sodium Chloride (Sodium Chloride 0.9% 10 Ml Flush Syringe) 10 ml IV BID SEAN Last Admin: 09/05/21 23:32 Dose: 10 ml Sodium Chloride (Sodium Chloride 0.9% 10 Ml Flush Syringe) 10 ml IV PRN PRN PRN Reason: LINE FLUSH Review of Systems ROS unobtainable: due to mental status Exam - Vital Signs Vital signs: Vital Signs Pulse Resp BP Pulse Ox 91 H 30 H 114/91 97 09/05/21 16:34 09/05/21 16:34 09/05/21 16:34 09/05/21 16:34 Results - Lab Results 09/06/21 Unknown 09/06/21 14:25 Most recent lab results ABG pH 7.104 (7.320-7.450) L 09/05/21 19:30 ABG pCO2 50.8 mm Hg 09/05/21 17:10 ABG pO2 50.4 mm Hg (80.0-90.0) L 09/05/21 17:10 ABG HCO3 16.4 mmol/L (20.0-26.0) L 09/05/21 17:10 ABG O2 Saturation 98.3 (0-100) 09/05/21 19:30 Calcium 7.7 mg/dL (8.4-10.2) L 09/06/21 05:10 Phosphorus 2.40 mg/dL (2.5-4.5) L D 09/05/21 Unknown Magnesium 2.90 mg/dL (1.7-2.3) H 09/05/21 Unknown Assessment and Plan 1. Acute kidney injury: Vasomotor MARITZA in the setting of DKA / volume depletion / hypotension. Urine studies and Renal US ordered. Monitor renal function. Creatinine level increasing. Continue IV fluids. Avoid nephrotoxic agents. Meds dosage based on GFR. Monitor for [employer] needs. 2. FEN: Anion-gap metabolic acidosis, 2/2 DKA, per protocol, monitor. Replete lytes as needed. Monitor lytes and volume status. 3. Severe DKA, POA: Currently on Insulin drip and IV fluids. Supportive care. Diabetic education, diabetic nutrition education prior to discharge. 4. Hypotension: IV fluid bolus. Pressors as needed. Monitor BP. 5. Macrocytic anemia, POA: Monitor. 6. Medical noncompliance. Subjective: Patient was seen and examined at the bedside. Examination: General appearance: well-developed, appears stated age, obese, restless HEENT: atraumatic, RUSSEL Neck: trachea midline Respiratory: ctab Heart: S1S2, regular, no murmur Abdomen: soft, bowel sounds heard, NT Integumentary: no obvious rash Neurologic: lethargic, on restrains Ext: trace LE edema noted
[2021-09-06] MEDS: HEPARIN 5,000 UNIT/1 ML VIAL SUB-Q SCH ×2 (10:13→21:30)
--- NOTE | 2021-09-06 10:23 | Progress Note ---
<RASHEL MEJIA - Last Filed: 09/06/21 19:45> Assessment and Plan Assessment and plan: This is a 35-year-old female with past medical history of hypertension, DM, medical noncompliance, and morbid obesity admitted for HHNS and acute Kidney Injury Hospital Course to Date: 09/06: Patient remains severly acidotic despite insulin gtt and aggressive IVF resuscitation, BG remains over 1000. S/p emergent intubation due to acute hypoxic respiratory failure and witnessed seizure. Now on bcarb gtt and high pressors. Seizure is most likely due to severe metabolic acidosis, orders placed for EEG and Neurology consult. Continue insulin and bcarb gtt. Imagings with bilateral interstitial opacities, spike in WBCs, patient remains afebrile. Orders placed for cultures, empiric IV Abx initiated for possible CAP, CRP and Procal pending. Patient renal function also worsen, Nephrology consulted. Conference call with [facility], this [employer], and patient's sister,Ann Rooney. Thorough discussion on patient's critical condition and current status. All questions and concerns were addressed at this time. Team will continue to follow with further updates. Assessment and Plan #Hyperosmolar Hyperglycemic Nonketotis Syndrome(HHNS) - Newly diagnosed diabetes and noncompliant with medications - Presented with a BG level greater than 2000 - UA + protein, no Ketones - BG and Anion gap still elevated this am - DKA/insuling gtt initiated per protocol - Keep patient NPO - Aggressive IVF resuscitation - Now on Bcarb gtt - Monitor and replace electrolytes as needed - Monitor anion gap - Serial BMP,mag, and phosp ordered #Septic vs Hypovolemic Shock #Metabolic Acidosis #Bilateral Pneumonia-CAP - Probably due to severe metabolic acidosis/hypovelemia vs infectious process - Imaging with bilateral interstitial opacities - Now hypotensive and with spike in leukocytosis requiring high dose pressors and bcarb gtt - Panculture ordered, UA with mild pyuria - Empiric IV Abx initiated - Maintain adequate perfusion - Continue aggressive IVF resuscitation - Continue blood pressure monitor per protocol - Titrate pressors for a MAP above 65 #Acute Hypoxic Respiratory Failure #Severe Acidosis #Bilateral Pneumonia - Most likely due to severe acidosis - Imaging also reveal bilateral interstitial opacities - Intubated on 09/06 - Vent Setting:A/C-100%,8,30,500 - [facility] consulted, appreciate recommendations - Repeat ABG pending - VAP bundle addressed - Aspiration precaution HOB above 30 - Daily ABG and CXR - Continue SPO2 monitoring for SPO2 goal above 92% #Seizure #Acute Metabolic Acidosis - most likely due to severe acidosis - On insulin and bcarb gtt - Now intubated and sedated on fentanyl gtt - EEG pending - Titrate sedation for RASS goal of -2 to -3 - PRN Ativan for seizure like activities - Seizures and Aspiration precautions #Acute Kidney Injury(MARITZA) most likely Vasomotor Nephropathy #Hypokalemia-improved - Due to HHNS/dehyration/hypovolemia - Nephrology on consult, appreciated recommendation - Continue aggressive IVF resuscitation - Strict intake and output - Avoid nephrotoxic medications; Renally dose medications - Myers in place- patient is still making urine - Monitor and replace electrolytes as needed #Coffee Ground Emesis #Macrocytic Anemia - Coffee ground emesis noted from OGT - H&H is stable - OGT to LIS - Keep patient NPO - IV PPI- pepcid initiated - Trend CBC - Transfuse if H&H less than 7 - Consider GI consult if H&H drop and coffee ground emesis worsen #GI/DVT prophylaxis - PPI- IV Pepcid - Continue SubQ Heparin for now - SCD to bilateral lower extremities while in bed The high probability of a clinically significant, sudden or life threatening deterioration of the [multiple] system(s) required my full and direct attention, intervention and personal management. The aggregate critical care time was [90] minutes. This time is in addition to time spent performing reported procedures but includes the following: [x] Data Review and interpretation [x] Patient assessment and monitoring of vital signs [x] Documentation [x] Medication orders and management Disposition Plan: ICU Total Time Spent with Patient (Minutes): 90 History Interval history: Patient seen and examined at the bedside. Patient is s/p intubation for acute hypoxic respiratory failure, s/p witnessed seizure. Remains hyperglycemic with severe metabolic acidosis, remains on insulin gtt, now on pressors and bcarb gtt. Hospitalist Physical - Constitutional Vitals: Temp Pulse Resp BP Pulse Ox 98.8 F 105 H 16 153/121 93 09/06/21 08:00 09/06/21 10:00 09/06/21 10:00 09/06/21 10:00 09/06/21 10:00 General appearance: Present: mild distress, obese, other (Intubated and sedated) - EENT Eyes: Present: PERRL - Respiratory Respiratory effort: labored, accessory muscle use Respiratory: bilateral: rhonchi - Cardiovascular Rhythm: regular Heart Sounds: Present: S1 & S2 - Extremities Extremities: no ischemia, pulses intact, pulses symmetrical Extremity abnormal: edema - Peripheral Assessment Generalized Edema Type: Pitting Edema Degree: 2+ Capillary Refill: < 3 seconds Skin Temperature: Warm Peripheral Pulses: within normal limits - Abdominal General gastrointestinal: soft, non-distended, hypoactive bowel sounds - Integumentary Integumentary: Present: warm, dry - Psychiatric Psychiatric: other (Intubated and sedated) - Neurologic Neurologic: other (Intubated and sedated) - Allied Health Allied health notes reviewed: nursing HEART Score - HEART Score Troponin: Troponin T < 0.010 ng/mL (0.00-0.029) 09/05/21 18:00 Results - Labs CBC & Chem 7: 09/06/21 Unknown 09/06/21 17:00 Labs: Laboratory Last Values WBC 10.2 K/mm3 (4.5-11.0) 09/05/21 17:10 RBC 3.33 M/mm3 (3.65-5.03) L 09/05/21 17:10 Hgb 9.0 gm/dl (10.1-14.3) L 09/05/21 17:10 Hct 40.7 % (30.3-42.9) 09/05/21 17:10 MCV 122 fl (79-97) H 09/05/21 17:10 MCH 27 pg (28-32) L 09/05/21 17:10 MCHC 22 % (30-34) L 09/05/21 17:10 RDW 19.1 % (13.2-15.2) H 09/05/21 17:10 Plt Count 163 K/mm3 (140-440) D 09/05/21 17:10 Lymph % (Auto) 4.8 % (13.4-35.0) L 09/05/21 17:10 Parmer % (Auto) 13.5 % (0.0-7.3) H 09/05/21 17:10 Eos % (Auto) 0.0 % (0.0-4.3) 09/05/21 17:10 Baso % (Auto) 0.5 % (0.0-1.8) 09/05/21 17:10 Lymph # (Auto) 0.5 K/mm3 (1.2-5.4) L 09/05/21 17:10 Parmer # (Auto) 1.4 K/mm3 (0.0-0.8) H 09/05/21 17:10 Eos # (Auto) 0.0 K/mm3 (0.0-0.4) 09/05/21 17:10 Baso # (Auto) 0.1 K/mm3 (0.0-0.1) 09/05/21 17:10 Seg Neutrophils % 81.2 % (40.0-70.0) H 09/05/21 17:10 Seg Neutrophils # 8.3 K/mm3 (1.8-7.7) H 09/05/21 17:10 ABG pH 7.104 (7.320-7.450) L 09/05/21 19:30 POC ABG pCO2 48.1 mmHg (32.0-48.0) H 09/05/21 19:30 ABG pCO2 50.8 mm Hg 09/05/21 17:10 POC ABG pO2 142.6 mmHg (83-108) H 09/05/21 19:30 ABG pO2 50.4 mm Hg (80.0-90.0) L 09/05/21 17:10 POC ABG HCO3 14.7 09/05/21 19:30 ABG HCO3 16.4 mmol/L (20.0-26.0) L 09/05/21 17:10 ABG O2 Saturation 98.3 (0-100) 09/05/21 19:30 ABG O2 Content 8.7 (0.0-44) 09/05/21 17:10 POC ABG Base Excess -14.2 09/05/21 19:30 ABG Base Excess -12.3 mmol/L (-2.0-3.0) L 09/05/21 17:10 ABG Hemoglobin 9.4 (12.0-17.5) L 09/05/21 19:30 ABG Oxyhemoglobin 97.3 (94-98) 09/05/21 19:30 ABG Carboxyhemoglobin 3.8 % (0.0-5.0) 09/05/21 17:10 ABG Methemoglobin 0.3 (0.0-1.5) 09/05/21 19:30 VBG pH 7.126 (7.320-7.420) L* 09/05/21 17:10 Oxyhemoglobin 65.2 % (95.0-99.0) L 09/05/21 17:10 Carboxyhemoglobin 0.7 (0.5-1.5) 09/05/21 19:30 FiO2 21 % 09/05/21 17:10 FiO2 % 50 09/05/21 19:30 Sodium 142 mmol/L (137-145) 09/06/21 05:10 Potassium 3.5 mmol/L (3.6-5.0) L 09/06/21 05:10 Chloride 111.3 mmol/L (98-107) H 09/06/21 05:10 Carbon Dioxide 12 mmol/L (22-30) L 09/06/21 05:10 Anion Gap 22 mmol/L 09/06/21 05:10 BUN 37 mg/dL (7-17) H 09/06/21 05:10 Creatinine 4.0 mg/dL (0.6-1.2) H 09/06/21 05:10 Estimated GFR 16 ml/min 09/06/21 05:10 BUN/Creatinine Ratio 9 % 09/06/21 05:10 Glucose 1310 mg/dL (65-100) H* 09/06/21 08:31 POC Glucose > 600 mg/dL (70-105) H 09/05/21 21:14 Calcium 7.7 mg/dL (8.4-10.2) L 09/06/21 05:10 Phosphorus 2.40 mg/dL (2.5-4.5) L D 09/05/21 Unknown Magnesium 2.90 mg/dL (1.7-2.3) H 09/05/21 Unknown Total Bilirubin 0.20 mg/dL (0.1-1.2) 09/05/21 18:56 AST 65 units/L (5-40) H 09/05/21 18:56 ALT 73 units/L (7-56) H 09/05/21 18:56 Alkaline Phosphatase 182 units/L (35-129) H 09/05/21 18:56 Ammonia 50.0 umol/L (25-60) 09/05/21 Unknown Total Creatine Kinase 1772 units/L (30-135) H 09/05/21 18:00 CK-MB (CK-2) 18.7 ng/mL (0.0-4.0) H 09/05/21 18:00 CK-MB (CK-2) Rel Index 1.0 (0-4) 09/05/21 18:00 Troponin T < 0.010 ng/mL (0.00-0.029) 09/05/21 18:00 Total Protein 5.4 g/dL (6.3-8.2) L D 09/05/21 18:56 Albumin 2.9 g/dL (3.9-5) L 09/05/21 18:56 Albumin/Globulin Ratio 1.2 % 09/05/21 18:56 HCG, Quant < 2 mIU/mL (0-4) 09/05/21 17:10 Urine Color Yellow (Yellow) 09/05/21 21:41 Urine Turbidity Slightly-cloudy (Clear) 09/05/21 21:41 Urine pH 6.0 (5.0-7.0) 09/05/21 21:41 Ur Specific [place] 1.026 (1.003-1.030) 09/05/21 21:41 Urine Protein 30 mg/dl mg/dL (Negative) 09/05/21 21:41 Urine Glucose (UA) >=500 mg/dL (Negative) 09/05/21 21:41 Urine Ketones Neg mg/dL (Negative) 09/05/21 21:41 Urine Blood Lg (Negative) 09/05/21 21:41 Urine Nitrite Neg (Negative) 09/05/21 21:41 Urine Bilirubin Neg (Negative) 09/05/21 21:41 Urine Urobilinogen < 2.0 mg/dL (<2.0) 09/05/21 21:41 Ur Leukocyte Esterase Mod (Negative) 09/05/21 21:41 Urine WBC (Auto) 8.0 /HPF (0.0-6.0) H 09/05/21 21:41 Urine RBC (Auto) 5.0 /HPF (0.0-6.0) 09/05/21 21:41 U Epithel Cells (Auto) 1.0 /HPF (0-13.0) 09/05/21 21:41 Urine Mucus Few /HPF 09/05/21 21:41 Urine Opiates Screen Presumptive negative 09/05/21 21:41 Urine Methadone Screen Presumptive negative 09/05/21 21:41 Ur Barbiturates Screen Presumptive negative 09/05/21 21:41 Ur Phencyclidine Scrn Presumptive negative 09/05/21 21:41 Ur Amphetamines Screen Presumptive negative 09/05/21 21:41 U Benzodiazepines Scrn Presumptive negative 09/05/21 21:41 Urine Cocaine Screen Presumptive negative 09/05/21 21:41 U Marijuana (THC) Screen Presumptive negative 09/05/21 21:41 Drugs of Abuse Note Disclamer 09/05/21 21:41 Plasma/Serum Alcohol < 0.01 % (0-0.07) 09/05/21 17:10 Active Medications - Current Medications Current Medications: Generic Name Dose Route Start Last Admin Trade Name Freq PRN Reason Stop Dose Admin Acetaminophen 650 mg 09/05/21 19:44 Acetaminophen 325 Mg Tab PO Q6H PRN Pain MILD(1-3)/Fever >100.5/MUÑOZ Albuterol 2.5 mg 09/05/21 19:44 Albuterol 2.5 Mg/3 Ml Nebu IH Q3HRT PRN Shortness Of Breath Dextrose 0 ml 09/05/21 16:54 Dextrose 50% In Water (25gm) 50 Ml Syringe IV Q30MIN PRN Hypoglycemia Protocol Heparin Sodium (Porcine) 5,000 unit 09/05/21 22:00 09/06/21 10:13 Heparin 5,000 Unit/1 Ml Vial SUB-Q 5,000 unit Q12HR SEAN Administration Hydromorphone HCl 0.5 mg 09/05/21 19:44 Hydromorphone 1 Mg/1 Ml Inj IV Q23H PRN Pain , Severe (7-10) Insulin Human Regular 100 100 mls @ 1 mls/hr 09/05/21 20:00 09/06/21 10:11 units/ Sodium Chloride IV 22 units/hr TITR SEAN 22 mls/hr Titration Protocol 1 UNITS/HR Potassium Chloride/Sodium Chloride 20 meq in 1,000 mls @ 125 mls/hr 09/06/21 05:00 09/06/21 05:30 Ns 0.45/Kcl 20meq IV 125 mls/hr DIRECT SEAN Administration Sodium Chloride 3,000 mls @ 999 mls/hr 09/06/21 07:45 09/06/21 07:55 Nacl 0.9% 1000 Ml IV 09/06/21 10:45 999 mls/hr BOLUS ONE Administration Oxycodone/Acetaminophen 1 tab 09/05/21 19:44 Oxycodone /Acetaminophen 5-325mg Tab PO Q16H PRN Pain, Moderate (4-6) Sodium Chloride 10 ml 09/05/21 22:00 09/06/21 10:13 Sodium Chloride 0.9% 10 Ml Flush Syringe IV 10 ml BID SEAN Administration Sodium Chloride 10 ml 09/05/21 19:44 Sodium Chloride 0.9% 10 Ml Flush Syringe IV PRN PRN LINE FLUSH <ELEAZAR MORLEY - Last Filed: 09/07/21 07:36> Assessment and Plan Assessment and plan: I saw and evaluated the patient. I agree with the findings and the plan of care as documented in the Nurse Practitioner's~note, with the following corrections and additions. Hospitalist Physical - Constitutional Vitals: Temp Pulse Resp BP Pulse Ox 98.2 F 49 L 29 H 88/40 95 09/07/21 00:00 09/07/21 06:00 09/07/21 06:00 09/07/21 04:00 09/07/21 04:00 HEART Score - HEART Score Troponin: Troponin T < 0.010 ng/mL (0.00-0.029) 09/05/21 18:00 Results - Labs CBC & Chem 7: 09/06/21 Unknown 09/06/21 17:00 Labs: Laboratory Last Values WBC 20.7 K/mm3 (4.5-11.0) H 09/06/21 Unknown RBC 3.34 M/mm3 (3.65-5.03) L 09/06/21 Unknown Hgb 8.5 gm/dl (10.1-14.3) L 09/06/21 Unknown Hct 32.2 % (30.3-42.9) D 09/06/21 Unknown MCV 96 fl (79-97) 09/06/21 Unknown MCH 25 pg (28-32) L 09/06/21 Unknown MCHC 26 % (30-34) L 09/06/21 Unknown RDW 19.2 % (13.2-15.2) H 09/06/21 Unknown Plt Count 97 K/mm3 (140-440) L 09/06/21 Unknown Lymph % (Auto) 4.8 % (13.4-35.0) L 09/05/21 17:10 Parmer % (Auto) 13.5 % (0.0-7.3) H 09/05/21 17:10 Eos % (Auto) 0.0 % (0.0-4.3) 09/05/21 17:10 Baso % (Auto) 0.5 % (0.0-1.8) 09/05/21 17:10 Lymph # (Auto) 0.5 K/mm3 (1.2-5.4) L 09/05/21 17:10 Parmer # (Auto) 1.4 K/mm3 (0.0-0.8) H 09/05/21 17:10 Eos # (Auto) 0.0 K/mm3 (0.0-0.4) 09/05/21 17:10 Baso # (Auto) 0.1 K/mm3 (0.0-0.1) 09/05/21 17:10 Add Manual Diff Complete 09/06/21 Unknown Total Counted 100 09/06/21 Unknown Seg Neutrophils % Floor Renovator 09/06/21 Unknown Seg Neuts % (Manual) 82.0 % (40.0-70.0) H 09/06/21 Unknown Band Neutrophils % 0 % 09/06/21 Unknown Lymphocytes % (Manual) 7.0 % (13.4-35.0) L 09/06/21 Unknown Reactive Lymphs % (Man) 0 % 09/06/21 Unknown Monocytes % (Manual) 11.0 % (0.0-7.3) H 09/06/21 Unknown Eosinophils % (Manual) 0 % (0.0-4.3) 09/06/21 Unknown Basophils % (Manual) 0 % (0.0-1.8) 09/06/21 Unknown Metamyelocytes % 0 % 09/06/21 Unknown Myelocytes % 0 % 09/06/21 Unknown Promyelocytes % 0 % 09/06/21 Unknown Blast Cells % 0 % 09/06/21 Unknown Nucleated RBC % Not Reportable 09/06/21 Unknown Seg Neutrophils # 8.3 K/mm3 (1.8-7.7) H 09/05/21 17:10 Seg Neutrophils # Man 17.0 K/mm3 (1.8-7.7) H 09/06/21 Unknown Band Neutrophils # 0.0 K/mm3 09/06/21 Unknown Lymphocytes # (Manual) 1.4 K/mm3 (1.2-5.4) 09/06/21 Unknown Abs React Lymphs (Man) 0.0 K/mm3 09/06/21 Unknown Monocytes # (Manual) 2.3 K/mm3 (0.0-0.8) H 09/06/21 Unknown Eosinophils # (Manual) 0.0 K/mm3 (0.0-0.4) 09/06/21 Unknown Basophils # (Manual) 0.0 K/mm3 (0.0-0.1) 09/06/21 Unknown Metamyelocytes # 0.0 K/mm3 09/06/21 Unknown Myelocytes # 0.0 K/mm3 09/06/21 Unknown Promyelocytes # 0.0 K/mm3 09/06/21 Unknown Blast Cells # 0.0 K/mm3 09/06/21 Unknown WBC Morphology Not Reportable 09/06/21 Unknown Hypersegmented Neuts Not Reportable 09/06/21 Unknown Hyposegmented Neuts Not Reportable 09/06/21 Unknown Hypogranular Neuts Not Reportable 09/06/21 Unknown Smudge Cells Not Reportable 09/06/21 Unknown Toxic Granulation Not Reportable 09/06/21 Unknown Toxic Vacuolation Not Reportable 09/06/21 Unknown Dohle Bodies Not Reportable 09/06/21 Unknown Pelger-Huet Anomaly Not Reportable 09/06/21 Unknown Drew Rods Not Reportable 09/06/21 Unknown Platelet Estimate Not Reportable 09/06/21 Unknown Clumped Platelets Not Reportable 09/06/21 Unknown Plt Clumps, EDTA Not Reportable 09/06/21 Unknown Large Platelets Not Reportable 09/06/21 Unknown Giant Platelets Not Reportable 09/06/21 Unknown Platelet Satelliting Not Reportable 09/06/21 Unknown Plt Morphology Comment Not Reportable 09/06/21 Unknown RBC Morphology Not Reportable 09/06/21 Unknown Dimorphic RBCs Not Reportable 09/06/21 Unknown Polychromasia Not Reportable 09/06/21 Unknown Hypochromasia 1+ 09/06/21 Unknown Poikilocytosis Not Reportable 09/06/21 Unknown Anisocytosis Few 09/06/21 Unknown Microcytosis Rare 09/06/21 Unknown Macrocytosis Not Reportable 09/06/21 Unknown Spherocytes Not Reportable 09/06/21 Unknown Pappenheimer Bodies Not Reportable 09/06/21 Unknown Sickle Cells Not Reportable 09/06/21 Unknown Target Cells Not Reportable 09/06/21 Unknown Tear Drop Cells Not Reportable 09/06/21 Unknown Ovalocytes Not Reportable 09/06/21 Unknown Helmet Cells Not Reportable 09/06/21 Unknown Burroughs-Gu[place]upe Bodies Not Reportable 09/06/21 Unknown Brea Rings Not Reportable 09/06/21 Unknown Richard Cells Not Reportable 09/06/21 Unknown Bite Cells Not Reportable 09/06/21 Unknown Crenated Cell Not Reportable 09/06/21 Unknown Elliptocytes Not Reportable 09/06/21 Unknown Acanthocytes (Spur) Not Reportable 09/06/21 Unknown Rouleaux Not Reportable 09/06/21 Unknown Hemoglobin C Crystals Not Reportable 09/06/21 Unknown Schistocytes Not Reportable 09/06/21 Unknown Malaria parasites Not Reportable 09/06/21 Unknown Saleem Bodies Not Reportable 09/06/21 Unknown Hem Pathologist Commnt No 09/06/21 Unknown PT 17.8 Sec. (12.2-14.9) H 09/06/21 Unknown INR 1.31 (0.87-1.13) H 09/06/21 Unknown ABG pH 6.81 pH Units (7.350-7.450) L* 09/06/21 23:05 POC ABG pCO2 48.1 mmHg (32.0-48.0) H 09/05/21 19:30 ABG pCO2 41.8 mm Hg 09/06/21 23:05 POC ABG pO2 142.6 mmHg (83-108) H 09/05/21 19:30 ABG pO2 41.2 mm Hg (80.0-90.0) L 09/06/21 23:05 POC ABG HCO3 14.7 09/05/21 19:30 ABG HCO3 5.9 mmol/L (20.0-26.0) L 09/06/21 23:05 ABG O2 Saturation 50.2 % (95.0-99.0) L 09/06/21 23:05 ABG O2 Content 6.0 (0.0-44) 09/06/21 23:05 POC ABG Base Excess -14.2 09/05/21 19:30 ABG Base Excess -29.5 mmol/L (-2.0-3.0) L 09/06/21 23:05 ABG Hemoglobin Not Reportable 09/06/21 23:05 ABG Oxyhemoglobin 97.3 (94-98) 09/05/21 19:30 ABG Carboxyhemoglobin 1.8 % (0.0-5.0) 09/06/21 23:05 ABG Methemoglobin 0.2 % (0.0-1.5) 09/06/21 23:05 VBG pH 7.126 (7.320-7.420) L* 09/05/21 17:10 Oxyhemoglobin 49.2 % (95.0-99.0) L 09/06/21 23:05 Carboxyhemoglobin 0.7 (0.5-1.5) 09/05/21 19:30 FiO2 100 % 09/06/21 23:05 FiO2 % 50 09/05/21 19:30 Sodium 156 mmol/L (137-145) H D 09/06/21 17:00 Potassium 5.1 mmol/L (3.6-5.0) H D 09/06/21 17:00 Chloride 121.7 mmol/L (98-107) H 09/06/21 17:00 Carbon Dioxide 15 mmol/L (22-30) L 09/06/21 17:00 Anion Gap 24 mmol/L 09/06/21 17:00 BUN 32 mg/dL (7-17) H 09/06/21 17:00 Creatinine 4.9 mg/dL (0.6-1.2) H 09/06/21 17:00 Estimated GFR 12 ml/min 09/06/21 17:00 BUN/Creatinine Ratio 7 % 09/06/21 17:00 Glucose 492 mg/dL (65-100) H 09/06/21 17:00 POC Glucose 127 mg/dL (70-105) H 09/07/21 05:07 Lactic Acid 7.20 mmol/L (0.7-2.0) H* 09/06/21 17:00 Calcium 7.2 mg/dL (8.4-10.2) L 09/06/21 17:00 Phosphorus 3.60 mg/dL (2.5-4.5) D 09/06/21 17:00 Magnesium 2.30 mg/dL (1.7-2.3) 09/06/21 17:00 Total Bilirubin 0.20 mg/dL (0.1-1.2) 09/05/21 18:56 AST 65 units/L (5-40) H 09/05/21 18:56 ALT 73 units/L (7-56) H 09/05/21 18:56 Alkaline Phosphatase 182 units/L (35-129) H 09/05/21 18:56 Ammonia 50.0 umol/L (25-60) 09/05/21 Unknown Total Creatine Kinase 1772 units/L (30-135) H 09/05/21 18:00 CK-MB (CK-2) 18.7 ng/mL (0.0-4.0) H 09/05/21 18:00 CK-MB (CK-2) Rel Index 1.0 (0-4) 09/05/21 18:00 Troponin T < 0.010 ng/mL (0.00-0.029) 09/05/21 18:00 C-Reactive Protein 11.00 mg/dL (0.00-1.30) H 09/06/21 14:25 Total Protein 5.4 g/dL (6.3-8.2) L D 09/05/21 18:56 Albumin 2.9 g/dL (3.9-5) L 09/05/21 18:56 Albumin/Globulin Ratio 1.2 % 09/05/21 18:56 Triglycerides 213 mg/dL (2-149) H 09/06/21 12:00 Procalcitonin 6.97 ng/mL (<0.15) 09/06/21 14:50 HCG, Quant < 2 mIU/mL (0-4) 09/05/21 17:10 Urine Color Yellow (Yellow) 09/05/21 21:41 Urine Turbidity Slightly-cloudy (Clear) 09/05/21 21:41 Urine pH 6.0 (5.0-7.0) 09/05/21 21:41 Ur Specific [place] 1.026 (1.003-1.030) 09/05/21 21:41 Urine Protein 30 mg/dl mg/dL (Negative) 09/05/21 21:41 Urine Glucose (UA) >=500 mg/dL (Negative) 09/05/21 21:41 Urine Ketones Neg mg/dL (Negative) 09/05/21 21:41 Urine Blood Lg (Negative) 09/05/21 21:41 Urine Nitrite Neg (Negative) 09/05/21 21:41 Urine Bilirubin Neg (Negative) 09/05/21 21:41 Urine Urobilinogen < 2.0 mg/dL (<2.0) 09/05/21 21:41 Ur Leukocyte Esterase Mod (Negative) 09/05/21 21:41 Urine WBC (Auto) 8.0 /HPF (0.0-6.0) H 09/05/21 21:41 Urine RBC (Auto) 5.0 /HPF (0.0-6.0) 09/05/21 21:41 U Epithel Cells (Auto) 1.0 /HPF (0-13.0) 09/05/21 21:41 Urine Mucus Few /HPF 09/05/21 21:41 Urine Creatinine 87.4 mg/dL (0.1-20.0) H 09/06/21 18:55 Urine Sodium 10 mmol/L 09/06/21 18:55 Urine Opiates Screen Presumptive negative 09/05/21 21:41 Urine Methadone Screen Presumptive negative 09/05/21 21:41 Ur Barbiturates Screen Presumptive negative 09/05/21 21:41 Ur Phencyclidine Scrn Presumptive negative 09/05/21 21:41 Ur Amphetamines Screen Presumptive negative 09/05/21 21:41 U Benzodiazepines Scrn Presumptive negative 09/05/21 21:41 Urine Cocaine Screen Presumptive negative 09/05/21 21:41 U Marijuana (THC) Screen Presumptive negative 09/05/21 21:41 Drugs of Abuse Note Disclamer 09/05/21 21:41 Plasma/Serum Alcohol < 0.01 % (0-0.07) 09/05/21 17:10 Myers/IV: Voiding Method Indwelling Catheter Active Medications - Current Medications Current Medications: Generic Name Dose Route Start Last Admin Trade Name Freq PRN Reason Stop Dose Admin Acetaminophen 650 mg 09/05/21 19:44 Acetaminophen 325 Mg Tab PO Q6H PRN Pain MILD(1-3)/Fever >100.5/MUÑOZ Albuterol 2.5 mg 09/05/21 19:44 Albuterol 2.5 Mg/3 Ml Nebu IH Q3HRT PRN Shortness Of Breath Dextrose 0 ml 09/07/21 01:41 09/07/21 01:35 Dextrose 10% *Hypoglycemia IV 150 ml PRN PRN Administration Hypoglycemia Famotidine 10 mg 09/06/21 22:00 09/06/21 21:30 Famotidine 20 Mg/2 Ml Inj IV 10 mg BID SEAN Administration Fentanyl 50 mcg 09/06/21 11:50 09/06/21 12:30 Fentanyl 100 Mcg/2 Ml Inj IV 50 mcg Q10MIN PRN Administration ANALGESIA Heparin Sodium (Porcine) 5,000 unit 09/05/21 22:00 09/06/21 21:30 Heparin 5,000 Unit/1 Ml Vial SUB-Q Not Given Q12HR SEAN Hydromorphone HCl 0.5 mg 09/05/21 19:44 Hydromorphone 1 Mg/1 Ml Inj IV Q23H PRN Pain , Severe (7-10) Hydrophilic Ointment 1 applic 09/06/21 12:52 Lip Therapy Vaseline TP Q2HR PRN Dry Lips Insulin Human Regular 100 100 mls @ 1 mls/hr 09/05/21 20:00 09/06/21 23:15 units/ Sodium Chloride IV Infused TITR SEAN Titration Protocol 1 UNITS/HR Fentanyl Citrate 2,000 mcg in 100 mls @ 7.938 mls/hr 09/06/21 12:00 09/06/21 20:29 Fentanyl Drip Premix IV 0 mcg/kg/hr TITR SEAN 0 mls/hr Titration Protocol 1 MCG/KG/HR Sodium Bicarbonate 150 meq/ 1,150 mls @ 150 mls/hr 09/06/21 12:00 09/07/21 03:00 Sterile Water IV 150 mls/hr DIRECT SEAN Administration NORepinephrine/NS 8 MG-250 ML 8 mg in 250 mls @ 3.75 mls/hr 09/06/21 13:00 09/07/21 05:02 Norepinephrine/Ns 8 Mg-250 Ml (Double Conc) IV 30 mcg/min TITRATE SEAN 56.25 mls/hr Administration Protocol 2 MCG/MIN Vasopressin 20 unit/ Sodium 101 mls @ 9.09 mls/hr 09/06/21 13:00 09/06/21 22:43 Chloride IV 0.03 units/min TITR SEAN 9.09 mls/hr Administration Protocol 0.03 UNITS/MIN Azithromycin 500 mg in 250 mls @ 250 mls/hr 09/06/21 13:00 09/06/21 17:00 Zithromax/Ns IV 09/08/21 13:59 Infused Q24H SEAN Infusion Ceftriaxone Sodium 2 gm in 100 mls @ 200 mls/hr 09/06/21 13:00 09/06/21 17:00 Rocephin/Ns 2 Gm/100 Ml IV 09/10/21 13:29 Infused Q24H SEAN Infusion Protocol Phenylephrine HCl 100 mg/ 100 mls @ 3 mls/hr 09/06/21 19:30 09/07/21 00:35 Sodium Chloride IV 400 mcg/min TITR SEAN 24 mls/hr Administration Protocol 50 MCG/MIN Epinephrine 8 mg/ Sodium 250 mls @ 3.75 mls/hr 09/06/21 23:00 09/07/21 00:00 Chloride IV 10 mcg/min TITR SEAN 18.75 mls/hr Titration Protocol 2 MCG/MIN Dopamine HCl/Dextrose 800 mg in 250 mls @ 5.953 mls/hr 09/07/21 04:00 09/07/21 05:00 Dopamine 800 Mg/D5w 250ml IV 10 mcg/kg/min TITR SEAN 29.767 mls/hr Titration Protocol 2 MCG/KG/MIN Dextrose 1,000 mls @ 25 mls/hr 09/07/21 06:00 D10w IV DIRECT SEAN Multi-Ingred Cream/Lotion/Oil/Oint 1 applic 09/06/21 12:52 Mineral Oil/Petrolatum, White Ophth Oint 3.5 Gm OU Q4HR PRN Dry Eye(s) Oxycodone/Acetaminophen 1 tab 09/05/21 19:44 Oxycodone /Acetaminophen 5-325mg Tab PO Q16H PRN Pain, Moderate (4-6) Senna/Docusate Sodium 1 tab 09/06/21 22:00 09/06/21 21:30 Sennosides/Docusate Sodium 8.6/50 Mg Tab FEEDTUBE Not Given BID SEAN Sodium Chloride 10 ml 09/05/21 22:00 09/06/21 21:30 Sodium Chloride 0.9% 10 Ml Flush Syringe IV 10 ml BID SEAN Administration Sodium Chloride 10 ml 09/05/21 19:44 Sodium Chloride 0.9% 10 Ml Flush Syringe IV PRN PRN LINE FLUSH Nutrition/Malnutrition Assess - Dietary Evaluation Nutrition/Malnutrition Findings: Nutrition Notes Start: 09/06/21 15:07 Freq: Status: Active Protocol: Document 09/06/21 15:07 VIVIAN (Rec: 09/06/21 15:16 VIVIAN [id number]) Nutrition Notes Need for Assessment generated from: MD Order,Education Initial or Follow up Brief Note Current Diagnosis Acute Kidney Injury,Diabetes, Hypertension Other Pertinent Diagnosis DKA, Metabolic Encephalopathy, Rabdomyolisis, Hyponatremia, OHS. Current Diet NPO (since 09/05 19:46). 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 Weight Status Morbidly Obese Subjective/Other Information RD consult for nutrition education. Pt currently on NPO. Pt still on critical conditions, not a candidate for Nutrition Education at the time, will assess feasibility on F/U. Percent of energy/protein needs met: Pt currently on NPO. Nutrition Intervention Follow-Up By: 09/08/21 Additional Comments Nutrition education will be provided on F/U, if feasible. When pertinent, start monitoring food tolerance, %PO intake of meals, and BM.
[2021-09-06] MEDS ORDERED: SODIUM BICARB 8.4% 50 MEQ/50 ML SYRINGE IV ONE ×8 (11:43→23:39)
[2021-09-06] MEDS ORDERED: NORepinephrine/NS 8 MG-250 ML 8 MG/250 ML INFUS..BTL IV ONE (11:43)
[2021-09-06] MEDS ORDERED: LORazepam 2 MG/ML VIAL ONE (11:44)
[2021-09-06] MEDS: NORepinephrine/NS 8 MG-250 ML 8 MG/250 ML INFUS..BTL IV SCH ×3 (11:45→20:16)
[2021-09-06] MEDS ORDERED: propofoL 200 MG/20 ML VIAL IV ONE ×2 (11:45→12:00)
[2021-09-06] MEDS ORDERED: fentaNYL 100 MCG/2 ML INJ IV PRN (11:50)
[2021-09-06] MEDS: fentaNYL DRIP Premix 2,000 MCG/100 ML BAG IV SCH ×3 (12:00→18:03)
[2021-09-06 12:07] LABS: ABG Base Excess -16.9 mmol/L (-2.0-3.0); ABG HCO3 14.2 mmol/L (20.0-26.0); ABG Methemoglobin 0.8 % (0.0-1.5); ABG Oxygen Saturation 73.8 % (95.0-99.0); ABG PCO2 65.1 mm Hg; ABG PO2 63.2 mm Hg (80.0-90.0)
[2021-09-06 12:17] LABS: ABG PH 6.955 pH Units (7.350-7.450)
[2021-09-06] MEDS: SODIUM BICARBONATE 150 MEQ in WATER FOR INJECTION (PF) 1,000 ML IV SCH (12:20)
--- NOTE | 2021-09-06 12:32 | Consultation ---
History of Present Illness Consult date: 09/06/21 Requesting physician: ALISHA VEGAS Reason for consult: other (DKA) History of present illness: PULMONARY/CCM CONSULT NOTE (Full dictation # [id number]) Please see dictated notes for full details Past History Past Medical History: diabetes, hypertension, other (See HPI) Past Surgical History: No surgical history, Other (Reviewed) Social history: single. denies: smoking, alcohol abuse, prescription drug abuse Family history: diabetes, hypertension Medications and Allergies Allergies Allergy/AdvReac Type Severity Reaction Status Date / Time No Known Allergies Allergy Verified 08/30/21 17:10 Home Medications Medication Instructions Recorded Confirmed Last Taken Type Insulin NPH/Regular [NovoLIN 70/30] 50 unit SUB-Q BIDDIAB #10 ml 09/04/21 Unknown Rx Insulin Regular, Human [HumuLIN R] 0 unit SQ AC #1 vial 09/04/21 Unknown Rx Losartan [Cozaar] 50 mg PO QDAY #30 tablet 09/04/21 Unknown Rx Active Meds: Active Medications Acetaminophen (Acetaminophen 325 Mg Tab) 650 mg PO Q6H PRN PRN Reason: Pain MILD(1-3)/Fever >100.5/MUÑOZ Albuterol (Albuterol 2.5 Mg/3 Ml Nebu) 2.5 mg IH Q3HRT PRN PRN Reason: Shortness Of Breath Dextrose (Dextrose 50% In Water (25gm) 50 Ml Syringe) 0 ml IV Q30MIN PRN; Protocol PRN Reason: Hypoglycemia Fentanyl (Fentanyl 100 Mcg/2 Ml Inj) 50 mcg IV Q10MIN PRN PRN Reason: ANALGESIA Heparin Sodium (Porcine) (Heparin 5,000 Unit/1 Ml Vial) 5,000 unit SUB-Q Q12HR SEAN Last Admin: 09/06/21 10:13 Dose: 5,000 unit Hydromorphone HCl (Hydromorphone 1 Mg/1 Ml Inj) 0.5 mg IV Q23H PRN PRN Reason: Pain , Severe (7-10) Insulin Human Regular 100 (units/ Sodium Chloride) 100 mls @ 1 mls/hr IV TITR SEAN; Protocol Last Titration: 09/06/21 10:11 Dose: 22 units/hr, 22 mls/hr Potassium Chloride/Sodium Chloride (Ns 0.45/Kcl 20meq) 20 meq in 1,000 mls @ 125 mls/hr IV DIRECT SEAN Last Admin: 09/06/21 05:30 Dose: 125 mls/hr Potassium Chloride (Kcl 20meq/100ml) 20 meq in 100 mls @ 100 mls/hr IV Q1H SEAN Stop: 09/06/21 15:59 Sodium Chloride (Nacl 0.9% 1000 Ml) 3,000 mls @ 999 mls/hr IV BOLUS ONE Stop: 09/06/21 14:40 Fentanyl Citrate (Fentanyl Drip Premix) 2,000 mcg in 100 mls @ 7.938 mls/hr IV TITR SEAN; Protocol Sodium Bicarbonate 150 meq/ (Sterile Water) 1,150 mls @ 150 mls/hr IV DIRECT SEAN NORepinephrine/NS 8 MG-250 ML (Norepinephrine/Ns 8 Mg-250 Ml (Double Conc)) 8 mg in 250 mls @ 3.75 mls/hr IV TITRATE SEAN; Protocol Vasopressin 20 unit/ Sodium (Chloride) 101 mls @ 9.09 mls/hr IV TITR SEAN; Katarzyna col Oxycodone/Acetaminophen (Oxycodone /Acetaminophen 5-325mg Tab) 1 tab PO Q16H PRN PRN Reason: Pain, Moderate (4-6) Sodium Chloride (Sodium Chloride 0.9% 10 Ml Flush Syringe) 10 ml IV BID SEAN Last Admin: 09/06/21 10:13 Dose: 10 ml Sodium Chloride (Sodium Chloride 0.9% 10 Ml Flush Syringe) 10 ml IV PRN PRN PRN Reason: LINE FLUSH Physical Examination Vital signs: Vital Signs Pulse Resp BP Pulse Ox 91 H 30 H 114/91 97 09/05/21 16:34 09/05/21 16:34 09/05/21 16:34 09/05/21 16:34 Results - Laboratory Findings CBC and BMP: 09/05/21 17:10 09/06/21 12:00 ABG ABG pH 6.955 pH Units (7.350-7.450) L* 09/06/21 12:00 POC ABG pCO2 48.1 mmHg (32.0-48.0) H 09/05/21 19:30 ABG pCO2 65.1 mm Hg 09/06/21 12:00 POC ABG pO2 142.6 mmHg (83-108) H 09/05/21 19:30 ABG pO2 63.2 mm Hg (80.0-90.0) L 09/06/21 12:00 POC ABG HCO3 14.7 09/05/21 19:30 ABG O2 Saturation 73.8 % (95.0-99.0) L 09/06/21 12:00 Abnormal lab findings: Abnormal Labs 09/05/21 09/05/21 09/05/21 16:49 17:10 17:10 RBC 3.33 L Hgb 9.0 L MCV 122 H MCH 27 L MCHC 22 L RDW 19.1 H Lymph % (Auto) 4.[address] [place] % (Auto) 13.5 H Lymph # (Auto) 0.[address] [place] # (Auto) 1.4 H Seg Neutrophils % 81.2 H Seg Neutrophils # 8.3 H ABG pH POC ABG pCO2 POC ABG pO2 ABG pO2 ABG HCO3 ABG O2 Saturation ABG Base Excess ABG Hemoglobin VBG pH Oxyhemoglobin Sodium Potassium Chloride Carbon Dioxide BUN Creatinine Glucose POC Glucose > 600 H Calcium Phosphorus 5.10 H Magnesium 3.10 H AST ALT Alkaline Phosphatase Total Creatine Kinase CK-MB (CK-2) Total Protein Albumin Urine WBC (Auto) 09/05/21 09/05/21 09/05/21 17:10 18:00 18:18 RBC Hgb MCV MCH MCHC RDW Lymph % (Auto) [place] % (Auto) Lymph # (Auto) [place] # (Auto) Seg Neutrophils % Seg Neutrophils # ABG pH 7.135 L* POC ABG pCO2 POC ABG pO2 ABG pO2 50.4 L ABG HCO3 16.4 L ABG O2 Saturation 68.2 L ABG Base Excess -12.3 L ABG Hemoglobin 9.4 L VBG pH 7.126 L* Oxyhemoglobin 65.2 L Sodium Potassium Chloride Carbon Dioxide BUN Creatinine Glucose POC Glucose > 600 H Calcium Phosphorus Magnesium AST ALT Alkaline Phosphatase Total Creatine Kinase 1772 H CK-MB (CK-2) 18.7 H Total Protein Albumin Urine WBC (Auto) 09/05/21 09/05/21 09/05/21 18:56 18:56 19:30 RBC Hgb MCV MCH MCHC RDW Lymph % (Auto) [place] % (Auto) Lymph # (Auto) [place] # (Auto) Seg Neutrophils % Seg Neutrophils # ABG pH 7.104 L POC ABG pCO2 48.1 H POC ABG pO2 142.6 H ABG pO2 ABG HCO3 ABG O2 Saturation ABG Base Excess ABG Hemoglobin 9.4 L VBG pH Oxyhemoglobin Sodium 129 L D 130 L Potassium 3.0 L D 3.1 L Chloride 96.7 L 97.6 L Carbon Dioxide 14 L 14 L BUN 35 H 36 H Creatinine 2.9 H D 2.9 H Glucose 2321 H* 2304 H* POC Glucose Calcium 7.2 L 7.2 L Phosphorus Magnesium AST 65 H ALT 73 H Alkaline Phosphatase 182 H Total Creatine Kinase CK-MB (CK-2) Total Protein 5.4 L D Albumin 2.9 L Urine WBC (Auto) 09/05/21 09/05/21 09/05/21 20:02 21:14 21:41 RBC Hgb MCV MCH MCHC RDW Lymph % (Auto) [place] % (Auto) Lymph # (Auto) [place] # (Auto) Seg Neutrophils % Seg Neutrophils # ABG pH POC ABG pCO2 POC ABG pO2 ABG pO2 ABG HCO3 ABG O2 Saturation ABG Base Excess ABG Hemoglobin VBG pH Oxyhemoglobin Sodium 124 L Potassium Chloride 95.6 L Carbon Dioxide 14 L BUN 37 H Creatinine 3.3 H Glucose 2233 H* POC Glucose > 600 H Calcium 7.2 L Phosphorus Magnesium AST ALT Alkaline Phosphatase Total Creatine Kinase CK-MB (CK-2) Total Protein Albumin Urine WBC (Auto) 8.0 H 09/05/21 09/05/21 09/06/21 23:55 Unknown 02:50 RBC Hgb MCV MCH MCHC RDW Lymph % (Auto) [place] % (Auto) Lymph # (Auto) [place] # (Auto) Seg Neutrophils % Seg Neutrophils # ABG pH POC ABG pCO2 POC ABG pO2 ABG pO2 ABG HCO3 ABG O2 Saturation ABG Base Excess ABG Hemoglobin VBG pH Oxyhemoglobin Sodium 129 L Potassium 2.0 L* 2.4 L* D 3.1 L D Chloride 96.9 L 109.7 H Carbon Dioxide 11 L 13 L 13 L BUN 36 H 37 H 36 H Creatinine 3.5 H 3.4 H 3.9 H Glucose 1991 H* 2314 H* 1671 H* POC Glucose Calcium 7.5 L 8.0 L 7.7 L Phosphorus 2.40 L D Magnesium 2.90 H AST ALT Alkaline Phosphatase Total Creatine Kinase CK-MB (CK-2) Total Protein Albumin Urine WBC (Auto) 09/06/21 09/06/21 09/06/21 05:10 08:31 12:00 RBC Hgb MCV MCH MCHC RDW Lymph % (Auto) [place] % (Auto) Lymph # (Auto) [place] # (Auto) Seg Neutrophils % Seg Neutrophils # ABG pH 6.955 L* POC ABG pCO2 POC ABG pO2 ABG pO2 63.2 L ABG HCO3 14.2 L ABG O2 Saturation 73.8 L ABG Base Excess -16.9 L ABG Hemoglobin 7.7 L VBG pH Oxyhemoglobin 72.1 L Sodium Potassium 3.5 L Chloride 111.3 H Carbon Dioxide 12 L BUN 37 H Creatinine 4.0 H Glucose 1564 H* 1310 H* POC Glucose Calcium 7.7 L Phosphorus Magnesium AST ALT Alkaline Phosphatase Total Creatine Kinase CK-MB (CK-2) Total Protein Albumin Urine WBC (Auto)
[2021-09-06 12:46] LABS: Calcium 7.9 mg/dL (8.4-10.2)
[2021-09-06] MEDS: VASOPRESSIN 20 UNIT in SODIUM CHLORIDE 0.9% 100 ML IV SCH ×2 (12:50→22:43)
[2021-09-06] MEDS ORDERED: LIP THERAPY VASELINE TP PRN (12:52)
[2021-09-06] MEDS ORDERED: MINERAL OIL/PETROLATUM, WHITE OPHTH OINT 3.5 GM OU PRN (12:52)
[2021-09-06] MEDS ORDERED: AZITHROMYCIN/NS 500 MG/250 ML 500 MG/250 ML BAG IV SCH (13:00)
[2021-09-06] MEDS ORDERED: cefTRIAXone/NS 2 GM/100 ML 2 GM/100 ML BAG IV SCH (13:00)
[2021-09-06] MEDS ORDERED: POTASSIUM CHLORIDE 20 MEQ 20 MEQ/100 ML BAG IV SCH (14:00)
--- NOTE | 2021-09-06 14:08 | XRay Report ---
CHEST 1 VIEW INDICATION: ETT placement. COMPARISON: Yesterday FINDINGS: Support devices: Endotracheal tube terminates 4.8 cm superior to the herb. Right IJ venous catheter terminates in the superior SVC. Heart: Within normal limits. Lungs/Pleura: There is poor inspiration with hypoventilatory changes at the lung bases. No obvious in filtrate, pleural effusion or pneumothorax. Additional findings: None. IMPRESSION: Poor inspiration. Lines and tubes as described. ABDOMEN 1 VIEW(S) INDICATION / CLINICAL INFORMATION: OG tube placement. COMPARISON: None available. FINDINGS: TUBES / LINES: The OG tube terminates in the distal stomach. BOWEL GAS PATTERN: There is moderate gas throughout the stomach, small bowel and colon suggestive of an ileus. FREE AIR / EXTRALUMINAL GAS: No obvious free air. ADDITIONAL FINDINGS: No significant additional findings. IMPRESSION: The OG tube terminates in the distal stomach in adequate position. There is moderate gas throughout t he GI system suggestive of an ileus. Signer Name: Ottoniel Núñez Jr, MD Signed: 09/06/2021 2:04 PM Workstation Name: [id number]
[2021-09-06] MEDS ORDERED: CALC GLUCONATE 1GM/NS 100 ML 1 GM/100 ML BAG IV ONE (15:00)
[2021-09-06 16:09] LABS: ABG Base Excess -11.6 mmol/L (-2.0-3.0); ABG HCO3 15.5 mmol/L (20.0-26.0); ABG Methemoglobin 0.5 % (0.0-1.5); ABG Oxygen Saturation 99.4 % (95.0-99.0); ABG PH 7.206 pH Units (7.350-7.450)
[2021-09-06 16:10] LABS: ABG PO2 272.4 mm Hg (80.0-90.0)
--- NOTE | 2021-09-06 16:30 | Consultation ---
DATE OF CONSULTATION: 09/06/2021 PULMONARY CRITICAL CARE CONSULT NOTE CONSULTING PHYSICIAN: Dr. Delilah Mujica, ER physician. REASON FOR CONSULTATION: Acute hypoxemic respiratory failure, diabetic ketoacidosis, shock. CHIEF COMPLAINT AND HISTORY OF PRESENT ILLNESS: The patient is a now 35-year-old morbidly obese female with past medical history significant amongst other things for a diagnosis of obesity hypoventilation syndrome and diabetes, was brought into the Emergency Room confused with diminished cognition, unable to provide a history per the ER notes. The family mentioned that they found her confused, looking the same way at about 9:00 a.m. yesterday morning. EMS found the patient as described. In the Emergency Room, she was diagnosed with DKA, complicated by an acute metabolic encephalopathy, severe metabolic acidosis and acute kidney injury and with a serum glucose initially of about 2300. She was started on DKA protocol and admitted to the Intensive Care Unit and we were asked to assist with management. The patient, however, continued to deteriorate, the acidosis got worse, but unfortunately she also developed hypercapnia along with this and overall ultimately decompensated. When I stopped in to see her, she actually had a seizure, believed related to the severe metabolic acidosis amongst other things. She was beginning to desaturate. We were unable to get a good clear waveform. The seizure stopped spontaneously after about 20 seconds to 30 seconds. She was intubated rapid sequence at the bedside and placed on mechanical ventilatory support. This really is as much of the history of presentation as I have. The patient's tobacco use history is unknown, but according to the records, denied tobacco abuse in the past. PAST MEDICAL HISTORY: Diabetes, hypertension, morbid obesity, obesity hypoventilation syndrome, medication noncompliance, hypertension. PAST SURGICAL HISTORY: Unknown. MEDICATIONS: She was on at the time I stopped by to see her according to the medication administration record included the following: Tylenol 650 mg p.o. q. 6 hours p.r.n. mild pain or fevers, all p.o. meds via the feeding tube now. Albuterol 2.5 mg nebulized q. 3 hours p.r.n. shortness of breath. Fentanyl drip has just been ordered for sedation, heparin 5000 units subQ q. 12 hours, Dilaudid 0.5 mg IV q. 23 hours p.r.n. severe pain, insulin drip was going at 22 units per hour. Levophed drip was started and was going at 30 mcg per minute. A vasopressin drip was pending. Percocet 5/325 one tablet p.o. q. 16 hours p.r.n. moderate pain. Normal saline has been bolused, a total of about 3 liters this morning. Sodium bicarb 150 mEq ____ liter of sterile water to be run at 150 mL per hour and vasopressin at 0.03 units per minute. ALLERGIES: No known drug allergies. DIET: Morbidly obese, BMI of 64.0. Acute weight loss or gain history is unknown. FAMILY AND SOCIAL HISTORY: Lives in the community. According to the records, no alcohol, tobacco or illicit drug use or abuse. FAMILY HISTORY: There is a family history of diabetes and hypertension. REVIEW OF SYSTEMS: Unobtainable secondary to the patient's medical and mental condition since she has been here. No gross hematochezia or melena, no gross hematuria, no hematemesis, no bloody tracheal secretions at this time. She has had a witnessed seizure. Review of systems is otherwise unobtainable or as in body of history above. PHYSICAL EXAMINATION: At presentation in the Emergency Room: VITAL SIGNS: Afebrile, temperature 97.3 degrees Fahrenheit, pulse of 91, respiratory rate of up to 36, described as labored and shallow, blood pressure 114/91, O2 sats were 97%. Inspired oxygen concentration at that time was not recorded. When I stopped by to walk in the room, she was on 100% nonrebreather mask. She had apparently earlier been on 4 liters nasal cannula. GENERAL: She is a young, morbidly obese female. Normocephalic, atraumatic, unrested in bed with increased respiratory effort at rest. HEAD, EYES, EARS, NOSE AND THROAT: Anicteric. No conjunctival erythema. Oropharynx was dry. NECK: No gross jugular venous distention, no thyromegaly. She does have a large neck circumference. Grossly, there were no palpable lymph nodes in the supraclavicular or submandibular lymph node chains. LUNGS: Auscultation of both lung muñoz revealed bilateral rales, no wheezing. HEART: Sounds 1 and 2 are heard at the time of my evaluation. Regular tachycardia without overt rubs or murmurs. ABDOMEN: Soft, full, protuberant. Bowel sounds are positive, nontender. No palpable hepatosplenomegaly. EXTREMITIES: Without overt digital clubbing or cyanosis. No pedal edema. Pedal pulses are 2+ bilaterally. NEUROLOGIC: Pupils were equal, round, about 3 mm at the time I evaluated her. Extraocular muscle movements could not really be adequately assessed. She has spontaneous movements to all 4 extremities. SKIN: Normal turgor in the areas examined without overt cellulitis or rash. She had a right IJ central venous catheter in place. No significant bleed, no exudation around the stoma. Please see the wound care nurses' notes for full description of her skin. PSYCHIATRIC: Mood and affect could not be assessed. She was intermittently agitated. LABORATORY DATA: From my review are as follows: Admission white cell count 10,200, hemoglobin 9.0, hematocrit 40.7, MCV was 122, platelet count was 163. Arterial blood gas at presentation showed a pH of 7.10, pCO2 of 48 and a pO2 of 143 on 50% FiO2. Serum sodium was 130, potassium 3.1, chloride 98, bicarb 14, BUN 36, creatinine 2.9, glucose 2304, phosphorus 5.1, magnesium 3.1. AST 65, ALT 73. Ammonia within normal limits. Troponin within normal limits. Albumin was low at 2.9. Urine test was negative. Urinalysis showed large amount of blood, moderate leukocyte esterase, 8 white cells per high power field. Urine drug screen was presumptive negative. Alcohol level was non-detected. No cultures. Chest x-ray, initially it is a lordotic film, shows hypoventilation with mild interstitial infiltrates. A CT of the head was read as negative. A repeat chest x-ray post central line shows no pneumothorax and mild elevation of the right hemidiaphragm and increasing bilateral pulmonary infiltrates. ASSESSMENT: 1. Acute hypoxemic respiratory failure, now on mechanical ventilatory support. 2. Witnessed seizure. 3. Diabetic ketoacidosis. 4. Obesity hypoventilation syndrome. 5. Acute kidney injury. 6. Rhabdomyolysis with a creatine kinase of 1772. 7. Anemia that is microcytic. 8. Acute toxic metabolic encephalopathy. 9. Medication noncompliance. 10. History of hypertension. PLAN: We will keep her on full mechanical ventilatory support. We will have her hyperventilate her in the short time, tidal volume 500, rate of 30. This is to improve the acidosis with respiratory compensation. Oxygen will be weaned to keep sats greater than or equal to 90%. Aspiration precautions will be maintained. Ventilator-associated pneumonia bundle has been introduced. She will be continued on vasopressors that will be weaned to target a mean arterial pressure of greater than or equal to 65 mmHg. Aggressive volume resuscitation will be continued. I will bolus a liter of the 3 amps of bicarb per liter of sterile water and then run at 150. Two amps of bicarb have been pushed post an arterial ABG that showed a pH of 6.95. She received 3 amps of IV bicarb push earlier. We will continue with IV insulin therapy and adjust per the DKA protocol. Electrolytes were followed and corrected as necessary. Her arterial blood gas will be repeated in about a couple of hours, a post-intubation arterial blood gas. She will remain n.p.o. for now in the short time. Hopefully, the acute kidney injury is prerenal and should improve; however, because it is going in the wrong direction, I will do a Nephrology consult at this point in time for early evaluation and intervention. I do note that a web services architect has been consulted already. She is appropriately on DVT prophylaxis. She will be placed on GI prophylaxis. Flu and pneumonia vaccination will be addressed per protocol. We will address counseling regarding compliance once she is feeling better hopefully. A CT of the brain is negative. I will get a CVP and trend as necessary to help guide clinical decision making. Lactic acid level is going to be ordered. Procalcitonin level is going to be ordered. If those are significantly elevated, I will empirically begin her on community-acquired pneumonia therapy including Rocephin for a possible UTI. Flu and pneumonia vaccination will be addressed per protocol. Thank you very much for the consult, Dr. Mujica. We will follow along and make further recommendations as picture progresses/becomes clearer. She is critically ill on life-sustaining interventions including mechanical ventilatory support and vasopressors, at very high risk of from cardiopulmonary system decompensation at this time. We spent about 45-50 minutes of critical care time without overlap and excluding any procedural time that may be necessary. TID: [id number] RECEIPT: [id number] WERNER/RAAD/MARIBEL
[2021-09-06 16:42] LABS: Mean Corpuscular HGB Conc 26 % (30-34); Mean Corpuscular Volume 96 fl (79-97); Red Blood Count 3.34 M/mm3 (3.65-5.03); Red Cell Distribution Width 19.2 % (13.2-15.2)
[2021-09-06 16:43] LABS: Hematocrit 32.2 % (30.3-42.9); Hemoglobin 8.5 gm/dl (10.1-14.3); Platelet Count 97 K/mm3 (140-440)
[2021-09-06 16:48] LABS: INR 1.31 (0.87-1.13)
--- NOTE | 2021-09-06 17:04 | XRay Report ---
XR chest 1V ap INDICATION / CLINICAL INFORMATION: CVC placement. COMPARISON: Radiograph from earlier same day. FINDINGS: SUPPORT DEVICES: Right IJ CVC terminates over the cavoatrial junction/right atrium. Endotracheal tube and enteric catheter are stable as visualized. HEART /PULMONARY VASCULATURE: Unchanged. LUNGS / PLEURA: Lung parenchyma is not significantly changed. No pneumothorax. IMPRESSION: Right IJ CVC terminates over the cavoatrial junction/right atrium. Otherwise stable chest. Signer Name: Tony Chu MD Signed: 09/06/2021 4:59 PM Workstation Name: [id number]
[2021-09-06 17:25] LABS: Anisocytosis Few; Basophils % (Manual) 0 % (0.0-1.8); Eosinophils % (Manual) 0 % (0.0-4.3); Hypochromasia 1+; Total Cells Counted 100
[2021-09-06 17:53] LABS: Calcium 7.2 mg/dL (8.4-10.2)
--- NOTE | 2021-09-06 18:39 | Procedure Note ---
Date of procedure: 09/06/21 Pre-op diagnosis: Severe Metabolic Acidosis Post-op diagnosis: same Procedure: RIJ Central Line Exchange Patient was evaluated and required a central line exchanged, current CVC is not long enough Informed consent was obtained from patient's sister, Ann Rooney A time-out was completed verifying correct patient, procedure, site, and positioning. Hand hygiene were performed immediately prior to the procedure and sterile technique was used throughout the procedure. Previous Triple Lumen CVC and site were impregnated and prepped with iodine, then the site was then again scrubbed with chlorhexidine and draped in a sterile fashion. A guidewire exch jaylin was performed under sterile condition the triple lumen catheter was removed and a new 16cm central line catheter was introduced using the Seldinger technique.The catheter threaded smoothly over the guidewire and advanced easily into the vein. Brisk blood return was observed from each lumen and each lumen were flushed and clamped. 1% Lidocaine was used to anesthetize the surrounding skin area then the catheter was sutured in place, a Biopatch was placed at the insertion site, and covered with a sterile dressing. Patient tolerated the procedure well, no signs of any adverse reaction noted. CXR shows good placement without any complications. CVC is ready for use. Total Time Spent with Patient (Minutes): 60 minutes Anesthesia: local Surgeon: KYMBERLY DENNY Sanitary Inspector: RASHEL MEJIA Estimated blood loss: minimal Condition: critical Disposition: ICU
[2021-09-06 19:28] LABS: Creatinine,Urine 87.4 mg/dL (0.1-20.0)
[2021-09-06] MEDS: PHENYLEPHRINE 100 MG in SODIUM CHLORIDE 0.9% 90 ML IV SCH ×2 (20:17→23:54)
[2021-09-06] MEDS ORDERED: SODIUM CHLORIDE 0.9% 1000 ML 2,000 ML ONE (20:57)
--- NOTE | 2021-09-06 21:04 | Progress Note ---
Assessment and Plan - Patient Problems (1) DKA (diabetic ketoacidosis) Current Visit: Yes Status: Acute Qualifiers: Diabetes mellitus type: type 1 (2) Obesity hypoventilation syndrome Current Visit: Yes Status: Acute (3) Hyponatremia syndrome Current Visit: Yes Status: Acute (4) MARITZA (acute kidney injury) Current Visit: Yes Status: Acute (5) Rhabdomyolysis Current Visit: Yes Status: Acute Qualifiers: Encounter type: initial encounter (6) Acute metabolic encephalopathy Current Visit: No Status: Acute (7) DVT prophylaxis Current Visit: Yes Status: Acute (8) Advance care planning Current Visit: No Status: Acute History Interval history: A CODE BLUE was called. I presented to the bedside and the patient was found to be in asystolic arrest. The patient was treated" with ACLS protocol with return of perfusing cardiac rhythm. 65 minutes bedside critical care time dedicated to patient care, lab review. Hospitalist Physical - Constitutional Vitals: Temp Pulse Resp BP Pulse Ox 98.2 F 93 H 30 H 78/30 93 09/06/21 20:00 09/06/21 19:46 09/06/21 18:30 09/06/21 18:00 09/06/21 19:46 General appearance: Present: mild distress, obese, other (Intubated and sedated) HEART Score - HEART Score Troponin: Troponin T < 0.010 ng/mL (0.00-0.029) 09/05/21 18:00 Results - Labs CBC & Chem 7: 09/06/21 Unknown 09/06/21 17:00 Labs: Laboratory Last Values WBC 20.7 K/mm3 (4.5-11.0) H 09/06/21 Unknown RBC 3.34 M/mm3 (3.65-5.03) L 09/06/21 Unknown Hgb 8.5 gm/dl (10.1-14.3) L 09/06/21 Unknown Hct 32.2 % (30.3-42.9) D 09/06/21 Unknown MCV 96 fl (79-97) 09/06/21 Unknown MCH 25 pg (28-32) L 09/06/21 Unknown MCHC 26 % (30-34) L 09/06/21 Unknown RDW 19.2 % (13.2-15.2) H 09/06/21 Unknown Plt Count 97 K/mm3 (140-440) L 09/06/21 Unknown Lymph % (Auto) 4.8 % (13.4-35.0) L 09/05/21 17:10 Love % (Auto) 13.5 % (0.0-7.3) H 09/05/21 17:10 Eos % (Auto) 0.0 % (0.0-4.3) 09/05/21 17:10 Baso % (Auto) 0.5 % (0.0-1.8) 09/05/21 17:10 Lymph # (Auto) 0.5 K/mm3 (1.2-5.4) L 09/05/21 17:10 Love # (Auto) 1.4 K/mm3 (0.0-0.8) H 09/05/21 17:10 Eos # (Auto) 0.0 K/mm3 (0.0-0.4) 09/05/21 17:10 Baso # (Auto) 0.1 K/mm3 (0.0-0.1) 09/05/21 17:10 Add Manual Diff Complete 09/06/21 Unknown Total Counted 100 09/06/21 Unknown Seg Neutrophils % Distribution Operation Supervisor 09/06/21 Unknown Seg Neuts % (Manual) 82.0 % (40.0-70.0) H 09/06/21 Unknown Band Neutrophils % 0 % 09/06/21 Unknown Lymphocytes % (Manual) 7.0 % (13.4-35.0) L 09/06/21 Unknown Reactive Lymphs % (Man) 0 % 09/06/21 Unknown Monocytes % (Manual) 11.0 % (0.0-7.3) H 09/06/21 Unknown Eosinophils % (Manual) 0 % (0.0-4.3) 09/06/21 Unknown Basophils % (Manual) 0 % (0.0-1.8) 09/06/21 Unknown Metamyelocytes % 0 % 09/06/21 Unknown Myelocytes % 0 % 09/06/21 Unknown Promyelocytes % 0 % 09/06/21 Unknown Blast Cells % 0 % 09/06/21 Unknown Nucleated RBC % Not Reportable 09/06/21 Unknown Seg Neutrophils # 8.3 K/mm3 (1.8-7.7) H 09/05/21 17:10 Seg Neutrophils # Man 17.0 K/mm3 (1.8-7.7) H 09/06/21 Unknown Band Neutrophils # 0.0 K/mm3 09/06/21 Unknown Lymphocytes # (Manual) 1.4 K/mm3 (1.2-5.4) 09/06/21 Unknown Abs React Lymphs (Man) 0.0 K/mm3 09/06/21 Unknown Monocytes # (Manual) 2.3 K/mm3 (0.0-0.8) H 09/06/21 Unknown Eosinophils # (Manual) 0.0 K/mm3 (0.0-0.4) 09/06/21 Unknown Basophils # (Manual) 0.0 K/mm3 (0.0-0.1) 09/06/21 Unknown Metamyelocytes # 0.0 K/mm3 09/06/21 Unknown Myelocytes # 0.0 K/mm3 09/06/21 Unknown Promyelocytes # 0.0 K/mm3 09/06/21 Unknown Blast Cells # 0.0 K/mm3 09/06/21 Unknown WBC Morphology Not Reportable 09/06/21 Unknown Hypersegmented Neuts Not Reportable 09/06/21 Unknown Hyposegmented Neuts Not Reportable 09/06/21 Unknown Hypogranular Neuts Not Reportable 09/06/21 Unknown Smudge Cells Not Reportable 09/06/21 Unknown Toxic Granulation Not Reportable 09/06/21 Unknown Toxic Vacuolation Not Reportable 09/06/21 Unknown Dohle Bodies Not Reportable 09/06/21 Unknown Pelger-Huet Anomaly Not Reportable 09/06/21 Unknown Drew Rods Not Reportable 09/06/21 Unknown Platelet Estimate Not Reportable 09/06/21 Unknown Clumped Platelets Not Reportable 09/06/21 Unknown Plt Clumps, EDTA Not Reportable 09/06/21 Unknown Large Platelets Not Reportable 09/06/21 Unknown Giant Platelets Not Reportable 09/06/21 Unknown Platelet Satelliting Not Reportable 09/06/21 Unknown Plt Morphology Comment Not Reportable 09/06/21 Unknown RBC Morphology Not Reportable 09/06/21 Unknown Dimorphic RBCs Not Reportable 09/06/21 Unknown Polychromasia Not Reportable 09/06/21 Unknown Hypochromasia 1+ 09/06/21 Unknown Poikilocytosis Not Reportable 09/06/21 Unknown Anisocytosis Few 09/06/21 Unknown Microcytosis Rare 09/06/21 Unknown Macrocytosis Not Reportable 09/06/21 Unknown Spherocytes Not Reportable 09/06/21 Unknown Pappenheimer Bodies Not Reportable 09/06/21 Unknown Sickle Cells Not Reportable 09/06/21 Unknown Target Cells Not Reportable 09/06/21 Unknown Tear Drop Cells Not Reportable 09/06/21 Unknown Ovalocytes Not Reportable 09/06/21 Unknown Helmet Cells Not Reportable 09/06/21 Unknown [place] Bodies Not Reportable 09/06/21 Unknown [place] Rings Not Reportable 09/06/21 Unknown [place] Cells Not Reportable 09/06/21 Unknown Bite Cells Not Reportable 09/06/21 Unknown Crenated Cell Not Reportable 09/06/21 Unknown Elliptocytes Not Reportable 09/06/21 Unknown Acanthocytes (Spur) Not Reportable 09/06/21 Unknown Rouleaux Not Reportable 09/06/21 Unknown Hemoglobin C Crystals Not Reportable 09/06/21 Unknown Schistocytes Not Reportable 09/06/21 Unknown Malaria parasites Not Reportable 09/06/21 Unknown Saleem Bodies Not Reportable 09/06/21 Unknown Hem Pathologist Commnt No 09/06/21 Unknown PT 17.8 Sec. (12.2-14.9) H 09/06/21 Unknown INR 1.31 (0.87-1.13) H 09/06/21 Unknown ABG pH 7.206 pH Units (7.350-7.450) L 09/06/21 15:50 POC ABG pCO2 48.1 mmHg (32.0-48.0) H 09/05/21 19:30 ABG pCO2 40.0 mm Hg 09/06/21 15:50 POC ABG pO2 142.6 mmHg (83-108) H 09/05/21 19:30 ABG pO2 272.4 mm Hg (80.0-90.0) H 09/06/21 15:50 POC ABG HCO3 14.7 09/05/21 19:30 ABG HCO3 15.5 mmol/L (20.0-26.0) L 09/06/21 15:50 ABG O2 Saturation 99.4 % (95.0-99.0) H 09/06/21 15:50 ABG O2 Content 12.7 (0.0-44) 09/06/21 15:50 POC ABG Base Excess -14.2 09/05/21 19:30 ABG Base Excess -11.6 mmol/L (-2.0-3.0) L 09/06/21 15:50 ABG Hemoglobin 8.8 gm/dl (12.0-16.0) L 09/06/21 15:50 ABG Oxyhemoglobin 97.3 (94-98) 09/05/21 19:30 ABG Carboxyhemoglobin 1.4 % (0.0-5.0) 09/06/21 15:50 ABG Methemoglobin 0.5 % (0.0-1.5) 09/06/21 15:50 VBG pH 7.126 (7.320-7.420) L* 09/05/21 17:10 Oxyhemoglobin 97.6 % (95.0-99.0) 09/06/21 15:50 Carboxyhemoglobin 0.7 (0.5-1.5) 09/05/21 19:30 FiO2 100 % 09/06/21 15:50 FiO2 % 50 09/05/21 19:30 Sodium 156 mmol/L (137-145) H D 09/06/21 17:00 Potassium 5.1 mmol/L (3.6-5.0) H D 09/06/21 17:00 Chloride 121.7 mmol/L (98-107) H 09/06/21 17:00 Carbon Dioxide 15 mmol/L (22-30) L 09/06/21 17:00 Anion Gap 24 mmol/L 09/06/21 17:00 BUN 32 mg/dL (7-17) H 09/06/21 17:00 Creatinine 4.9 mg/dL (0.6-1.2) H 09/06/21 17:00 Estimated GFR 12 ml/min 09/06/21 17:00 BUN/Creatinine Ratio 7 % 09/06/21 17:00 Glucose 492 mg/dL (65-100) H 09/06/21 17:00 POC Glucose 323 mg/dL (70-105) H 09/06/21 20:57 Lactic Acid 7.20 mmol/L (0.7-2.0) H* 09/06/21 17:00 Calcium 7.2 mg/dL (8.4-10.2) L 09/06/21 17:00 Phosphorus 3.60 mg/dL (2.5-4.5) D 09/06/21 17:00 Magnesium 2.30 mg/dL (1.7-2.3) 09/06/21 17:00 Total Bilirubin 0.20 mg/dL (0.1-1.2) 09/05/21 18:56 AST 65 units/L (5-40) H 09/05/21 18:56 ALT 73 units/L (7-56) H 09/05/21 18:56 Alkaline Phosphatase 182 units/L (35-129) H 09/05/21 18:56 Ammonia 50.0 umol/L (25-60) 09/05/21 Unknown Total Creatine Kinase 1772 units/L (30-135) H 09/05/21 18:00 CK-MB (CK-2) 18.7 ng/mL (0.0-4.0) H 09/05/21 18:00 CK-MB (CK-2) Rel Index 1.0 (0-4) 09/05/21 18:00 Troponin T < 0.010 ng/mL (0.00-0.029) 09/05/21 18:00 C-Reactive Protein 11.00 mg/dL (0.00-1.30) H 09/06/21 14:25 Total Protein 5.4 g/dL (6.3-8.2) L D 09/05/21 18:56 Albumin 2.9 g/dL (3.9-5) L 09/05/21 18:56 Albumin/Globulin Ratio 1.2 % 09/05/21 18:56 Triglycerides 213 mg/dL (2-149) H 09/06/21 12:00 Procalcitonin 6.97 ng/mL (<0.15) 09/06/21 14:50 HCG, Quant < 2 mIU/mL (0-4) 09/05/21 17:10 Urine Color Yellow (Yellow) 09/05/21 21:41 Urine Turbidity Slightly-cloudy (Clear) 09/05/21 21:41 Urine pH 6.0 (5.0-7.0) 09/05/21 21:41 Ur Specific [place] 1.026 (1.003-1.030) 09/05/21 21:41 Urine Protein 30 mg/dl mg/dL (Negative) 09/05/21 21:41 Urine Glucose (UA) >=500 mg/dL (Negative) 09/05/21 21:41 Urine Ketones Neg mg/dL (Negative) 09/05/21 21:41 Urine Blood Lg (Negative) 09/05/21 21:41 Urine Nitrite Neg (Negative) 09/05/21 21:41 Urine Bilirubin Neg (Negative) 09/05/21 21:41 Urine Urobilinogen < 2.0 mg/dL (<2.0) 09/05/21 21:41 Ur Leukocyte Esterase Mod (Negative) 09/05/21 21:41 Urine WBC (Auto) 8.0 /HPF (0.0-6.0) H 09/05/21 21:41 Urine RBC (Auto) 5.0 /HPF (0.0-6.0) 09/05/21 21:41 U Epithel Cells (Auto) 1.0 /HPF (0-13.0) 09/05/21 21:41 Urine Mucus Few /HPF 09/05/21 21:41 Urine Creatinine 87.4 mg/dL (0.1-20.0) H 09/06/21 18:55 Urine Sodium 10 mmol/L 09/06/21 18:55 Urine Opiates Screen Presumptive negative 09/05/21 21:41 Urine Methadone Screen Presumptive negative 09/05/21 21:41 Ur Barbiturates Screen Presumptive negative 09/05/21 21:41 Ur Phencyclidine Scrn Presumptive negative 09/05/21 21:41 Ur Amphetamines Screen Presumptive negative 09/05/21 21:41 U Benzodiazepines Scrn Presumptive negative 09/05/21 21:41 Urine Cocaine Screen Presumptive negative 09/05/21 21:41 U Marijuana (THC) Screen Presumptive negative 09/05/21 21:41 Drugs of Abuse Note Disclamer 09/05/21 21:41 Plasma/Serum Alcohol < 0.01 % (0-0.07) 09/05/21 17:10 Myers/IV: Voiding Method Indwelling Catheter Active Medications - Current Medications Current Medications: Generic Name Dose Route Start Last Admin Trade Name Freq PRN Reason Stop Dose Admin Acetaminophen 650 mg 09/05/21 19:44 Acetaminophen 325 Mg Tab PO Q6H PRN Pain MILD(1-3)/Fever >100.5/MUÑOZ Albuterol 2.5 mg 09/05/21 19:44 Albuterol 2.5 Mg/3 Ml Nebu IH Q3HRT PRN Shortness Of Breath Dextrose 0 ml 09/05/21 16:54 Dextrose 50% In Water (25gm) 50 Ml Syringe IV Q30MIN PRN Hypoglycemia Protocol Famotidine 10 mg 09/06/21 22:00 Famotidine 20 Mg/2 Ml Inj IV BID SEAN Fentanyl 50 mcg 09/06/21 11:50 09/06/21 12:30 Fentanyl 100 Mcg/2 Ml Inj IV 50 mcg Q10MIN PRN Administration ANALGESIA Heparin Sodium (Porcine) 5,000 unit 09/05/21 22:00 09/06/21 10:13 Heparin 5,000 Unit/1 Ml Vial SUB-Q 5,000 unit Q12HR SEAN Administration Hydromorphone HCl 0.5 mg 09/05/21 19:44 Hydromorphone 1 Mg/1 Ml Inj IV Q23H PRN Pain , Severe (7-10) Hydrophilic Ointment 1 applic 09/06/21 12:52 Lip Therapy Vaseline TP Q2HR PRN Dry Lips Insulin Human Regular 100 100 mls @ 1 mls/hr 09/05/21 20:00 09/06/21 19:58 units/ Sodium Chloride IV 29 units/hr TITR SEAN 29 mls/hr Titration Protocol 1 UNITS/HR Fentanyl Citrate 2,000 mcg in 100 mls @ 7.938 mls/hr 09/06/21 12:00 09/06/21 20:29 Fentanyl Drip Premix IV 0 mcg/kg/hr TITR SEAN 0 mls/hr Titration Protocol 1 MCG/KG/HR Sodium Bicarbonate 150 meq/ 1,150 mls @ 150 mls/hr 09/06/21 12:00 09/06/21 12:20 Sterile Water IV 150 mls/hr DIRECT SEAN Administration NORepinephrine/NS 8 MG-250 ML 8 mg in 250 mls @ 3.75 mls/hr 09/06/21 13:00 09/06/21 20:16 Norepinephrine/Ns 8 Mg-250 Ml (Double Conc) IV 30 mcg/min TITRATE SEAN 56.25 mls/hr Administration Protocol 2 MCG/MIN Vasopressin 20 unit/ Sodium 101 mls @ 9.09 mls/hr 09/06/21 13:00 09/06/21 12:50 Chloride IV 0.03 units/min TITR SEAN 9.09 mls/hr Administration Protocol 0.03 UNITS/MIN Azithromycin 500 mg in 250 mls @ 250 mls/hr 09/06/21 13:00 09/06/21 17:00 Zithromax/Ns IV 09/08/21 13:59 Infused Q24H SEAN Infusion Ceftriaxone Sodium 2 gm in 100 mls @ 200 mls/hr 09/06/21 13:00 09/06/21 17:00 Rocephin/Ns 2 Gm/100 Ml IV 09/10/21 13:29 Infused Q24H SEAN Infusion Protocol Phenylephrine HCl 100 mg/ 100 mls @ 3 mls/hr 09/06/21 19:30 09/06/21 20:30 Sodium Chloride IV 60 mcg/min TITR SEAN 3.6 mls/hr Titration Protocol 50 MCG/MIN Multi-Ingred Cream/Lotion/Oil/Oint 1 applic 09/06/21 12:52 Mineral Oil/Petrolatum, White Ophth Oint 3.5 Gm OU Q4HR PRN Dry Eye(s) Oxycodone/Acetaminophen 1 tab 09/05/21 19:44 Oxycodone /Acetaminophen 5-325mg Tab PO Q16H PRN Pain, Moderate (4-6) Senna/Docusate Sodium 1 tab 09/06/21 22:00 Sennosides/Docusate Sodium 8.6/50 Mg Tab FEEDTUBE BID SEAN Sodium Chloride 10 ml 09/05/21 22:00 09/06/21 10:13 Sodium Chloride 0.9% 10 Ml Flush Syringe IV 10 ml BID SEAN Administration Sodium Chloride 10 ml 09/05/21 19:44 Sodium Chloride 0.9% 10 Ml Flush Syringe IV PRN PRN LINE FLUSH Nutrition/Malnutrition Assess - Dietary Evaluation Nutrition/Malnutrition Findings: Nutrition Notes Start: 09/06/21 15:07 Freq: Status: Active Protocol: Document 09/06/21 15:07 VIVIAN (Rec: 09/06/21 15:16 VIVIAN [id number]) Nutrition Notes Need for Assessment generated from: MD Order,Education Initial or Follow up Brief Note Current Diagnosis Acute Kidney Injury,Diabetes, Hypertension Other Pertinent Diagnosis DKA, Metabolic Encephalopathy, Rabdomyolisis, Hyponatremia, OHS. Current Diet NPO (since 09/05 19:46). Height 5 ft 2 in Weight 158.757 kg [place] Body Weight (kg) 50.00 BMI 64.0 Intake Prior to Admission Good Weight change and time frame Pt states not having loss body weight [employer]CH[employer]ECT. Weight Status Morbidly Obese Subjective/Other Information RD consult for nutrition education. Pt currently on NPO. Pt still on critical conditions, not a candidate for Nutrition Education at the time, will assess feasibility on F/U. Percent of energy/protein needs met: Pt currently on NPO. Nutrition Intervention Follow-Up By: 09/08/21 Additional Comments Nutrition education will be provided on F/U, if feasible. When pertinent, start monitoring food tolerance, %PO intake of meals, and BM.
[2021-09-06] MEDS ORDERED: SENNOSIDES/DOCUSATE SODIUM 8.6/50 MG TAB FEEDTUBE SCH (22:00)
[2021-09-06] MEDS ORDERED: FAMOTIDINE 20 MG/2 ML INJ IV SCH (22:00)
[2021-09-06] MEDS ORDERED: EPINEPHrine 1 MG/1 ML 8 MG in SODIUM CHLORIDE 0.9% 250ML 242 ML IV SCH (23:00)
[2021-09-06 23:18] LABS: ABG Base Excess -29.5 mmol/L (-2.0-3.0); ABG HCO3 5.9 mmol/L (20.0-26.0); ABG PCO2 41.8 mm Hg; ABG PO2 41.2 mm Hg (80.0-90.0)
[2021-09-06 23:19] LABS: ABG PH 6.81 pH Units (7.350-7.450)
[2021-09-06 23:20] LABS: ABG Methemoglobin 0.2 % (0.0-1.5); ABG Oxygen Saturation 50.2 % (95.0-99.0)
[2021-09-07] MEDS: PHENYLEPHRINE 100 MG in SODIUM CHLORIDE 0.9% 90 ML IV SCH (00:35)
[2021-09-07] MEDS: NORepinephrine/NS 8 MG-250 ML 8 MG/250 ML INFUS..BTL IV SCH ×2 (00:48→05:02)
[2021-09-07] MEDS ORDERED: DEXTROSE 10% *Hypoglycemia IV ONE (01:26)
[2021-09-07] MEDS ORDERED: DEXTROSE 10% *Hypoglycemia IV PRN (01:41)
[2021-09-07 01:55] VITALS: BP 88/40
[2021-09-07] MEDS: SODIUM BICARBONATE 150 MEQ in WATER FOR INJECTION (PF) 1,000 ML IV SCH (03:00)
[2021-09-07] MEDS ORDERED: DOPamine 800 MG/D5W 250ML 800 MG/250 ML BAG IV SCH (04:00)
[2021-09-07] MEDS ORDERED: SODIUM BICARB 8.4% 50 MEQ/50 ML SYRINGE IV ONE (05:19)
[2021-09-07] MEDS ORDERED: DEXTROSE 10% IN WATER 1,000 ML IV SCH (06:00)
--- NOTE | 2021-09-07 06:57 | Event Note ---
Date: 09/07/21 35-year-old -[place] female who had been on admission for DKA and obesity hypoventilation syndrome was found in asystole. Patient had earlier been made a DNR by family. Upon exam: Patient morbidly obese No response to verbal or deep sternal rub. Pupils were fixed and dilated. Chest: No breath sounds Cardiovascular exam: No peripheral pulses and no heart sounds Abdomen: Distended and firm Extremities: Cold and clammy Central nervous system: No reflexes Patient pronounced at 06:07 AM on September 07, 2021. Family to be immediately notified.
--- NOTE | 2021-09-07 07:29 | Death Summary ---
<RASHEL MEJIA - Last Filed: 09/08/21 11:25> Summary - Providers Date of service: 09/07/21 Consults: 09/05/21 16:54 Consult to Dietitian/Nutrition [CONS] Routine Physician Instructions: Reason For Exam: DKA Reason for Consult: Nutrition Recommendations Reason for Consult: Diet education 09/05/21 19:45 Consult to Physician [CONS] Urgent Comment: Consulting Provider: KYMBERLY DENNY Physician Instructions: Reason For Exam: dka 09/06/21 09:00 Consult to Physician [CONS] Routine Comment: Consulting Provider: RANDOLPH PACHECO Physician Instructions: Reason For Exam: MARITZA 09/06/21 17:20 Consult to Physician [CONS] Routine Comment: Consulting Provider: KIM ORDONEZ Physician Instructions: Reason For Exam: Seizure Attending: ELEAZAR MORLEY MD - summary Date of admission: 09/05/21 19:44 Date of : 09/07/21 Reason for admission: Hyperosmolar Hyperglycemic Nonketotis Syndrome(HHNS), Metabolic Acidosis Disposition: 35-year-old female with past medical history of hypertension, DM, medical noncompliance, and morbid obesity found confused and with decreased responsi veness at home. EMS was notified and upon arrival the patient was found to be in distress and subsequent transported to [facility] for further care and evaluation of the aforementioned symptoms. Patient was found with a BG level greater than 2000 with severe metabolic acidosis. Patient was then admitted for HHNS and acute Kidney Injury and placed on DKA protocol. On 09/06/21- Patient remains severely acidotic despite insulin gtt and aggressive IVF resuscitation, BG remains over 1000. Was emergently intubated due to acute hypoxic respiratory failure and witnessed seizure required bcarb gtt and high pr essors. Seizure is most likely due to severe metabolic acidosis, orders placed for EEG and Neurology consult. Imagings with bilateral interstitial opacities, spike in WBCs, patient remains afebrile. Orders placed for cultures, empiric IV Abx initiated for possible CAP. Patient renal function continue to worsen, Nephrology was also consulted. Around 2100 on 09/06/21, A MARILEE PHILLIPS was called. I presented to the bedside and the patient was found to be in asystolic arrest. The patient was treated" with ACLS protocol with return of perfusing cardiac rhythm. Patient's family was contacted by field application engineer physician and they were made aware of patient's cardiac arrest and poor prognosis. The patient's family opted for AND/DNR status. On 09/07/21 around 0600, Patient niraj down then went asystole. Upon exam, patient had no response to verbal or deep sternal rub. Pupils were fixed and dilated. With no breath sounds, no peripheral pulses, and no heart sounds. Extremities were cold and clammy and no central nervous system reflexes. Patient pronounced at 06:07 AM on September 07, 2021. Patient's family was notified by nursing staffs. #Hyperosmolar Hyperglycemic Nonketotis Syndrome(HHNS) #Septic vs Hypovolemic Shock #Metabolic Acidosis #Bilateral Pneumonia-CAP #Acute Hypoxic Respiratory Failure #Severe Acidosis #Bilateral Pneumonia #Seizure #Acute Metabolic Acidosis #Acute Kidney Injury(MARITZA) most likely Vasomotor Nephropathy #Hypokalemia #Coffee Ground Emesis #Macrocytic Anemia <ELEAZAR MORLEY - Last Filed: 09/09/21 09:35> Summary - Providers Consults: 09/05/21 16:54 Consult to Dietitian/Nutrition [CONS] Routine Physician Instructions: Reason For Exam: DKA Reason for Consult: Nutrition Recommendations Reason for Consult: Diet education 09/05/21 19:45 Consult to Physician [CONS] Urgent Comment: Consulting Provider: KYMBERLY DENNY Physician Instructions: Reason For Exam: dka 09/06/21 09:00 Consult to Physician [CONS] Routine Comment: Consulting Provider: RANDOLPH PACHECO Physician Instructions: Reason For Exam: MARITZA 09/06/21 17:20 Consult to Physician [CONS] Routine Comment: Consulting Provider: KIM ORDONEZ Physician Instructions: Reason For Exam: Seizure Attending: ELEAZAR MORLEY MD - summary Date of admission: 09/05/21 19:44
--- NOTE | 2021-09-08 13:06 | Electrocardiograph Report ---
[facility] Test Date: 2021-09-05 Test Time: 17:45:33 Pat Name: MAYA ALCAZAR Department: Room: A261 1 Gender: F Business Management Analyst: NURSE : 1985 Requested By: ALISHA VEGAS Order Number: [id number] Reading MD: Mike Ernst Measurements Intervals [place] Rate: 91 P: 68 [place]: 182 QRS: 15 QRSD: 108 T: 6 QT: 439 QTc: 540 Interpretive Statements Sinus rhythm Nonspecific T wave abnormality Poor quality ECG No previous ECG available for comparison Electronically Signed On 09-08-2021 13:06:22 EST by Mike Ernst
== END 2021-09-07 06:30 | DRG 871 ==
LOC: ED 16:31 → CC1 19:44
PROVIDERS: ADMIT Internal Medicine; ATTEND Internal Medicine
PROC: 05HM33Z Insertion of Infusion Device into Right Internal Jugular Vein, Percutaneous Approach (ICD-10-PCS; 2021-09-05)
PROC: B543ZZA Ultrasonography of Right Jugular Veins, Guidance (ICD-10-PCS; 2021-09-05)
PROC: 4A033R1 Measurement of Arterial Saturation, Peripheral, Percutaneous Approach (ICD-10-PCS; 2021-09-05)
PROC: 5A1935Z Respiratory Ventilation, Less than 24 Consecutive Hours (ICD-10-PCS; principal; 2021-09-06)
PROC: 0BH17EZ Insertion of Endotracheal Airway into Trachea, Via Natural or Artificial Opening (ICD-10-PCS; 2021-09-06)
PROC: 05HM33Z Insertion of Infusion Device into Right Internal Jugular Vein, Percutaneous Approach (ICD-10-PCS; 2021-09-06)
PROC: B543ZZA Ultrasonography of Right Jugular Veins, Guidance (ICD-10-PCS; 2021-09-06)
DX: A41.9 Sepsis, unspecified organism (principal); E11.00 Type 2 diabetes mellitus with hyperosmolarity without nonketotic hyperglycemic-hyperosmolar coma (NKHHC); E11.10 Type 2 diabetes mellitus with ketoacidosis without coma; G93.41 Metabolic encephalopathy; N17.0 Acute kidney failure with tubular necrosis; R65.21 Severe sepsis with septic shock; J18.9 Pneumonia, unspecified organism; J96.01 Acute respiratory failure with hypoxia; M62.82 Rhabdomyolysis; E66.2 Morbid (severe) obesity with alveolar hypoventilation; Z68.44 Body mass index [BMI] 60.0-69.9, adult; D53.9 Nutritional anemia, unspecified; E87.6 Hypokalemia; E11.65 Type 2 diabetes mellitus with hyperglycemia; Z83.3 Family history of diabetes mellitus; Z82.49 Family history of ischemic heart disease and other diseases of the circulatory system; Z66 Do not resuscitate
CPT/HCPCS: 36415; 36600; 70450; 71045; 74018; 80048; 80053; 80307; 80320; 81001; 82140; 82550; 82553; 82570; 82803; 82805; 82947; 82962; 83735; 84100; 84145; 84300; 84478; 84484; 84702; 85007; 85025; 85610; 86140; 87205; 93005; 93010; 94002; 94003; G0378; J2354; J3480; J3490; J7120; Q0162; Q9967; G0480; J0171; J0456; J0610; J0696; J1265; J1644; J1815; J2060; J2370; J2704; J3010; J7030; J7050